=== PATIENT | male | born 1940 | race Caucasian/White ===

== ENCOUNTER 2018-03-02 15:54 | Observation (INO) ==
[2018-03-02] MEDS ORDERED: SALINE FLUSH 10ml SYRINGE IVF PRN (16:25)
--- NOTE | 2018-03-02 16:51 | Emergency Department Report ---
General Adult HPI - General Chief complaint: Medical Emergency Stated complaint: heat exhaustion Time Seen by Provider: 03/02/18 16:22 Source: police Mode of arrival: ambulatory Limitations: altered mental status - History of Present Illness HPI narrative: PT is brought in by [employer] after he was found walking around outside in over 90 degree temperatures wearing sweat pants and a sweat shirt. He had been out for several hours. Pt lives with his and son and it is not uncommon for him to be found several miles from home with no idea how to return. PD states they pick him up 3-4 times a week. Family has reported pt has been violent with them at times. has a difficult time trying to get pt to take his medications. Family is in the process of getting pt to [facility]. Pt does not have a DPOA. Onset (ago): unknown - Related Data Home Medications Medication Instructions Recorded Confirmed Donepezil [Aricept 10 mg] 10 mg PO HS 07/23/17 03/04/18 Finasteride [Proscar] 5 mg PO HS 07/23/17 03/04/18 Aspirin [Aspirin EC] 81 mg PO HS 11/08/17 03/04/18 Allergies Allergy/AdvReac Type Severity Reaction Status Date / Time No Known Drug Allergies Allergy Unknown Verified 02/15/18 10:14 Review of Systems Limitations: ROS unobtainable due to patient's medical condition PFS Patient Stated Medical History Alzheimer's Disease Yes Hypertension Yes Diabetes Mellitus Type 2 Yes Hx Benign Prostatic Yes Hyperplasia Surgical History: Prostate Biopsy, Cystoscopy. - Social History Smoking status: Former smoker Substance use type: does not use Alcohol intake frequency: does not drink Physical Exam - Limitations Limitations: altered mental status - General General appearance: alert - Normal Exams: Head:: Normocephalic without trauma Eyes:: Pupils are PERRLA w/ EOMI Chest/Respirations:: Clear all hooks, with good airflow, and symmetry bilaterally Cardiovascular:: Regular rate and rhythm, without murmur or gallop, Pulses 2+ all extremities, capillary refill, <2 seconds all extremities Abdomen:: Bowel sounds positive, soft, non-tender, non-distended Musculoskeletal:: No tenderness, or deformity noted, good range of motion, all extremities Integumentary:: No rashes Neurological:: Patient is alert - Expanded Neurological Exam Patient oriented to: Present: person. Absent: place, time Speech: Present: fluid speech - Psychiatric Psychiatric exam: Present: normal affect - Expanded Psychiatric Exam Expanded psych exam: Present: poor eye contact, loose associations Course Vital Signs Temperature 99.3 F 03/02/18 15:55 Pulse Rate 83 03/02/18 15:55 Respiratory Rate 18 03/02/18 15:55 Blood Pressure 129/68 03/02/18 15:55 Pulse Oximetry 94 03/02/18 15:55 Temperature 99.3 F 03/02/18 15:55 Pulse Rate 83 03/02/18 15:55 Respiratory Rate 18 03/02/18 15:55 Blood Pressure 129/68 03/02/18 15:55 Pulse Oximetry 94 03/02/18 15:55 Medical Decision Making - MDM Narrative Medical decision making narrative: Per [employer] pt does have an open case with DCF. Case management contacted to discuss care options. Case management recommends a medical admit if possible with a psych consult for competency. Labs reviewed with no acute findings. Dr Renae notified for any available admit criteria. She recommends discussing with case management. Case management contacted again and states pt can be admitted observation as he is a risk of harm to self and others. Dr Renae notified and will admit. - Differential Diagnosis Hypoglycemia, UTI, Dehydration, Dementia - Lab Data Lab results reviewed: Yes: I reviewed the patient's lab results. Result diagrams: 03/02/18 16:47 03/02/18 16:47 Disposition Clinical Impression: Progressive dementia with uncertain etiology Disposition: 02 To [facility] Condition: Stable - Seen By: midlevel
--- NOTE | 2018-03-02 19:22 | History & Physical Report ---
History of Present Illness Date: 03/02/18 Chief complaint: dementia with agitation HPI: The patient is a 77-year-old male with Alzheimer's type dementia who lives at home with his . He has been having progressive difficulties with behaviors. He frequently leaves the house and wanders the streets. The police department has been called multiple times to bring him back home. Per the patient's , they recommended that she follow him in the car when he goes out to walk. Today he was walking for 1-2 hours out in the heat and she was unable to get him to come back home or get in the car. While she was trying to get him into the car, the police and EMS were called and the patient eventually was brought to the emergency room for evaluation and treatment. The patient's states she can no longer handle him at home. She states at times he has violent with her and her son. I was asked to admit the patient for worsening behaviors with Alzheimer's dementia. He will likely need help with placement and case management will be consulted in the morning. When I came to see the patient in the emergency room, he was sleeping but awakened easily. He is pleasant currently and denies any complaints. He specifically denies chest pain, shortness of breath or nausea. He states he's not hungry. He has no complaints other than his right medial thumb has a blister which is covered with a Band-Aid. His was not present in the emergency room. I asked him if he was and he said no. I asked him if he lived alone and he said yes. I did call and talk with the patient's who had gone home to eat. Past medical history was obtained mostly from her. She states he has been healthy other than his dementia. She denies any recent illnesses for him. She states he has not had any new symptoms other than his violence and worsening confusion. Review of Systems ROS unobtainable: due to mental status (dementia) Past Medical History Medical History Updates: Hypertension, diabetes, presumed BPH, dementia. The patient's specifically denies history of cancer, strokes, heart disease, lung disease, seizures Surgical History: Prostate Biopsy, Cystoscopy. Bilateral cataract surgery Family History: No family history of Alzheimer's or other dementia Family History: As Above - Social History Smoking status: Former smoker Substance use type: does not use Alcohol intake: former (no history of heavy use) Housing: house Household members: spouse Medications Home Medications Medication Instructions Recorded Confirmed Type hydroCHLOROthiazide 25 mg PO DAILY #0 08/13/09 03/02/18 History [Hydrochlorothiazide] Donepezil [Aricept 10 mg] 10 mg PO HS 07/23/17 03/02/18 History Finasteride [Proscar] 5 mg PO HS 07/23/17 03/02/18 History Metformin HCl [Metformin HCl ER] 500 mg PO BID 07/23/17 03/02/18 History Aspirin [Aspirin EC] 81 mg PO HS 11/08/17 03/02/18 History Glimepiride [Amaryl] 2 mg PO DAILY 02/15/18 03/02/18 History Allergies Allergy/AdvReac Type Severity Reaction Status Date / Time No Known Drug Allergies Allergy Unknown Verified 02/15/18 10:14 Exam Vital Signs: Temperature 99.3 F 03/02/18 15:55 Pulse Rate 83 03/02/18 15:55 Respiratory Rate 18 03/02/18 15:55 Blood Pressure 129/68 03/02/18 15:55 Pulse Oximetry 94 03/02/18 15:55 Comments: Temperature is 99.3, heart rate 83, respirations 18, blood pressure 129/68, O2 sat 94% on room air GEN-alert, oriented to self only, no acute distress HEENT-left pupil is slightly larger than the right and irregular in shape. Both pupils are reactive to light. Sclera are anicteric. Oropharynx is moist. NECK-supple, carotids are silent CV-regular rate and rhythm with an occasional ectopic beat. No murmurs CHEST-clear to auscultation bilaterally ABD-mildly firm, no tenderness, no rebound or guarding, positive bowel sounds -no Donato EXT-no edema NEURO-significant for severe dementia. No tremors. Cranial nerves II through XII is somewhat difficult to obtain, but no deficits are noted other than pupils being unequal which is likely a postsurgical change from cataract surgery. Motor strength is equal in the upper and lower extremities. He reportedly walked for an hour or more today unassisted. SKIN-arm and dry. He has multiple tattoos. He has a blister on the right thumb which is covered with a Band-Aid Results - Labs CBC & Chem 7: 03/02/18 16:47 03/02/18 16:47 Labs: Liver enzymes are essentially normal. Troponin is normal. Urinalysis is negative for signs of infection. - Impressions EKG reveals sinus rhythm Assessment and Plan Assessment and Plan: Impression Alzheimer's dementia Increasing behavior issues, most likely related to his dementia. Currently, no signs of infection or other acute issues that would cause a delirium. Type 2 diabetes mellitus Hypertension Presumed BPH Unequal pupils, likely secondary to cataract surgery Mild anemia with hemoglobin 10.9 Plan We'll admit the patient to the hospital as observation for safety regarding increased behavior issues and wandering which makes him at risk for hyperthermia with elevated temperatures outside. Consult case management/social work tomorrow to help with placement. Family may need assistance with initiating guardianship. Resume home medications. Check B-12 and TSH regarding altered mental status. Consider CT head if not done an outpatient setting. Monitor Accu-Cheks. Will have Haldol available IV or by mouth for agitation if needed DVT Prophylaxis: other Resuscitation Status: Full Code - Physician Narrative Narrative: Date: 03/02/18 Time: 1916 Hospital Course Summary Disclaimer: The visit summary below is not to be considered part of the above Progress Note.
[2018-03-02] MEDS ORDERED: HALOPERIDOL 5 MG/ML INJECTION IVP PRN (19:33)
[2018-03-02] MEDS ORDERED: HALOPERIDOL 1 MG TABLET PO PRN (19:33)
[2018-03-02] MEDS ORDERED: SENNA + DOCUSATE TABLET PO PRN (19:33)
[2018-03-02] MEDS ORDERED: GLUCOSE ORAL GEL 40% 37.5gm PO PRN (19:33)
[2018-03-02] MEDS ORDERED: DEXTROSE 50% SYRINGE 50ml (1 AMP) IVP PRN (19:33)
[2018-03-02] MEDS ORDERED: ONDANSETRON 4 MG/2 ML INJECTION IVP PRN (19:33)
[2018-03-02] MEDS ORDERED: ACETAMINOPHEN 325 MG TABLET PO PRN (19:33)
[2018-03-02] MEDS ORDERED: FALL RISK - PHARMACY CONSULT MC ONE (19:49)
[2018-03-02 19:56] VITALS: BMI 21.7
[2018-03-03] MEDS ORDERED: CYANOCOBALAMIN (B-12) 500mcg TABLET PO SCH (09:00)
--- NOTE | 2018-03-03 12:59 | Progress Note ---
- Date 03/03/18 Subjective: Brennon is seen in follow up. He is resting quietly, opens eyes to command. He cannot tell me where he is "Here". Does not know year "I don't know" Has trouble remembering his name (after a pause) "Vasyl" Is unable to give me any additional information. Denies pain. Objective Vital signs: Temperature 95.5 F L 03/03/18 07:45 Pulse Rate 66 03/03/18 07:45 Respiratory Rate 14 03/03/18 07:45 Blood Pressure 124/78 03/03/18 07:45 Pulse Oximetry 97 03/03/18 07:45 Height/Weight/BMI: Height 1.68 m Weight 60.9 kg Body Mass Index 21.7 Comments: Gen.: Patient is arousable. Very confused. Somewhat oriented to self only. He appears younger than stated age. He is a bit disheveled. Head: Atraumatic. Neck: Supple. Cardiovascular: S1, S2. Regular rate and rhythm. No peripheral edema. Pulmonary: Lungs are clear to auscultation bilaterally. Respirations even, unlabored. Abdomen: Soft, nontender, nondistended. Extremities: No edema, no cyanosis or clubbing. Neuro: Patient is oriented only to self. He is alert. He is moving all extremities. Results - Labs CBC & Chem 7: 03/02/18 16:47 03/02/18 16:47 Assessment and Plan (1) Progressive dementia with uncertain etiology Current visit: Yes Status: Acute Assessment and Plan: Impression Alzheimer's dementia Increasing behavior issues, most likely related to his dementia. Currently, no signs of infection or other acute issues that would cause a delirium. Type 2 diabetes mellitus Hypertension Presumed BPH Unequal pupils, likely secondary to cataract surgery Mild anemia with hemoglobin 10.9 Plan 03/03/18 Continue observation stay due to safety concerns, wandering, self-care deficit. Case management is working on possible placement issues. His lack of a guardian is a barrier, we may need to initiate a court hold to allow him to be admitted to an inpatient psychiatry unit for stabilization. Family reports that he has been volatile in regards to behaviors, has threatened and son. His wandering makes him at high risk for injury due to elevated temperature and inability to maintain orientation. Will resume aspirin and Proscar from home medications. His A1c is mildly elevated, but blood sugar here has been low normal. Continue to monitor blood sugar and hold Amaryl and metformin. We'll hold antihypertensives. Repeat labs in a.m. for stability due to anemia, mild dehydration. Will hold off on any DVT prophylaxis, as patient has confusion that SCDs could exacerbate. He has elevated fall risk, hold off on Lovenox for now. He continues to require inpatient admission, we may need to initiate anticoagulants at that time. 03/03/2018-4 PM-I examined the patient independently. I reviewed this chart, the patient history, and the NETWORK SUPPORT's/PA's documented findings as above. We discussed and formulated the assessment and plan as above with the additions below.-Dr. Renae Patient was seen this afternoon in his room accompanied by his . He is lying in bed and eating lunch. He states he is feeling fine. He denies any pain. He denies shortness of breath. He denies nausea. His states that his confusion seems at baseline. This morning he was anxious, agitated and trying to punch staff members. He was taking off his down and trying to ambulate in the halls unclothed. On exam he is alert and pleasant. He continues to be confused which is his baseline. Chest is clear to auscultation. Cardiovascular reveals regular rate and rhythm. Abdomen is soft and nontender. Extremities are free of edema. Lab reveals a borderline low B 12 level of 314. Hemoglobin A1c is 7.8. TSH is 1.32. Impression Alzheimer's type dementia with increasing behavior issues Type 2 diabetes Hypertension Borderline low B 12 Mild anemia Plan Admit to talk with the patient's and the patient does not have a DPOA. I do not think he is competent to make a decision regarding her DPOA. Dr. Ramirez has been consulted to help determine competency to make his own decisions. He will likely need a guardian. The wrapper caser is helping the family with safe discharge options. We've also asked Dr. Ramirez to help with medications regarding his intermittent aggressive behaviors. Check methylmalonic acid level and homocystine level regarding low B 12. Start oral B 12 at this time. Recheck CBC and basic metabolic profile tomorrow. DVT Prophylaxis: other Resuscitation Status: Full Code - Physician Narrative Narrative: Date: 03/03/18 Time: 1256 Hospital Course Summary Disclaimer: The visit summary below is not to be considered part of the above Progress Note. Hospital Course: 03/03/18 Continue observation stay due to safety concerns, wandering, self-care deficit. Case management is working on possible placement issues. His lack of a guardian is a barrier, we may need to initiate a court hold to allow him to be admitted to an inpatient psychiatry unit for stabilization. Family reports that he has been volatile in regards to behaviors, has threatened and son. His wandering makes him at high risk for injury due to elevated temperature and inability to maintain orientation. Will resume aspirin and Proscar from home medications. His A1c is mildly elevated, but blood sugar here has been low normal. Continue to monitor blood sugar and hold Amaryl and metformin. We'll hold antihypertensives. Repeat labs in a.m. for stability due to anemia, mild dehydration. Will hold off on any DVT prophylaxis, as patient has confusion that SCDs could exacerbate. He has elevated fall risk, hold off on Lovenox for now. He continues to require inpatient admission, we may need to initiate anticoagulants at that time.
[2018-03-03 15:40] VITALS: BP 133/69; PULSE 64; RESP 18; TEMP 97.5; O2SAT 96
--- NOTE | 2018-03-03 16:51 | Discharge Summary ---
Discharge Information Date of admission: 03/02/18 18:58 Attending Physician: Bobbi Renae MD Primary care physician: Liang Landry MD Consults: 03/02/18 19:33 Case Management Consult [CONS] Routine Reason For Exam: help with placement 03/03/18 09:45 Physician Consult [CONS] Routine Consulting Provider: Daniela Ramirez Reason For Exam: dementia with behaviors-help with behaviors Ordering Provider has Notified Oracle Manager: Yes 03/03/18 10:58 Physician [Physician Consult] [CONS] Routine Consulting Provider: [facility] Reason For Exam: placement Ordering Provider has Notified Oracle Manager: Yes - Discharge Diagnosis (1) Progressive dementia with uncertain etiology Status: Acute Alzheimer's dementia Increasing behavior issues, most likely related to his dementia. Currently, no signs of infection or other acute issues that would cause a delirium. Type 2 diabetes mellitus Hypertension Presumed BPH Unequal pupils, likely secondary to cataract surgery Mild anemia with hemoglobin 10.9 - Laboratory Labs: Laboratory Tests 03/02/18 03/02/18 03/02/18 16:47 16:47 16:47 WBC 4.7 Hgb 10.9 L Plt Count 308 Sodium 146 Potassium 3.7 Chloride 104 Carbon Dioxide 30 Anion Gap 12 BUN 21.0 H Creatinine 1.4 GFR Calculation 49 BUN/Creatinine Ratio 15 Glucose 141 H Glucometer Hemoglobin A1c Calculated Osmolality 286 H Calcium 9.2 Total Bilirubin 0.40 AST 17 ALT 11 Alkaline Phosphatase 145 H Troponin I < 0.012 Total Protein 7.3 Albumin 4.0 Globulin 3.3 Albumin/Globulin Ratio 1.2 Vitamin B12 314 TSH 03/02/18 03/02/18 16:47 19:46 WBC Hgb Plt Count Sodium Potassium Chloride Carbon Dioxide Anion Gap BUN Creatinine GFR Calculation BUN/Creatinine Ratio Glucose Glucometer 100 Hemoglobin A1c 7.8 H Calculated Osmolality Calcium Total Bilirubin AST ALT Alkaline Phosphatase Troponin I Total Protein Albumin Globulin Albumin/Globulin Ratio Vitamin B12 TSH 1.32 Urinalysis was essentially negative History of Present Illness HPI: The patient is a 77-year-old male with Alzheimer's type dementia who lives at home with his . He has been having progressive difficulties with behaviors. He frequently leaves the house and wanders the streets. The police department has been called multiple times to bring him back home. Per the patient's , they recommended that she follow him in the car when he goes out to walk. Today he was walking for 1-2 hours out in the heat and she was unable to get him to come back home or get in the car. While she was trying to get him into the car, the police and EMS were called and the patient eventually was brought to the emergency room for evaluation and treatment. The patient's states she can no longer handle him at home. She states at times he has violent with her and her son. I was asked to admit the patient for worsening behaviors with Alzheimer's dementia. He will likely need help with placement and case management will be consulted in the morning. When I came to see the patient in the emergency room, he was sleeping but awakened easily. He is pleasant currently and denies any complaints. He specifically denies chest pain, shortness of breath or nausea. He states he's not hungry. He has no complaints other than his right medial thumb has a blister which is covered with a Band-Aid. His was not present in the emergency room. I asked him if he was and he said no. I asked him if he lived alone and he said yes. I did call and talk with the patient's by telephone. Past medical history was obtained mostly from her. She states he has been healthy other than his dementia. She denies any recent illnesses for him. She states he has not had any new symptoms other than his violence and worsening confusion. Objective Vital signs: Temperature 97.5 F 03/03/18 15:37 Pulse Rate 64 03/03/18 15:37 Respiratory Rate 18 03/03/18 15:37 Blood Pressure 133/69 03/03/18 15:37 Pulse Oximetry 96 03/03/18 15:37 Height/Weight/BMI: Height 1.68 m Weight 60.9 kg Body Mass Index 21.7 Hospital Course This is a general summary of the patient's hospital course. For more details refer to the complete medical record. Hospital course: 03/02/2018 Impression Alzheimer's dementia Increasing behavior issues, most likely related to his dementia. Currently, no signs of infection or other acute issues that would cause a delirium. Type 2 diabetes mellitus Hypertension Presumed BPH Unequal pupils, likely secondary to cataract surgery Mild anemia with hemoglobin 10.9 Plan We'll admit the patient to the hospital as observation for safety regarding increased behavior issues and wandering which makes him at risk for hyperthermia with elevated temperatures outside. Consult case management/social work tomorrow to help with placement. Family may need assistance with initiating guardianship. Resume home medications. Check B-12 and TSH regarding altered mental status. Consider CT head if not done an outpatient setting. Monitor Accu-Cheks. Will have Haldol available IV or by mouth for agitation if needed 03/03/18 Continue observation stay due to safety concerns, wandering, self-care deficit. Case management is working on possible placement issues. His lack of a guardian is a barrier, we may need to initiate a court hold to allow him to be admitted to an inpatient psychiatry unit for stabilization. Family reports that he has been volatile in regards to behaviors, has threatened and son. His wandering makes him at high risk for injury due to elevated temperature and inability to maintain orientation. Will resume aspirin and Proscar from home medications. His A1c is mildly elevated, but blood sugar here has been low normal. Continue to monitor blood sugar and hold Amaryl and metformin. We'll hold antihypertensives. Repeat labs in a.m. for stability due to anemia, mild dehydration. Will hold off on any DVT prophylaxis, as patient has confusion that SCDs could exacerbate. He has elevated fall risk, hold off on Lovenox for now. He continues to require inpatient admission, we may need to initiate anticoagulants at that time. Addendum-Dr. Ramirez did see the patient and after discussion with case management and the patient's , the patient will be accepted to [facility] for further evaluation and treatment of his dementia with aggressive behaviors. Will transfer to [facility] unit this afternoon. Would hold on hydrochlorothiazide for now and watch blood pressure. This may need to be restarted. Blood sugars have been well controlled off of metformin and Amaryl. I would monitor blood sugars off of these medications and if blood sugars are frequently elevated, can restart. Resuscitation Status: Full Code Discharge Plan - Discharge Disposition Disposition: 63 To [facility] *Condition: Stable Reason For Visit (Visit label in EMR): dementia with behaviors - Discharge Medications Medication Comments: Home meds prior to admission were: Hydrochlorothiazide 25 mg one by mouth daily Aricept 10 mg 1 by mouth daily at bedtime Proscar 5 mg by mouth daily at bedtime Metformin 500 mg by mouth twice a day Aspirin 81 mg daily at bedtime Glimepiride 2 mg by mouth daily *Discharge Medications: Continue Finasteride [Proscar] 5 mg PO HS Donepezil [Aricept 10 mg] 10 mg PO HS Aspirin [Aspirin EC] 81 mg PO HS Discontinued hydroCHLOROthiazide [Hydrochlorothiazide] 25 mg PO DAILY #0 Metformin HCl [Metformin HCl ER] 500 mg PO BID Glimepiride [Amaryl] 2 mg PO DAILY - Discharge Packet/Instructions *Diet: Diabetic diet *Activity: Up with assist *Pain Management/Treatment: Tylenol as needed *Wound Care: Bandage to right thumb as needed *Expected Signs/Symptoms: Not applicable *Notify Physician if: Not applicable *During Business Hours Contact: Not applicable *After Business Hours Contact: Not applicable *Pending Lab/Results: Follow up w/Provider - IRU/GEN Discharge/Transfer - Referrals/Follow Up - Patient Handouts - Dismissal Complete Discharge Instructions are:: Complete Physician Narrative - Narrative Attestation Narrative: Date: 03/03/18 Time: [id number]
[2018-03-03] MEDS ORDERED: HALOPERIDOL 5 MG/ML INJECTION IM PRN (19:50)
[2018-03-03] MEDS ORDERED: HALOPERIDOL 0.5 MG TABLET PO PRN (19:50)
[2018-03-03] MEDS ORDERED: LORazepam 0.5 MG TABLET PO PRN (19:50)
[2018-03-03] MEDS ORDERED: FINASTERIDE 5 MG TABLET PO SCH (21:00)
[2018-03-03] MEDS ORDERED: DONEPEZIL 10 MG TABLET PO SCH (21:00)
[2018-03-03] MEDS ORDERED: ASPIRIN *EC* 81 MG TABLET PO SCH (21:00)
== END 2018-03-03 18:10 ==
LOC: EDHOLD 15:54 → ED 15:54 → EDHOLD 19:15 → MED 19:20
PROVIDERS: ADMIT Internal Medicine; ATTEND Internal Medicine

== ENCOUNTER 2018-03-03 18:55 | Inpatient (IN) ==
[2018-03-03] MEDS ORDERED: GLUCOSE ORAL GEL 40% 37.5gm PO PRN (20:34)
[2018-03-03] MEDS ORDERED: SENNA + DOCUSATE TABLET PO PRN (20:34)
[2018-03-03] MEDS ORDERED: FALL RISK - PHARMACY CONSULT MC ONE ×2 (20:34)
[2018-03-03] MEDS ORDERED: DEXTROSE 50% SYRINGE 50ml (1 AMP) IVP PRN (20:34)
[2018-03-03] MEDS ORDERED: SALINE FLUSH 10ml SYRINGE IVF PRN (20:34)
[2018-03-03] MEDS ORDERED: HALOPERIDOL 0.5 MG TABLET PO PRN (20:35)
[2018-03-03] MEDS ORDERED: HALOPERIDOL 5 MG/ML INJECTION IM PRN (20:35)
[2018-03-03] MEDS ORDERED: LORazepam 0.5 MG TABLET PO PRN (20:35)
[2018-03-03] MEDS: FINASTERIDE 5 MG TABLET PO SCH ×2 (21:57→22:48)
[2018-03-03] MEDS: ASPIRIN *EC* 81 MG TABLET PO SCH ×2 (22:07→22:48)
[2018-03-03 22:22] VITALS: BMI 23.4
[2018-03-04] MEDS: CYANOCOBALAMIN (B-12) 500mcg TABLET PO SCH (08:22)
--- NOTE | 2018-03-04 10:09 | History & Physical Report ---
History of Present Illness Date: 03/04/18 HPI: Brennon Fallon is a 77 y/o with a hx of dementia, who was [place] [facility] [place] for increasing behaviors. Specifically, there were concerns about wandering and aggressive behavior. Multiple imaging studies were obtained: films of right wrist/hand revealed chronic deformity of distal radius and questionable ulnar styloid fx; CT head/c-spine were neg for acute findings. Labs were stable with the exception of mild normocytic anemia. Vit B12 was low-normal and methylmalonic acid was ordered, pending. HCTZ was held on admit d/t concern about dehydration. Hb A1c was 7.8%. Metformin and Amaryl were held d/t well- controlled blood sugars. Dr. Ramirez was consulted and [facility]. Mr. Fallon was seen on 03/04/18. He was pleasantly confused and did not answer all questions. He was in no acute distress. He was a poor historian and ROS/PMH was obtained from previous admission. The PURCHASING EXPEDITOR at bedside who was helping him get ready for the day reported that he was c/o b/l arm pain when she gently touched his arms. His right wrist was swollen and tender over the distal radius , and he had reduced ROM. He was unable to provide any details as to duration/ cause of symptoms. There were also ecchymotic areas on both arms. Review of Systems ROS unobtainable: due to mental status Review of systems: c/o right wrist pain Past Medical History Medical History Updates: Alzheimer's dementia. Type 2 diabetes mellitus. Hypertension. Presumed BPH. OA. Unequal pupils, likely secondary to cataract surgery. Mild anemia Surgical History: Prostate Biopsy, Cystoscopy. Bilateral cataract surgery Family History Updates: Unobtainable from patient; per previous H&P: No family history of Alzheimer's or other dementia Family History: As Above - Social History Smoking status: Former smoker Substance use type: does not use Alcohol intake frequency: former alcohol drinker (reportedly not heavy EtOH use) Household members: spouse Medications Home Medications Medication Instructions Recorded Confirmed Type Donepezil [Aricept 10 mg] 10 mg PO HS 07/23/17 03/04/18 History Finasteride [Proscar] 5 mg PO HS 07/23/17 03/04/18 History Aspirin [Aspirin EC] 81 mg PO HS 11/08/17 03/04/18 History Allergies Allergy/AdvReac Type Severity Reaction Status Date / Time No Known Drug Allergies Allergy Unknown Verified 02/15/18 10:14 Exam Vital Signs: Temperature 97.4 F 03/04/18 08:00 Pulse Rate 58 L 03/04/18 08:00 Respiratory Rate 16 03/04/18 08:00 Blood Pressure 156/83 H 03/04/18 08:00 Pulse Oximetry 98 03/04/18 08:00 Height/Weight/BMI: Height 1.6 m Weight 60.1 kg Body Mass Index 23.4 - Constitutional Present: no acute distress, well nourished, well developed, thin - Routine HEENT Exam Head: Present: normocephalic Eye: Absent: conjunctival icterus, scleral injection ENT: Present: oropharynx clear - Routine Neck Exam Present: supple. Absent: lymphadenopathy - Routine Respiratory Exam Present: CTA bilaterally - Routine Cardiovascular Exam Present: RRR, S1, S2 - Routine Abdominal Exam Present: soft, normoactive bowel sounds, non distended, non tender - Routine Extremities Exam Present: no edema, pulses intact, joint swelling (right wrist with tenderness over distal radius. Ulnar styloid nontender. Reduced ROM to right wrist.) - Routine Skin Exam Present: intact, dry, warm, ecchymosis (b/l forearms) - Routine Neurological Exam Present: alert, altered mental status, moving all extremities - Routine Psychiatric Exam Present: cooperative Assessment and Plan (1) Progressive dementia with uncertain etiology Current visit: No Status: Acute Assessment and Plan: ASSESSMENT Alzheimer's dementia Type 2 diabetes mellitus Hypertension Presumed BPH OA Unequal pupils, likely secondary to cataract surgery Mild normocytic anemia PLAN Agree with admission to [facility]. Previous imaging studies were reviewed. No acute fracture of right wrist over area of tenderness to distal radius. HTN - HCTZ was discontinued while on acute. Monitor BP and may consider restarting a different agent to minimize risk for dehydration, if BP are consistently elevated. DM2 - Metformin 500 mg BID and Amaryl 2 mg daily were discontinued while on acute. Monitor sugars and may restart Metformin and monitor response. Vit B12 low-normal and methylmalonic acid is pending. Care to return to Dr. Landry at time of discharge. 03/04/2018-10:30 PM -I examined the patient independently. I reviewed this chart , the patient history, and the RESEARCH MANUFACTURING OPERATOR's/PA's documented findings as above. We discussed and formulated the assessment and plan as above with the additions below.-Dr. Renae Patient was seen earlier this evening in his room. He was eating chocolate pudding. When asked if he was having any pain he pointed to his right wrist. He does have swelling and mild erythema over the dorsum of his right wrist. This area is tender. There is no increased warmth. He denies pain elsewhere. He denies any other complaints, but does have severe dementia. He denies feeling short of breath. He denies any chest pain. He denies any nausea. On Exam, he is alert and in no acute distress. Chest is clear to auscultation. Cardiovascular reveals a regular rate and rhythm. Abdomen is soft and nontender. Bilateral lower extremities reveal no edema. Left upper extremity reveals no edema. Right dorsum of his wrist feels edema and erythema with tenderness. 02/15/2018 x-ray of the right hand reveals a possible nondisplaced ulnar styloid fracture. 02/15/2018 CT head reveals no evidence of acute traumatic abnormality. He does have signs of chronic microvascular ischemia. 02/15/2018 CT C-spine shows no acute traumatic abnormality of the cervical spine. Impression and plan Severe dementia with behaviors-the patient was admitted to the [facility] to initiate medical therapy Hypertension-monitor, may need to restart hydrochlorothiazide versus a different antihypertensive if he continues to have elevated blood pressure Regarding diabetes, consider restarting metformin if blood sugars are elevated Re: B-12 deficiency-continue B-12 supplement and await homocystine and methylmalonic acid levels Regarding right wrist pain and swelling with possible nondisplaced ulnar styloid fracture, will repeat x-rays today and consult Dr. Saravia to see the patient tomorrow. I did ask the nurse to give him some Tylenol for pain and could offer a cold pack as well. Resuscitation Status: Full Code - Physician Narrative Narrative: Date: 03/04/18 Time: 1006 Hospital Course Summary Disclaimer: The visit summary below is not to be considered part of the above Progress Note. Hospital Course: 03/04/18 Agree with admission to [facility]. Previous imaging studies were reviewed. No acute fracture of right wrist over area of tenderness to distal radius. HTN - HCTZ was discontinued while on acute. Monitor BP and may consider restarting a different agent to minimize risk for dehydration, if BP are consistently elevated. DM2 - Metformin 500 mg BID and Amaryl 2 mg daily were discontinued while on acute. Monitor sugars and may restart Metformin and monitor response. Vit B12 low-normal and methylmalonic acid is pending.
--- NOTE | 2018-03-04 11:48 | 24 Hour Neuropsychiatic Eval ---
Date of Admission: 03/03/18 18:55 Chief complaint: "I don't know" History of Present Illness: Patient is a 77 y/o , retired male who was admitted to [facility] [place] due to concerns for safety. After ensuring medical stabilization, patient was then admitted to [facility] on 03/03/18 for psychiatric evaluation and stabilization. He has previously been diagnosed with dementia. He also has a past hx of DMI and HTN but has been refusing his medications. He has been cursing at staff and verbally aggressive at times since admission. Patient has been living at home with his , who feels she is no longer able to safely care for him. He has been wandering from the home even in the heat, and she has not been able to redirect him to come back home with her. Per hospitalist: "Multiple imaging studies were obtained: films of right wrist/ hand revealed chronic deformity of distal radius and questionable ulnar styloid fx; CT head/c-spine were neg for acute findings. Labs were stable with the exception of mild normocytic anemia. Vit B12 was low-normal and methylmalonic acid was ordered, pending. HCTZ was held on admit d/t concern about dehydration. Hb A1c was 7.8%. Metformin and Amaryl were held d/t well- controlled blood sugars." Patient does not have a DPOA. He was willing to sign himself in to the unit and APS has been contacted re: emergency guardianship. Will file MHP if patient attempts to leave or receives medications against his will. Dementia: Memory Impairment, Poor Executive Functioning Reviewed: Home Medications, Allergies, Current Lab Data, Imaging Reports, Current EKG(s), Nursing Notes, Physician Consults [facility] Patient Stated Medical History Alzheimer's Disease Yes Dementia Yes Hypertension Yes Diabetes Mellitus Type 2 Yes Hx Benign Prostatic Yes Hyperplasia Medical History Updates: Alzheimer's dementia. Type 2 diabetes mellitus. Hypertension. Presumed BPH. OA. Unequal pupils, likely secondary to cataract surgery. Mild anemia Surgical History: Prostate Biopsy, Cystoscopy. Bilateral cataract surgery Family History Updates: Unobtainable from patient; per previous H&P: No family history of Alzheimer's or other dementia - Social History Smoking status: Former smoker Substance use type: does not use Alcohol intake: former (no history of heavy use) Alcohol intake frequency: former alcohol drinker (reportedly not heavy EtOH use) Housing: house Household members: spouse Social history: Unobtainable from patient - will gather collateral from . Lives with at home. Strengths: Family. Needs DPOA and to apply for Medicaid for placement. Review of Systems ROS unobtainable: due to mental status Mental Status Exam Vitals: Last Vital Signs Temp 97.4 F 03/04/18 08:00 Pulse 58 L 03/04/18 08:00 Resp 16 03/04/18 08:00 BP 156/83 H 03/04/18 08:00 Pulse Ox 98 03/04/18 08:00 Height: 1.6 m Weight: 60.1 kg - Mental Status Exam Muscle Strength/Tone: Weak Dressing: Casual Grooming: Disheveled Attitude: Cooperative Motor Activity: Retardation Eye Contact: Fair Speech: Slowed Volume: Soft Rhythm: Paucity of Language Sensory: Alert Orientation: Disoriented to time, Disoriented to place, Disoriented to situation , Oriented to person Mood: Neutral (mood has been labile per and staff at admission) Rate of Thoughts: Delayed Thought Organization: [place], Confused Associations: Illogical Abstract Reasoning: Impaired, concrete Computation: Poor Computation Thought Content: Other (Poverty of thought) Perception/Psychotic: Other (Unclear; denies and does not appear to be responding to internal stimuli) Language: Naming Impaired Fund of Knowledge: Poor fund of knowledge Memory: Poor-immediate, Poor-recent, Poor-remote Suicidal Ideation: Denies Homicidal Ideation: Denies Insight: Impaired Judgement: Impaired Impulse Control: Poor - Laboratory Laboratory Results - last 24 hr 03/03/18 03/04/18 03/04/18 22:12 06:19 09:59 Glucometer 123 132 264 Assessment and Plan (1) Major neurocognitive disorder Problem details: Moderate, etiology unknown at this point, with behavioral disturbance Current visit: Yes Status: Acute Agree with admission to [facility] for psychiatric evaluation and stabilization. Maintain safety and elopment precautios. Patient is voluntary at this point but we will file MHP if he attempts to leave or requires meds against his will. Have begun process for emergency guardianship as he has no DPOA. Will continue home meds for now with PRN medications available for anxiety/ agitation. Have consulted hospitalist for optimization of medical comorbidities. On admission: CBC, CMP, TSH, UA, Vitamin B12 and folate levels Will obtain additional collateral from , family. Patient cannot safely return to living at home with and will require placement. Will give 1x dose of Depakote sprinkles 250mg PO with dinner and monitor evening behavior/agitation.
[2018-03-04] MEDS: DIVALPROEX SPRINKLE 125 MG CAPSULE PO SCH (17:58)
[2018-03-04] MEDS: ASPIRIN *EC* 81 MG TABLET PO SCH (20:29)
[2018-03-04] MEDS: FINASTERIDE 5 MG TABLET PO SCH (20:29)
[2018-03-04] MEDS: ACETAMINOPHEN 325 MG TABLET PO PRN (21:42)
--- NOTE | 2018-03-05 08:20 | XRay Report ---
Indication: right wrist pain and swelling unknown if injury PROCEDURE: XR wrist RT 3-4 views: Encounter: Subsequent Comparison: February 15, 2018 Findings: Subtle lucency seen in the distal ulna could represent a nondisplaced fracture. No definite periosteal reaction or callus formation however. No new area concerning for fracture. Degenerative change in the radiocarpal joint and radial styloid. Impression: Possible nondisplaced distal ulnar fracture. .
[2018-03-05] MEDS: CYANOCOBALAMIN (B-12) 500mcg TABLET PO SCH (10:17)
--- NOTE | 2018-03-05 10:53 | Neuropsych Progress Note ---
[facility] Subjective Date: 03/05/18 - Sujective/Severity of Illness Medications: Acetaminophen (Tylenol) 325 - 650 mg PO Q5H PRN PRN Reason: Discomfort Last Admin: 03/04/18 21:42 Dose: 650 mg Aspirin (Ecotrin) 81 mg PO HS [facility] Last Admin: 03/04/18 20:29 Dose: 81 mg Cyanocobalamin (Vit. B-12) 1,000 mcg PO DAILY [facility] Last Admin: 03/05/18 10:17 Dose: 1,000 mcg Dextrose (D50%W) 20 ml IVP PRN PRN PRN Reason: Hypoglycemia Divalproex Sodium (Depakote Sprinkle) 250 mg PO 18 [facility] Last Admin: 03/04/18 17:58 Dose: 250 mg Finasteride (Proscar) 5 mg PO HS [facility] Last Admin: 03/04/18 20:29 Dose: 5 mg Glucose (Glutose 15) 37.5 gm PO PRN PRN PRN Reason: Hypoglycemia Haloperidol (Haldol) 0.5 mg PO Q6H PRN PRN Reason: Extreme agitation Haloperidol Lactate (Haldol) 0.5 mg IM Q6H PRN PRN Reason: Extreme agitation Lorazepam (Ativan) 0.5 mg PO Q6H PRN PRN Reason: Extreme agitation Lorazepam (Ativan Inj) 0.5 mg IM Q6H PRN PRN Reason: Extreme agitation Senna/Docusate Sodium (Senna Plus Tablet) 1 tab PO BID PRN PRN Reason: Constipation Sodium Chloride (Iv Flush) 10 - 80 ml IVF PRN PRN PRN Reason: Flushing Subjective: Patient seen and chart reviewed. Case discussed with treatment team. Patient is asleep at time of rounds. Nursing staff report patient has been overall cooperative. He was say briefly at time he would like to leave but has been amenable to staying. Will request PT/OT eval for possible discharge to SNU. APS report filed to attempt to obtain guardian for patient. Patient has been adherent with medications. Patient slept 8.5 hours overnight. VSS. Patient is eating well. Psychotropic PRNs required in the past 24 hours: none. Start Time: 12:20 Stop Time: 12:40 Mental Status Exam Vitals: Last Vital Signs Temp 98.9 F 03/04/18 21:34 Pulse 84 03/04/18 21:34 Resp 24 03/04/18 21:34 BP 160/86 H 03/04/18 21:34 Pulse Ox 96 03/04/18 21:34 Height: 1.6 m Weight: 60.1 kg - Mental Status Exam Muscle Strength/Tone: Weak Dressing: Casual Grooming: Disheveled Attitude: Cooperative Motor Activity: Retardation Eye Contact: Good Speech: Slowed Volume: Soft Rhythm: Paucity of Language Orientation: Disoriented to time, Disoriented to place, Disoriented to situation , Oriented to person Mood: Neutral Affect: Bright (laughs often per nursing staff, often inappropriately) Rate of Thoughts: Delayed Thought Organization: [place], Confused Associations: Illogical Abstract Reasoning: Impaired, concrete Computation: Poor Computation Thought Content: Other (Poverty of thought) Perception/Psychotic: Perception Normal Language: Naming Impaired Fund of Knowledge: Poor fund of knowledge Memory: Poor-immediate, Poor-recent, Poor-remote Suicidal Ideation: None Homicidal Ideation: None Insight: Impaired Judgement: Impaired Impulse Control: Fair - Laboratory Laboratory Results - last 24 hr 03/04/18 03/04/18 03/05/18 14:06 21:40 07:25 Glucometer 288 254 Uric Acid 6.6 03/05/18 03/05/18 07:25 10:22 Glucometer 138 143 Uric Acid Assessment and Plan (1) Major neurocognitive disorder Problem details: Moderate, etiology unknown at this point, with behavioral disturbance Current visit: Yes Status: Acute Continue Depakote DR as above as patient did well last night. Will also order Vitamin B12 1000mg IM x 3 days. Hospital Course Summary Disclaimer: The visit summary below is not to be considered part of the above Progress Note. Hospital Course: 03/04/18 Agree with admission to [facility]. Previous imaging studies were reviewed. No acute fracture of right wrist over area of tenderness to distal radius. HTN - HCTZ was discontinued while on acute. Monitor BP and may consider restarting a different agent to minimize risk for dehydration, if BP are consistently elevated. DM2 - Metformin 500 mg BID and Amaryl 2 mg daily were discontinued while on acute. Monitor sugars and may restart Metformin and monitor response. Vit B12 low-normal and methylmalonic acid is pending. 03/04/18 Psych: Start Depakote DR 250mg PO daily at dinnertime to target HS agitation. 03/05/18 Psych: Continue Depakote DR as above as patient did well last night. Will also order Vitamin B12 1000mg IM x 3 days.
--- NOTE | 2018-03-05 14:17 | Orthopedic Consult Note ---
Orthopedic Consultation HPI - Consultation Info Consult Date: 03/05/18 Attending Physician: Daniela Ramirez MD Consult Reason: joint pain, other (Mr. Fallon is a 77-year-old gentleman in the [facility] unit. [facility] is been here for behavioral disturbances. He was noted to have redness and swelling to his right wrist. He' s been unable to tell anybody how long it's been that way. He does have a previous right wrist x-ray from an ER visit earlier this year. No other known history in regard to this wrist.) Review of Systems ROS unobtainable: due to mental status [facility] Patient Stated Medical History Alzheimer's Disease Yes Dementia Yes Hypertension Yes Diabetes Mellitus Type 2 Yes Hx Benign Prostatic Yes Hyperplasia Medical History Updates: Alzheimer's dementia. Type 2 diabetes mellitus. Hypertension. Presumed BPH. OA. Unequal pupils, likely secondary to cataract surgery. Mild anemia Surgical History: Prostate Biopsy, Cystoscopy. Bilateral cataract surgery Family History Updates: Unobtainable from patient; per previous H&P: No family history of Alzheimer's or other dementia - Social History Smoking status: Former smoker Substance use type: does not use Alcohol intake: former (no history of heavy use) Alcohol intake frequency: former alcohol drinker (reportedly not heavy EtOH use) Housing: house Household members: spouse Medications Home Medications Medication Instructions Recorded Confirmed Type Donepezil [Aricept 10 mg] 10 mg PO HS 07/23/17 03/04/18 History Finasteride [Proscar] 5 mg PO HS 07/23/17 03/04/18 History Aspirin [Aspirin EC] 81 mg PO HS 11/08/17 03/04/18 History Allergies Allergy/AdvReac Type Severity Reaction Status Date / Time No Known Drug Allergies Allergy Unknown Verified 02/15/18 10:14 Exam - Constitutional Vital Signs: Temperature 97.2 F 03/05/18 08:00 Pulse Rate 73 03/05/18 08:00 Respiratory Rate 16 03/05/18 08:00 Blood Pressure 143/78 H 03/05/18 08:00 Pulse Oximetry 97 03/05/18 08:00 General: cooperative Nutritional Appearance: average body habitus Orientation: alert Limitations: altered mental status - RUE General: other (swelling and erythema over the wrist mostly radially and dorsally no open lesions pain with any passive or active range of motion of the wrist.) Skin: no lesions Elbow Range of Motion: within normal limits Neurological: normal to light touch Vascular: radial pulse within normal limits - LUE General: normal to inspection Skin: no rashes or lesions noted Elbow Range of Motion: within normal limits Wrist Range of Motion: within normal limits - Diagnostic results Other Results: other (right wrist films were reviewed and show no acute injury he has underlying osteoarthritis and possible previous wrist fracture.) Impression and Recommendation (1) Right wrist pain Current visit: Yes Status: Acute I suspect gout but previous trauma or septic arthritis cannot be ruled out at this time. I recommended a trial of anti-inflammatory medications. If his swelling and pain and redness are not improved tomorrow and I'll likely discuss aspiration and start antibiotics empirically. He has had significant arthritic changes in that wrist and possible previous trauma. Hospital Course Summary Disclaimer: The visit summary below is not to be considered part of the above Progress Note. Hospital Course: 03/04/18 Agree with admission to [facility]. Previous imaging studies were reviewed. No acute fracture of right wrist over area of tenderness to distal radius. HTN - HCTZ was discontinued while on acute. Monitor BP and may consider restarting a different agent to minimize risk for dehydration, if BP are consistently elevated. DM2 - Metformin 500 mg BID and Amaryl 2 mg daily were discontinued while on acute. Monitor sugars and may restart Metformin and monitor response. Vit B12 low-normal and methylmalonic acid is pending.
[2018-03-05] MEDS: IBUPROFEN 600 MG TABLET PO PRN (17:31)
[2018-03-05] MEDS: DIVALPROEX SPRINKLE 125 MG CAPSULE PO SCH (17:31)
[2018-03-05] MEDS: ASPIRIN *EC* 81 MG TABLET PO SCH (20:25)
[2018-03-05] MEDS: FINASTERIDE 5 MG TABLET PO SCH (20:25)
[2018-03-05] MEDS: ACETAMINOPHEN 325 MG TABLET PO PRN (20:28)
[2018-03-06] MEDS: CYANOCOBALAMIN (B-12) 500mcg TABLET PO SCH (08:15)
[2018-03-06] MEDS: CYANOCOBALAMIN (B-12) 1,000mcg/ml INJECTION IM SCH (08:16)
--- NOTE | 2018-03-06 12:15 | Neuropsych Progress Note ---
[facility] Subjective Date: 03/06/18 - Sujective/Severity of Illness Medications: Acetaminophen (Tylenol) 325 - 650 mg PO Q5H PRN PRN Reason: Discomfort Last Admin: 03/05/18 20:28 Dose: 650 mg Aspirin (Ecotrin) 81 mg PO HS [facility] Last Admin: 03/05/18 20:25 Dose: 81 mg Cyanocobalamin (Vit. B-12) 1,000 mcg PO DAILY [facility] Last Admin: 03/06/18 08:15 Dose: 1,000 mcg Cyanocobalamin (Vit. B-12) 1,000 mcg IM DAILY [facility] Stop: 03/08/18 09:01 Last Admin: 03/06/18 08:16 Dose: 1,000 mcg Dextrose (D50%W) 20 ml IVP PRN PRN PRN Reason: Hypoglycemia Divalproex Sodium (Depakote Sprinkle) 250 mg PO 18 [facility] Last Admin: 03/05/18 17:31 Dose: 250 mg Finasteride (Proscar) 5 mg PO HS [facility] Last Admin: 03/05/18 20:25 Dose: 5 mg Glucose (Glutose 15) 37.5 gm PO PRN PRN PRN Reason: Hypoglycemia Ibuprofen (Motrin) 600 mg PO Q8H PRN PRN Reason: Pain Last Admin: 03/05/18 17:31 Dose: 600 mg Senna/Docusate Sodium (Senna Plus Tablet) 1 tab PO BID PRN PRN Reason: Constipation Sodium Chloride (Iv Flush) 10 - 80 ml IVF PRN PRN PRN Reason: Flushing Subjective: Pt seen and chart examined. Nursing reports pt is doing well. Sleeping well and has a good appetite. No behaviors noted. On face to face the pt is pleasant but confused. He reports his mood is stable. He denies any pain. Tolerating meds. voices no concerns at this time Start Time: 12:00 Stop Time: 12:15 Mental Status Exam Vitals: Last Vital Signs Temp 97.4 F 03/06/18 08:00 Pulse 79 03/06/18 08:00 Resp 18 03/05/18 21:19 BP 155/93 H 03/06/18 08:00 Pulse Ox 94 03/06/18 08:00 Height: 1.6 m Weight: 60.1 kg - Mental Status Exam Muscle Strength/Tone: Weak Dressing: Casual Grooming: Disheveled Attitude: Cooperative Motor Activity: Retardation Eye Contact: Good Speech: Slowed Volume: Soft Rhythm: Paucity of Language Orientation: Disoriented to time, Disoriented to place, Disoriented to situation , Oriented to person Mood: Neutral Rate of Thoughts: Delayed Thought Organization: [place], Confused Associations: Illogical Abstract Reasoning: Impaired, concrete Computation: Poor Computation Thought Content: Other (Poverty of thought) Perception/Psychotic: Perception Normal Language: Naming Impaired Fund of Knowledge: Poor fund of knowledge Memory: Poor-immediate, Poor-recent, Poor-remote Suicidal Ideation: None Homicidal Ideation: None Insight: Impaired Judgement: Impaired Impulse Control: Fair - Laboratory Laboratory Results - last 24 hr 03/05/18 03/05/18 03/06/18 15:52 20:16 06:12 Glucometer 115 241 144 03/06/18 11:02 Glucometer 216 Assessment and Plan (1) Major neurocognitive disorder Problem details: Moderate, etiology unknown at this point, with behavioral disturbance Current visit: Yes Status: Acute Hospital Course Summary Disclaimer: The visit summary below is not to be considered part of the above Progress Note. Hospital Course: 03/04/18 Agree with admission to [facility]. Previous imaging studies were reviewed. No acute fracture of right wrist over area of tenderness to distal radius. HTN - HCTZ was discontinued while on acute. Monitor BP and may consider restarting a different agent to minimize risk for dehydration, if BP are consistently elevated. DM2 - Metformin 500 mg BID and Amaryl 2 mg daily were discontinued while on acute. Monitor sugars and may restart Metformin and monitor response. Vit B12 low-normal and methylmalonic acid is pending. 03/04/18 Psych: Start Depakote DR 250mg PO daily at dinnertime to target HS agitation. 03/05/18 Psych: Continue Depakote DR as above as patient did well last night. Will also order Vitamin B12 1000mg IM x 3 days. 03/06/18 psych note- Continue current care
[2018-03-06] MEDS: IBUPROFEN 600 MG TABLET PO PRN ×2 (14:26→20:15)
--- NOTE | 2018-03-06 15:24 | Orthopedic Progress Note ---
Date: Date: 03/06/18 Time: 1521 Subjective/Severity of Illness: Wrist pain has improved but now more pain and swelling in the DIP of the index finger. Exam - Constitutional Vital Signs: Temperature 97.4 F 03/06/18 08:00 Pulse Rate 79 03/06/18 08:00 Respiratory Rate 18 03/05/18 21:19 Blood Pressure 155/93 H 03/06/18 08:00 Pulse Oximetry 94 03/06/18 08:00 General: cooperative Nutritional Appearance: average body habitus Orientation: alert Limitations: altered mental status - RUE Right Upper Extremity Comments: mild swelling over wrist (improved) worsening swelling over index finger (worse at DIP joint) Orthopedic Assessment and Plan (1) Right wrist pain Status: Acute Assessment and Plan: Will give one dose of Colchicine and reevaluate afterwards. In no improvement may start abx. Hospital Course Summary Disclaimer: The visit summary below is not to be considered part of the above Progress Note. Hospital Course: 03/04/18 Agree with admission to [facility]. Previous imaging studies were reviewed. No acute fracture of right wrist over area of tenderness to distal radius. HTN - HCTZ was discontinued while on acute. Monitor BP and may consider restarting a different agent to minimize risk for dehydration, if BP are consistently elevated. DM2 - Metformin 500 mg BID and Amaryl 2 mg daily were discontinued while on acute. Monitor sugars and may restart Metformin and monitor response. Vit B12 low-normal and methylmalonic acid is pending. 03/04/18 Psych: Start Depakote DR 250mg PO daily at dinnertime to target HS agitation. 03/05/18 Psych: Continue Depakote DR as above as patient did well last night. Will also order Vitamin B12 1000mg IM x 3 days. 03/06/18 psych note- Continue current care
[2018-03-06] MEDS ORDERED: COLCHICINE 0.6 MG TABLET PO ONE (15:30)
[2018-03-06] MEDS: DIVALPROEX SPRINKLE 125 MG CAPSULE PO SCH (17:28)
[2018-03-06] MEDS: FINASTERIDE 5 MG TABLET PO SCH (20:16)
[2018-03-06] MEDS: ASPIRIN *EC* 81 MG TABLET PO SCH (20:17)
[2018-03-07] MEDS: CYANOCOBALAMIN (B-12) 500mcg TABLET PO SCH (10:19)
[2018-03-07] MEDS: CYANOCOBALAMIN (B-12) 1,000mcg/ml INJECTION IM SCH (10:19)
--- NOTE | 2018-03-07 13:22 | Orthopedic Progress Note ---
Date: Date: 03/07/18 Time: 1320 Subjective/Severity of Illness: Right wrist/finger pain and swelling improved from yesterday. Colchicine given yesterday. He continues on ibuprofen scheduled. Exam - Constitutional Vital Signs: Temperature 96.8 F 03/07/18 08:00 Pulse Rate 67 03/07/18 08:00 Respiratory Rate 16 03/07/18 08:00 Blood Pressure 158/72 H 03/07/18 08:00 Pulse Oximetry 97 03/07/18 08:00 General: cooperative Nutritional Appearance: average body habitus Orientation: alert Limitations: altered mental status - RUE Right Upper Extremity Comments: Erythema and swelling to DIP joint of right index finger, improved from yesterday. Wrist swelling and erythema almost completely resolved. Orthopedic Assessment and Plan (1) Right wrist pain Status: Acute Assessment and Plan: Much improved. Will continue ibuprofen. Hospital Course Summary Disclaimer: The visit summary below is not to be considered part of the above Progress Note. Hospital Course: 03/04/18 Agree with admission to [facility]. Previous imaging studies were reviewed. No acute fracture of right wrist over area of tenderness to distal radius. HTN - HCTZ was discontinued while on acute. Monitor BP and may consider restarting a different agent to minimize risk for dehydration, if BP are consistently elevated. DM2 - Metformin 500 mg BID and Amaryl 2 mg daily were discontinued while on acute. Monitor sugars and may restart Metformin and monitor response. Vit B12 low-normal and methylmalonic acid is pending. 03/04/18 Psych: Start Depakote DR 250mg PO daily at dinnertime to target HS agitation. 03/05/18 Psych: Continue Depakote DR as above as patient did well last night. Will also order Vitamin B12 1000mg IM x 3 days. 03/06/18 psych note- Continue current care
--- NOTE | 2018-03-07 13:50 | Neuropsych Progress Note ---
[facility] Subjective Date: 03/07/18 - Sujective/Severity of Illness Medications: Acetaminophen (Tylenol) 325 - 650 mg PO Q5H PRN PRN Reason: Discomfort Last Admin: 03/05/18 20:28 Dose: 650 mg Aspirin (Ecotrin) 81 mg PO HS [facility] Last Admin: 03/06/18 20:17 Dose: 81 mg Cyanocobalamin (Vit. B-12) 1,000 mcg PO DAILY [facility] Last Admin: 03/07/18 10:19 Dose: 1,000 mcg Cyanocobalamin (Vit. B-12) 1,000 mcg IM DAILY [facility] Stop: 03/08/18 09:01 Last Admin: 03/07/18 10:19 Dose: 1,000 mcg Dextrose (D50%W) 20 ml IVP PRN PRN PRN Reason: Hypoglycemia Divalproex Sodium (Depakote Sprinkle) 250 mg PO 18 [facility] Last Admin: 03/06/18 17:28 Dose: 250 mg Finasteride (Proscar) 5 mg PO [facility] Last Admin: 03/06/18 20:16 Dose: 5 mg Glucose (Glutose 15) 37.5 gm PO PRN PRN PRN Reason: Hypoglycemia Ibuprofen (Motrin) 600 mg PO Q8H PRN PRN Reason: Pain Last Admin: 03/06/18 20:15 Dose: 600 mg Senna/Docusate Sodium (Senna Plus Tablet) 1 tab PO BID PRN PRN Reason: Constipation Sodium Chloride (Iv Flush) 10 - 80 ml IVF PRN PRN PRN Reason: Flushing Subjective: Pt seen and chart examined. Nursing reports pt is doing well. Sleeping well and has a good appetite. No behaviors noted. On face to face the pt is very pleasant but confused. He denies any pain. Tolerating meds. Voices no concerns at this time Start Time: 10:45 Stop Time: 11:00 Mental Status Exam Vitals: Last Vital Signs Temp 96.8 F 03/07/18 08:00 Pulse 67 03/07/18 08:00 Resp 16 03/07/18 08:00 BP 158/72 H 03/07/18 08:00 Pulse Ox 97 03/07/18 08:00 Height: 1.6 m Weight: 60.1 kg - Mental Status Exam Muscle Strength/Tone: Weak Dressing: Casual Grooming: Disheveled Attitude: Cooperative Motor Activity: Retardation Eye Contact: Good Speech: Slowed Volume: Soft Rhythm: Paucity of Language Orientation: Disoriented to time, Disoriented to place, Disoriented to situation , Oriented to person Mood: Neutral Rate of Thoughts: Delayed Thought Organization: [place], Confused Associations: Illogical Abstract Reasoning: Impaired, concrete Computation: Poor Computation Thought Content: Other (Poverty of thought) Perception/Psychotic: Perception Normal Language: Naming Impaired Fund of Knowledge: Poor fund of knowledge Memory: Poor-immediate, Poor-recent, Poor-remote Suicidal Ideation: None Homicidal Ideation: None Insight: Impaired Judgement: Impaired Impulse Control: Fair - Laboratory Laboratory Results - last 24 hr 03/06/18 03/06/18 03/07/18 14:14 20:14 05:26 Glucometer 277 221 128 Assessment and Plan (1) Major neurocognitive disorder Problem details: Moderate, etiology unknown at this point, with behavioral disturbance Current visit: Yes Status: Acute Hospital Course Summary Disclaimer: The visit summary below is not to be considered part of the above Progress Note. Hospital Course: 03/04/18 Agree with admission to [facility]. Previous imaging studies were reviewed. No acute fracture of right wrist over area of tenderness to distal radius. HTN - HCTZ was discontinued while on acute. Monitor BP and may consider restarting a different agent to minimize risk for dehydration, if BP are consistently elevated. DM2 - Metformin 500 mg BID and Amaryl 2 mg daily were discontinued while on acute. Monitor sugars and may restart Metformin and monitor response. Vit B12 low-normal and methylmalonic acid is pending. 03/04/18 Psych: Start Depakote DR 250mg PO daily at dinnertime to target HS agitation. 03/05/18 Psych: Continue Depakote DR as above as patient did well last night. Will also order Vitamin B12 1000mg IM x 3 days. 03/06/18 psych note- Continue current care 03/07/18 Psych note- Continue current care
[2018-03-07] MEDS ORDERED: LORazepam INTENSOL 1mg/0.5ml ORAL LIQUID PO PRN (16:04)
[2018-03-07] MEDS ORDERED: LORazepam 0.5 MG TABLET PO PRN (16:04)
[2018-03-07] MEDS ORDERED: HALOPERIDOL 5 MG/ML INJECTION IM PRN (16:12)
[2018-03-07] MEDS ORDERED: HALOPERIDOL 0.5 MG TABLET PO PRN (16:12)
[2018-03-07] MEDS: DIVALPROEX SPRINKLE 125 MG CAPSULE PO SCH (16:59)
[2018-03-07] MEDS: ASPIRIN *EC* 81 MG TABLET PO SCH (22:05)
[2018-03-07] MEDS: FINASTERIDE 5 MG TABLET PO SCH (22:16)
--- NOTE | 2018-03-08 08:52 | Neuropsych Progress Note ---
[facility] Subjective Date: 03/09/18 - Sujective/Severity of Illness Medications: Acetaminophen (Tylenol) 325 - 650 mg PO Q5H PRN PRN Reason: Discomfort Last Admin: 03/05/18 20:28 Dose: 650 mg Aspirin (Ecotrin) 81 mg PO HS [facility] Last Admin: 03/07/18 22:05 Dose: Not Given Cyanocobalamin (Vit. B-12) 1,000 mcg PO DAILY [facility] Last Admin: 03/07/18 10:19 Dose: 1,000 mcg Cyanocobalamin (Vit. B-12) 1,000 mcg IM DAILY [facility] Stop: 03/08/18 09:01 Last Admin: 03/07/18 10:19 Dose: 1,000 mcg Dextrose (D50%W) 20 ml IVP PRN PRN PRN Reason: Hypoglycemia Divalproex Sodium (Depakote Sprinkle) 250 mg PO 18 [facility] Last Admin: 03/07/18 16:59 Dose: 250 mg Finasteride (Proscar) 5 mg PO [facility] Last Admin: 03/07/18 22:16 Dose: Not Given Glucose (Glutose 15) 37.5 gm PO PRN PRN PRN Reason: Hypoglycemia Haloperidol (Haldol) 0.5 mg PO Q6H PRN Haloperidol Lactate (Haldol) 0.5 mg IM Q6H PRN Ibuprofen (Motrin) 600 mg PO Q8H PRN PRN Reason: Pain Last Admin: 03/06/18 20:15 Dose: 600 mg Lorazepam (Ativan) 0.5 mg PO Q6H PRN Lorazepam (Ativan Inj) 0.5 mg IM Q6H PRN Last Admin: 03/07/18 16:30 Dose: 0.5 mg Lorazepam (Ativan Intensol) 0.5 mg PO Q6H PRN Metformin HCl (Glucophage) 500 mg PO BIDWM [facility] Senna/Docusate Sodium (Senna Plus Tablet) 1 tab PO BID PRN PRN Reason: Constipation Sodium Chloride (Iv Flush) 10 - 80 ml IVF PRN PRN PRN Reason: Flushing Subjective: Patient seen and chart reviewed. Case discussed with treatment team. Patient is sleeping at time of rounds. Patient required IM medication for agitation/aggression yesterday and thus will file MHP. Nursing staff report patient was given Ativan PRN IM at 1630 yesterday and was sleeping because of this, so did not get dinner Depakote. Patient has otherwise been adherent with medications. Patient slept 7.25 hours overnight. VSS. Patient is eating well. Psychotropic PRNs required in the past 24 hours: as above. Start Time: 09:20 Stop Time: 09:40 Mental Status Exam Vitals: Last Vital Signs Temp 96.4 F L 03/07/18 20:19 Pulse 86 03/07/18 20:19 Resp 18 03/07/18 20:19 BP 129/72 03/07/18 20:19 Pulse Ox 99 03/07/18 20:19 Height: 1.6 m Weight: 60.1 kg - Mental Status Exam Muscle Strength/Tone: Weak Dressing: Casual Grooming: Disheveled Attitude: Cooperative Motor Activity: Retardation Eye Contact: Good Speech: Slowed Volume: Soft Rhythm: Paucity of Language Sensory: Other (asleep at time of rounds) Orientation: Disoriented to time, Disoriented to place, Disoriented to situation , Oriented to person Mood: Neutral, Other (occasionally labile on unit) Rate of Thoughts: Delayed Thought Organization: [place], Confused Associations: Illogical Abstract Reasoning: Impaired, concrete Computation: Poor Computation Thought Content: Other (Poverty of thought) Perception/Psychotic: Perception Normal Language: Naming Impaired Fund of Knowledge: Poor fund of knowledge Memory: Poor-immediate, Poor-recent, Poor-remote Suicidal Ideation: None Homicidal Ideation: None Insight: Impaired Judgement: Impaired Impulse Control: Poor - Laboratory Laboratory Results - last 24 hr 03/07/18 03/07/18 03/07/18 11:43 14:30 19:52 Glucometer 284 222 227 Hemoglobin A1c 03/08/18 07:27 Glucometer Hemoglobin A1c 7.7 H Assessment and Plan (1) Major neurocognitive disorder Problem details: Moderate, etiology unknown at this point, with behavioral disturbance Current visit: Yes Status: Acute Will continue current care, file MHP as patient has now received medications against his will for aggression. Hospital Course Summary Disclaimer: The visit summary below is not to be considered part of the above Progress Note. Hospital Course: 03/04/18 Agree with admission to [facility]. Previous imaging studies were reviewed. No acute fracture of right wrist over area of tenderness to distal radius. HTN - HCTZ was discontinued while on acute. Monitor BP and may consider restarting a different agent to minimize risk for dehydration, if BP are consistently elevated. DM2 - Metformin 500 mg BID and Amaryl 2 mg daily were discontinued while on acute. Monitor sugars and may restart Metformin and monitor response. Vit B12 low-normal and methylmalonic acid is pending. 03/04/18 Psych: Start Depakote DR 250mg PO daily at dinnertime to target HS agitation. 03/05/18 Psych: Continue Depakote DR as above as patient did well last night. Will also order Vitamin B12 1000mg IM x 3 days. 03/06/18 psych note- Continue current care 03/07/18 Psych note- Continue current care 03/08/18 Psych: Will continue current care, file MHP as patient has now received medications against his will for aggression. 03/08/18: Homocysteine and MMA levels were WNL. Hgb A1c 7.7%. Several glucose readings >200. Restarted Metformin 500 mg BID on - monitor response. Pt also used to take Amaryl 2 mg daily at home. Right wrist/hand inflammation, suspect gout - improving after 1-time dose of colchicine. Continue ibuprofen. Appreciate orthopedic's assistance. Start amlodipine 5 mg daily for HTN.
[2018-03-08] MEDS: METFORMIN 500 MG TABLET PO SCH ×2 (09:53→17:44)
[2018-03-08] MEDS: CYANOCOBALAMIN (B-12) 500mcg TABLET PO SCH (09:54)
[2018-03-08] MEDS: CYANOCOBALAMIN (B-12) 1,000mcg/ml INJECTION IM SCH (09:54)
--- NOTE | 2018-03-08 15:20 | Orthopedic Progress Note ---
Date: Date: 03/08/18 Time: 151 Subjective/Severity of Illness: Right wrist pain continues to improve. Reports tenderness in right index DIP, but this overall has improved as well. No other concerns Exam - Constitutional Vital Signs: Temperature 97.3 F 03/08/18 08:00 Pulse Rate 76 03/08/18 08:00 Respiratory Rate 16 03/08/18 08:00 Blood Pressure 146/71 H 03/08/18 08:00 Pulse Oximetry 99 03/08/18 08:00 General: cooperative Nutritional Appearance: average body habitus Orientation: alert Limitations: altered mental status - RUE Right Upper Extremity Comments: mild Erythema and edema over right index DIP - Labs Abnormal lab results 03/08/18 Range/Units 07:27 Hemoglobin A1c 7.7 H (4.0-5.7) % Orthopedic Assessment and Plan (1) Right wrist pain Status: Acute Assessment and Plan: Continues to improve. Will continue ibuprofen. After acute flare could consider starting Allopurinol. Hospital Course Summary Disclaimer: The visit summary below is not to be considered part of the above Progress Note. Hospital Course: 03/04/18 Agree with admission to [facility]. Previous imaging studies were reviewed. No acute fracture of right wrist over area of tenderness to distal radius. HTN - HCTZ was discontinued while on acute. Monitor BP and may consider restarting a different agent to minimize risk for dehydration, if BP are consistently elevated. DM2 - Metformin 500 mg BID and Amaryl 2 mg daily were discontinued while on acute. Monitor sugars and may restart Metformin and monitor response. Vit B12 low-normal and methylmalonic acid is pending. 03/04/18 Psych: Start Depakote DR 250mg PO daily at dinnertime to target HS agitation. 03/05/18 Psych: Continue Depakote DR as above as patient did well last night. Will also order Vitamin B12 1000mg IM x 3 days. 03/06/18 psych note- Continue current care 03/07/18 Psych note- Continue current care
[2018-03-08] MEDS: DIVALPROEX SPRINKLE 125 MG CAPSULE PO SCH (17:28)
--- NOTE | 2018-03-08 18:43 | Progress Note ---
- Date 03/08/18 Subjective: Note: Patient was evaluated on 03/08/18 Devaughn was in the dayroom, sitting at a table alone. He was pleasantly confused though reportedly occasionally becomes argumentative and aggressive. He denied any complaints. Nursing staff report that he's been sleeping well. They also note ongoing improvement to right hand/finger. Objective Vital signs: Temperature 97.3 F 03/08/18 08:00 Pulse Rate 76 03/08/18 08:00 Respiratory Rate 16 03/08/18 08:00 Blood Pressure 146/71 H 03/08/18 08:00 Pulse Oximetry 99 03/08/18 08:00 Height/Weight/BMI: Height 1.6 m Weight 60.1 kg Body Mass Index 23.4 - Constitutional Present: no acute distress, well nourished, well developed - Routine HEENT Exam Head: Present: normocephalic Eye: Present: PERRL. Absent: conjunctival icterus, scleral injection - Routine Respiratory Exam Present: CTA bilaterally - Routine Cardiovascular Exam Present: RRR, S1, S2 - Routine Abdominal Exam Present: soft, normoactive bowel sounds, non distended, non tender - Routine Extremities Exam Present: no edema - Routine Musculoskeletal Exam Musculoskeletal: Present: other (right index finger swollen and erythematous. right wrist nontender.) - Routine Skin Exam Present: intact, dry, warm - Routine Neurological Exam Present: alert, moving all extremities, normal speech. Absent: facial asymmetry - Routine Psychiatric Exam Present: cooperative Assessment and Plan (1) Progressive dementia with uncertain etiology Current visit: No Status: Acute Assessment and Plan: ASSESSMENT Alzheimer's dementia Type 2 diabetes mellitus Hypertension Presumed BPH OA Unequal pupils, likely secondary to cataract surgery Mild normocytic anemia; Low Vitamin B12 PLAN Homocysteine and MMA levels were WNL. Hgb A1c 7.7%. Several glucose readings >200. Restarted Metformin 500 mg BID on - monitor response. Pt also used to take Amaryl 2 mg daily at home. Right wrist/hand inflammation, suspect gout - improving after 1-time dose of colchicine. Continue ibuprofen. Appreciate orthopedic's assistance. Start amlodipine 5 mg daily for HTN. Repeat CBC, BMP in am. Psych notes reviewed. Resuscitation Status: Full Code - Physician Narrative Narrative: Date: 03/08/18 Time: 1842 Hospital Course Summary Disclaimer: The visit summary below is not to be considered part of the above Progress Note. Hospital Course: 03/04/18 Agree with admission to [facility]. Previous imaging studies were reviewed. No acute fracture of right wrist over area of tenderness to distal radius. HTN - HCTZ was discontinued while on acute. Monitor BP and may consider restarting a different agent to minimize risk for dehydration, if BP are consistently elevated. DM2 - Metformin 500 mg BID and Amaryl 2 mg daily were discontinued while on acute. Monitor sugars and may restart Metformin and monitor response. Vit B12 low-normal and methylmalonic acid is pending. 03/04/18 Psych: Start Depakote DR 250mg PO daily at dinnertime to target HS agitation. 03/05/18 Psych: Continue Depakote DR as above as patient did well last night. Will also order Vitamin B12 1000mg IM x 3 days. 03/06/18 psych note- Continue current care 03/07/18 Psych note- Continue current care 03/08/18 Homocysteine and MMA levels were WNL. Hgb A1c 7.7%. Several glucose readings >200. Restarted Metformin 500 mg BID on - monitor response. Pt also used to take Amaryl 2 mg daily at home. Right wrist/hand inflammation, suspect gout - improving after 1-time dose of colchicine. Continue ibuprofen. Appreciate orthopedic's assistance. Start amlodipine 5 mg daily for HTN.
[2018-03-08] MEDS: FINASTERIDE 5 MG TABLET PO SCH (20:02)
[2018-03-08] MEDS: ASPIRIN *EC* 81 MG TABLET PO SCH (20:03)
[2018-03-09] MEDS: METFORMIN 500 MG TABLET PO SCH ×2 (08:48→17:33)
[2018-03-09] MEDS: CYANOCOBALAMIN (B-12) 500mcg TABLET PO SCH (08:48)
[2018-03-09] MEDS: AMLODIPINE 5 MG TABLET PO SCH (11:28)
--- NOTE | 2018-03-09 14:45 | Neuropsych Progress Note ---
[facility] Subjective Date: 03/09/18 - Sujective/Severity of Illness Medications: Acetaminophen (Tylenol) 325 - 650 mg PO Q5H PRN PRN Reason: Discomfort Last Admin: 03/05/18 20:28 Dose: 650 mg Amlodipine Besylate (Norvasc) 5 mg PO DAILY [facility] Last Admin: 03/09/18 11:28 Dose: 5 mg Aspirin (Ecotrin) 81 mg PO HS [facility] Last Admin: 03/08/18 20:03 Dose: 81 mg Cyanocobalamin (Vit. B-12) 1,000 mcg PO DAILY [facility] Last Admin: 03/09/18 08:48 Dose: 1,000 mcg Dextrose (D50%W) 20 ml IVP PRN PRN PRN Reason: Hypoglycemia Divalproex Sodium (Depakote Sprinkle) 250 mg PO 18 [facility] Last Admin: 03/08/18 17:28 Dose: 250 mg Finasteride (Proscar) 5 mg PO HS [facility] Last Admin: 03/08/18 20:02 Dose: 5 mg Glucose (Glutose 15) 37.5 gm PO PRN PRN PRN Reason: Hypoglycemia Haloperidol (Haldol) 0.5 mg PO Q6H PRN Haloperidol Lactate (Haldol) 0.5 mg IM Q6H PRN Ibuprofen (Motrin) 600 mg PO Q8H PRN PRN Reason: Pain Last Admin: 03/06/18 20:15 Dose: 600 mg Lorazepam (Ativan) 0.5 mg PO Q6H PRN Lorazepam (Ativan Inj) 0.5 mg IM Q6H PRN Last Admin: 03/07/18 16:30 Dose: 0.5 mg Lorazepam (Ativan Intensol) 0.5 mg PO Q6H PRN Metformin HCl (Glucophage) 500 mg PO BIDWM [facility] Last Admin: 03/09/18 08:48 Dose: 500 mg Senna/Docusate Sodium (Senna Plus Tablet) 1 tab PO BID PRN PRN Reason: Constipation Sodium Chloride (Iv Flush) 10 - 80 ml IVF PRN PRN PRN Reason: Flushing Subjective: Patient seen and chart reviewed. Case discussed with treatment team. Patient is pleasantly confused at time of rounds, with poverty of thought. He reports that his mood is good and denies any physical complaints. Nursing staff report patient is calm/coperative at times and can become easily agitated at others, cussing or becoming agitated easily. He seems to calm with time in his room. Patient has been adherent with medications. Patient slept 7 hours overnight. VSS. Patient is eating well. Psychotropic PRNs required in the past 24 hours: none. Start Time: 09:00 Stop Time: 09:20 Mental Status Exam Vitals: Last Vital Signs Temp 97.1 F 03/09/18 08:00 Pulse 75 03/09/18 08:00 Resp 16 03/09/18 08:00 BP 157/85 H 03/09/18 08:00 Pulse Ox 98 03/09/18 08:00 Height: 1.6 m Weight: 60.1 kg - Mental Status Exam Muscle Strength/Tone: Weak Dressing: Casual Grooming: Disheveled Attitude: Cooperative Motor Activity: Retardation Eye Contact: Good Speech: Slowed Volume: Soft Rhythm: Paucity of Language Sensory: Alert Orientation: Disoriented to time, Disoriented to place, Disoriented to situation , Oriented to person Mood: Neutral, Other (occasionally labile on unit) Affect: Blunted Rate of Thoughts: Delayed Thought Organization: [place], Confused Associations: Illogical Abstract Reasoning: Impaired, concrete Computation: Poor Computation Thought Content: Other (Poverty of thought) Perception/Psychotic: Perception Normal Language: Naming Impaired Fund of Knowledge: Poor fund of knowledge Memory: Poor-immediate, Poor-recent, Poor-remote Suicidal Ideation: None Homicidal Ideation: None Insight: Impaired Judgement: Impaired Impulse Control: Poor - Laboratory Laboratory Results - last 24 hr 03/08/18 03/08/18 03/09/18 14:39 21:05 06:18 Glucometer 232 170 122 03/09/18 10:19 Glucometer 277 Assessment and Plan (1) Major neurocognitive disorder Problem details: Moderate, etiology unknown at this point, with behavioral disturbance Current visit: Yes Status: Acute Have filed MHP and requested emergency guardianship. Will add Depakote 125mg PO daily in AM and monitor response. May need to switch to antipsychotic instead. Hospital Course Summary Disclaimer: The visit summary below is not to be considered part of the above Progress Note. Hospital Course: 03/04/18 Agree with admission to [facility]. Previous imaging studies were reviewed. No acute fracture of right wrist over area of tenderness to distal radius. HTN - HCTZ was discontinued while on acute. Monitor BP and may consider restarting a different agent to minimize risk for dehydration, if BP are consistently elevated. DM2 - Metformin 500 mg BID and Amaryl 2 mg daily were discontinued while on acute. Monitor sugars and may restart Metformin and monitor response. Vit B12 low-normal and methylmalonic acid is pending. 03/04/18 Psych: Start Depakote DR 250mg PO daily at dinnertime to target HS agitation. 03/05/18 Psych: Continue Depakote DR as above as patient did well last night. Will also order Vitamin B12 1000mg IM x 3 days. 03/06/18 psych note- Continue current care 03/07/18 Psych note- Continue current care 03/08/18 Psych: Will continue current care, file MHP as patient has now received medications against his will for aggression. 03/08/18: Homocysteine and MMA levels were WNL. Hgb A1c 7.7%. Several glucose readings >200. Restarted Metformin 500 mg BID on - monitor response. Pt also used to take Amaryl 2 mg daily at home. Right wrist/hand inflammation, suspect gout - improving after 1-time dose of colchicine. Continue ibuprofen. Appreciate orthopedic's assistance. Start amlodipine 5 mg daily for HTN. 03/09/18 Psych: Have filed MHP and requested emergency guardianship. Will add Depakote 125mg PO daily in AM and monitor response. May need to switch to antipsychotic instead.
[2018-03-09] MEDS: DIVALPROEX SPRINKLE 125 MG CAPSULE PO SCH (17:29)
[2018-03-09] MEDS: FINASTERIDE 5 MG TABLET PO SCH (21:30)
[2018-03-09] MEDS: ASPIRIN *EC* 81 MG TABLET PO SCH (21:30)
[2018-03-10] MEDS ORDERED: DIVALPROEX SPRINKLE 125 MG CAPSULE PO SCH (09:00)
--- NOTE | 2018-03-10 09:28 | Neuropsych Progress Note ---
[facility] Subjective Date: 03/11/18 - Sujective/Severity of Illness Medications: Acetaminophen (Tylenol) 325 - 650 mg PO Q5H PRN PRN Reason: Discomfort Last Admin: 03/05/18 20:28 Dose: 650 mg Amlodipine Besylate (Norvasc) 5 mg PO DAILY [facility] Last Admin: 03/09/18 11:28 Dose: 5 mg Aspirin (Ecotrin) 81 mg PO HS [facility] Last Admin: 03/09/18 21:30 Dose: 81 mg Cyanocobalamin (Vit. B-12) 1,000 mcg PO DAILY [facility] Last Admin: 03/09/18 08:48 Dose: 1,000 mcg Dextrose (D50%W) 20 ml IVP PRN PRN PRN Reason: Hypoglycemia Divalproex Sodium (Depakote Sprinkle) 250 mg PO BID [facility] Finasteride (Proscar) 5 mg PO HS [facility] Last Admin: 03/09/18 21:30 Dose: 5 mg Glucose (Glutose 15) 37.5 gm PO PRN PRN PRN Reason: Hypoglycemia Haloperidol (Haldol) 0.5 mg PO Q6H PRN Haloperidol Lactate (Haldol) 0.5 mg IM Q6H PRN Ibuprofen (Motrin) 600 mg PO Q8H PRN PRN Reason: Pain Last Admin: 03/06/18 20:15 Dose: 600 mg Lorazepam (Ativan) 0.5 mg PO Q6H PRN Lorazepam (Ativan Inj) 0.5 mg IM Q6H PRN Last Admin: 03/09/18 15:45 Dose: 0.5 mg Lorazepam (Ativan Intensol) 0.5 mg PO Q6H PRN Metformin HCl (Glucophage) 500 mg PO BIDWM [facility] Last Admin: 03/09/18 17:33 Dose: 500 mg Senna/Docusate Sodium (Senna Plus Tablet) 1 tab PO BID PRN PRN Reason: Constipation Sodium Chloride (Iv Flush) 10 - 80 ml IVF PRN PRN PRN Reason: Flushing Subjective: Patient seen and chart reviewed. Case discussed with treatment team. Patient is lying in bed and curses on approach, though he has poverty of thought and this is not necessarily intentional - just out of frustration/ irritability. Nursing staff report patient had intermittent mood lability through day yesterday, at one point yelling and throwing things at staff. He seemed to become more confused/upset in the evening and tried to kick the door, was yelling at staff. Patient has been adherent with medications. Patient slept 8.75 hours overnight. VSS. Patient is eating well. Psychotropic PRNs required in the past 24 hours: Ativan 0.5mg IM x1. Court hearing was held via phone yesterday and patient agreed to further treatment at [facility]. Start Time: 10:00 Stop Time: 10:20 Mental Status Exam Vitals: Last Vital Signs Temp 97.4 F 03/09/18 18:09 Pulse 74 03/09/18 18:09 Resp 16 03/09/18 18:09 BP 154/72 H 03/09/18 18:09 Pulse Ox 99 03/09/18 18:09 Height: 1.6 m Weight: 60.1 kg - Mental Status Exam Muscle Strength/Tone: Weak Dressing: Casual Grooming: Disheveled Attitude: Cooperative (varies on unit) Motor Activity: Retardation Eye Contact: Good Speech: Slowed Volume: Soft Rhythm: Paucity of Language Orientation: Disoriented to time, Disoriented to place, Disoriented to situation , Oriented to person Mood: Irritable, Other (occasionally labile on unit) Rate of Thoughts: Delayed Thought Organization: [place], Confused Associations: Illogical Abstract Reasoning: Impaired, concrete Computation: Poor Computation Thought Content: Other (Poverty of thought) Perception/Psychotic: Perception Normal Language: Naming Impaired Fund of Knowledge: Poor fund of knowledge Memory: Poor-immediate, Poor-recent, Poor-remote Suicidal Ideation: None Homicidal Ideation: None Insight: Impaired Judgement: Impaired Impulse Control: Poor - Laboratory Result Diagrams: 03/10/18 06:40 03/11/18 06:47 Laboratory Results - last 24 hr 03/09/18 03/09/18 03/09/18 10:19 15:18 23:02 WBC RBC Hgb Hct MCV MCH MCHC RDW Std Deviation Plt Count MPV Immature Gran % (Auto) Neut % (Auto) Lymph % (Auto) [place] % (Auto) Eos % (Auto) Baso % (Auto) Neut # (Auto) Lymph # (Auto) [place] # (Auto) Eos # (Auto) Baso # (Auto) Abs Immat Gran (auto) Turbidity Sodium Potassium Chloride Carbon Dioxide Anion Gap BUN Creatinine GFR Calculation BUN/Creatinine Ratio Glucose Glucometer 277 132 148 Calculated Osmolality Calcium Icterus Index Specimen Hemolysis 03/10/18 03/10/18 06:40 06:40 WBC 5.3 RBC 4.00 L Hgb 11.6 L Hct 35.9 L MCV 89.8 MCH 29.0 MCHC 32.3 RDW Std Deviation 41.7 Plt Count 316 MPV 10.0 Immature Gran % (Auto) 0.2 Neut % (Auto) 44.8 Lymph % (Auto) 43.2 [place] % (Auto) 7.8 Eos % (Auto) 3.2 Baso % (Auto) 0.8 Neut # (Auto) 2.4 Lymph # (Auto) 2.3 [place] # (Auto) 0.4 Eos # (Auto) 0.2 Baso # (Auto) 0.0 Abs Immat Gran (auto) 0.01 Turbidity < 20 Sodium 143 Potassium 5.3 H Chloride 104 Carbon Dioxide 29 Anion Gap 10 BUN 26.0 H Creatinine 1.2 GFR Calculation 58 BUN/Creatinine Ratio 22 Glucose 132 H Glucometer Calculated Osmolality 282 H Calcium 9.3 Icterus Index < 2 Specimen Hemolysis 46 H Assessment and Plan (1) Major neurocognitive disorder Problem details: Moderate, etiology unknown at this point, with behavioral disturbance Current visit: Yes Status: Acute Will increase Depakote to 250mg PO BID and monitor response. May still need antipsychotic for aggression. Hospital Course Summary Disclaimer: The visit summary below is not to be considered part of the above Progress Note. Hospital Course: 03/04/18 Agree with admission to [facility]. Previous imaging studies were reviewed. No acute fracture of right wrist over area of tenderness to distal radius. HTN - HCTZ was discontinued while on acute. Monitor BP and may consider restarting a different agent to minimize risk for dehydration, if BP are consistently elevated. DM2 - Metformin 500 mg BID and Amaryl 2 mg daily were discontinued while on acute. Monitor sugars and may restart Metformin and monitor response. Vit B12 low-normal and methylmalonic acid is pending. 03/04/18 Psych: Start Depakote DR 250mg PO daily at dinnertime to target HS agitation. 03/05/18 Psych: Continue Depakote DR as above as patient did well last night. Will also order Vitamin B12 1000mg IM x 3 days. 03/06/18 psych note- Continue current care 03/07/18 Psych note- Continue current care 03/08/18 Psych: Will continue current care, file MHP as patient has now received medications against his will for aggression. 03/08/18: Homocysteine and MMA levels were WNL. Hgb A1c 7.7%. Several glucose readings >200. Restarted Metformin 500 mg BID on - monitor response. Pt also used to take Amaryl 2 mg daily at home. Right wrist/hand inflammation, suspect gout - improving after 1-time dose of colchicine. Continue ibuprofen. Appreciate orthopedic's assistance. Start amlodipine 5 mg daily for HTN. 03/09/18 Psych: Have filed MHP and requested emergency guardianship. Will increase Depakote to 250mg PO BID and monitor response. May need to switch to antipsychotic instead. 03/10/18 Psych: Continue Depakote as above; may still need antipsychotic for aggression.
[2018-03-10] MEDS: CYANOCOBALAMIN (B-12) 500mcg TABLET PO SCH (11:20)
[2018-03-10] MEDS: METFORMIN 500 MG TABLET PO SCH ×2 (11:20→17:35)
[2018-03-10] MEDS: AMLODIPINE 5 MG TABLET PO SCH (11:20)
[2018-03-10] MEDS: ASPIRIN *EC* 81 MG TABLET PO SCH (20:17)
[2018-03-10] MEDS: FINASTERIDE 5 MG TABLET PO SCH (20:17)
[2018-03-10] MEDS: DIVALPROEX SPRINKLE 125 MG CAPSULE PO SCH (20:17)
[2018-03-11] MEDS: AMLODIPINE 5 MG TABLET PO SCH (10:47)
[2018-03-11] MEDS: DIVALPROEX SPRINKLE 125 MG CAPSULE PO SCH ×2 (10:47→20:10)
[2018-03-11] MEDS: CYANOCOBALAMIN (B-12) 500mcg TABLET PO SCH (10:47)
[2018-03-11] MEDS: METFORMIN 500 MG TABLET PO SCH ×2 (10:47→17:08)
--- NOTE | 2018-03-11 13:50 | Neuropsych Progress Note ---
[facility] Subjective Date: 03/11/18 - Sujective/Severity of Illness Medications: Acetaminophen (Tylenol) 325 - 650 mg PO Q5H PRN PRN Reason: Discomfort Last Admin: 03/05/18 20:28 Dose: 650 mg Amlodipine Besylate (Norvasc) 5 mg PO DAILY [facility] Last Admin: 03/11/18 10:47 Dose: 5 mg Aspirin (Ecotrin) 81 mg PO HS [facility] Last Admin: 03/10/18 20:17 Dose: 81 mg Cyanocobalamin (Vit. B-12) 1,000 mcg PO DAILY [facility] Last Admin: 03/11/18 10:47 Dose: 1,000 mcg Dextrose (D50%W) 20 ml IVP PRN PRN PRN Reason: Hypoglycemia Divalproex Sodium (Depakote Sprinkle) 250 mg PO BID [facility] Last Admin: 03/11/18 10:47 Dose: 250 mg Finasteride (Proscar) 5 mg PO HS [facility] Last Admin: 03/10/18 20:17 Dose: 5 mg Glucose (Glutose 15) 37.5 gm PO PRN PRN PRN Reason: Hypoglycemia Haloperidol (Haldol) 0.5 mg PO Q6H PRN Haloperidol Lactate (Haldol) 0.5 mg IM Q6H PRN Ibuprofen (Motrin) 600 mg PO Q8H PRN PRN Reason: Pain Last Admin: 03/06/18 20:15 Dose: 600 mg Lorazepam (Ativan) 0.5 mg PO Q6H PRN Lorazepam (Ativan Inj) 0.5 mg IM Q6H PRN Last Admin: 03/09/18 15:45 Dose: 0.5 mg Lorazepam (Ativan Intensol) 0.5 mg PO Q6H PRN Metformin HCl (Glucophage) 500 mg PO BIDWM [facility] Last Admin: 03/11/18 10:47 Dose: 500 mg Senna/Docusate Sodium (Senna Plus Tablet) 1 tab PO BID PRN PRN Reason: Constipation Sodium Chloride (Iv Flush) 10 - 80 ml IVF PRN PRN PRN Reason: Flushing Subjective: Patient seen and chart reviewed. Case discussed with treatment team. Patient is sitting in dayroom on approach and chuckles inappropriately. He has poverty of speech and poverty of thought. Nursing staff report patient was agitated and physically aggressive this morning with nursing staff. Patient has been adherent with medications. Patient slept 9 hours overnight. VSS. Patient is eating well. Psychotropic PRNs required in the past 24 hours: None. Start Time: 13:00 Stop Time: 13:20 Mental Status Exam Vitals: Last Vital Signs Temp 97.6 F 03/11/18 08:00 Pulse 75 03/11/18 08:00 Resp 18 03/11/18 08:00 BP 115/69 03/11/18 08:00 Pulse Ox 98 03/11/18 08:00 Height: 1.6 m Weight: 60.1 kg - Mental Status Exam Muscle Strength/Tone: Weak Dressing: Casual Grooming: Disheveled Attitude: Cooperative (varies on unit) Motor Activity: Retardation Eye Contact: Good Speech: Slowed Volume: Soft Rhythm: Paucity of Language Orientation: Disoriented to time, Disoriented to place, Disoriented to situation , Oriented to person Mood: Neutral, Other (occasionally labile on unit) Affect: Blunted Rate of Thoughts: Delayed Thought Organization: [place], Confused Associations: Illogical Abstract Reasoning: Impaired, concrete Computation: Poor Computation Thought Content: Other (Poverty of thought) Perception/Psychotic: Perception Normal Language: Naming Impaired Fund of Knowledge: Poor fund of knowledge Memory: Poor-immediate, Poor-recent, Poor-remote Suicidal Ideation: None Homicidal Ideation: None Insight: Impaired Judgement: Impaired Impulse Control: Poor - Laboratory Result Diagrams: 03/10/18 06:40 03/11/18 06:47 Laboratory Results - last 24 hr 03/10/18 03/10/18 03/11/18 14:17 20:50 06:47 Turbidity < 20 Sodium 144 Potassium 4.1 D Chloride 103 Carbon Dioxide 27 Anion Gap 14 BUN 23.0 H Creatinine 1.3 GFR Calculation 53 BUN/Creatinine Ratio 18 Glucose 145 H Glucometer 219 157 Calculated Osmolality 284 H Calcium 9.2 Icterus Index < 2 Specimen Hemolysis < 15 03/11/18 03/11/18 06:47 11:46 Turbidity Sodium Potassium Chloride Carbon Dioxide Anion Gap BUN Creatinine GFR Calculation BUN/Creatinine Ratio Glucose Glucometer 148 201 Calculated Osmolality Calcium Icterus Index Specimen Hemolysis Assessment and Plan (1) Major neurocognitive disorder Problem details: Moderate, etiology unknown at this point, with behavioral disturbance Current visit: Yes Status: Acute Will start Risperdal 0.25mg PO BID; if antipsychotic is effective may be able to d/c Depakote. Hospital Course Summary Disclaimer: The visit summary below is not to be considered part of the above Progress Note. Hospital Course: 03/04/18 Agree with admission to [facility]. Previous imaging studies were reviewed. No acute fracture of right wrist over area of tenderness to distal radius. HTN - HCTZ was discontinued while on acute. Monitor BP and may consider restarting a different agent to minimize risk for dehydration, if BP are consistently elevated. DM2 - Metformin 500 mg BID and Amaryl 2 mg daily were discontinued while on acute. Monitor sugars and may restart Metformin and monitor response. Vit B12 low-normal and methylmalonic acid is pending. 03/04/18 Psych: Start Depakote DR 250mg PO daily at dinnertime to target HS agitation. 03/05/18 Psych: Continue Depakote DR as above as patient did well last night. Will also order Vitamin B12 1000mg IM x 3 days. 03/06/18 psych note- Continue current care 03/07/18 Psych note- Continue current care 03/08/18 Psych: Will continue current care, file MHP as patient has now received medications against his will for aggression. 03/08/18: Homocysteine and MMA levels were WNL. Hgb A1c 7.7%. Several glucose readings >200. Restarted Metformin 500 mg BID on - monitor response. Pt also used to take Amaryl 2 mg daily at home. Right wrist/hand inflammation, suspect gout - improving after 1-time dose of colchicine. Continue ibuprofen. Appreciate orthopedic's assistance. Start amlodipine 5 mg daily for HTN. 03/09/18 Psych: Have filed MHP and requested emergency guardianship. Will increase Depakote to 250mg PO BID and monitor response. May need to switch to antipsychotic instead. 03/10/18 Psych: Continue Depakote as above; may still need antipsychotic for aggression. 03/11/18 Psych: Will start Risperdal 0.25mg PO BID; if antipsychotic is effective may be able to d/c Depakote.
--- NOTE | 2018-03-11 16:39 | Progress Note ---
- Date 03/11/18 Subjective: Mr. Fallon is seen today in follow up. He is seen while resting in bed. He is awake on exam and reports that he "feels bad" but is unable to describe why. He denies any acute pain, chest pain, shortness of breath, abdominal pain, nausea, vomiting or dysuria. He expresses excitement about his upcoming meal and states that his appetite is good. Vital signs are stable. Blood pressure improved following initiation of Norvasc 5mg daily on 03/09/18. Blood sugars relatively stable following restarting metformin on 03/08/18. Hyperkalemia resolved per recent labs. He continues to have some episodes of agitation and aggressiveness per nursing. Objective Vital signs: Temperature 98.8 F 03/11/18 16:00 Pulse Rate 93 03/11/18 16:00 Respiratory Rate 16 03/11/18 16:00 Blood Pressure 136/70 03/11/18 16:00 Pulse Oximetry 100 03/11/18 16:00 Height/Weight/BMI: Height 5 ft 3 in Weight 132 lb 7.965 oz Body Mass Index 23.4 Comments: Awake, resting in bed. - Constitutional Present: no acute distress, well nourished, well developed, cooperative - Routine HEENT Exam Head: Present: normocephalic, atraumatic Eye: Present: PERRL. Absent: conjunctival icterus ENT: Present: mucous membranes moist, oropharynx clear - Routine Respiratory Exam Present: CTA bilaterally. Absent: respiratory distress, wheezes - Routine Cardiovascular Exam Present: RRR, S1, S2 - Routine Abdominal Exam Present: soft, normoactive bowel sounds, non distended, non tender - Routine Extremities Exam Present: no edema, pulses intact - Routine Back/Spine/Pelvis Exam Back/Spine: Present: full ROM. Absent: vertebral tenderness - Routine Musculoskeletal Exam Musculoskeletal: Present: no clubbing or cyanosis, moving extremities well - Routine Skin Exam Present: intact, dry, warm Comments: Afebrile - Routine Neurological Exam Present: alert, moving all extremities, hearing grossly intact, normal speech - Routine Lymphatic Exam Lymphatic: Absent: lymphedema - Routine Psychiatric Exam Present: cooperative Results - Labs CBC & Chem 7: 03/10/18 06:40 03/11/18 06:47 Assessment and Plan (1) Progressive dementia with uncertain etiology Current visit: No Status: Acute Assessment and Plan: ASSESSMENT Alzheimer's dementia Type 2 diabetes mellitus Hypertension Presumed BPH OA Unequal pupils, likely secondary to cataract surgery Mild normocytic anemia; Low Vitamin B12 PLAN - 03/11/18 Patient continues to have episodes of agitation and physical aggression. Continue psychiatric cares per Dr. Ramirez and team. Homocysteine and MMA levels were WNL. Hgb A1c 7.7%. Several glucose readings >200. Restarted Metformin 500 mg BID on with some improvement in blood sugars. Pt also used to take Amaryl 2 mg daily at home which may need to be restarted. Continue to monitor blood sugars closely. Right wrist/hand inflammation, suspect gout continues to improve after 1-time dose of colchicine. Continue ibuprofen. Appreciate orthopedic's assistance. Hyperkalemia resolved. Labs stable. Resuscitation Status: Full Code - Time spent with patient Time with patient PN: 25 minutes - Physician Narrative Physician: Jyoti Hatch MD Narrative: Date: 03/11/18 Time: 1636 Hospital Course Summary Disclaimer: The visit summary below is not to be considered part of the above Progress Note. Hospital Course: 03/04/18 Agree with admission to [facility]. Previous imaging studies were reviewed. No acute fracture of right wrist over area of tenderness to distal radius. HTN - HCTZ was discontinued while on acute. Monitor BP and may consider restarting a different agent to minimize risk for dehydration, if BP are consistently elevated. DM2 - Metformin 500 mg BID and Amaryl 2 mg daily were discontinued while on acute. Monitor sugars and may restart Metformin and monitor response. Vit B12 low-normal and methylmalonic acid is pending. 03/04/18 Psych: Start Depakote DR 250mg PO daily at dinnertime to target HS agitation. 03/05/18 Psych: Continue Depakote DR as above as patient did well last night. Will also order Vitamin B12 1000mg IM x 3 days. 03/06/18 psych note- Continue current care 03/07/18 Psych note- Continue current care 03/08/18 Psych: Will continue current care, file MHP as patient has now received medications against his will for aggression. 03/08/18: Homocysteine and MMA levels were WNL. Hgb A1c 7.7%. Several glucose readings >200. Restarted Metformin 500 mg BID on - monitor response. Pt also used to take Amaryl 2 mg daily at home. Right wrist/hand inflammation, suspect gout - improving after 1-time dose of colchicine. Continue ibuprofen. Appreciate orthopedic's assistance. Start amlodipine 5 mg daily for HTN. 03/09/18 Psych: Have filed MHP and requested emergency guardianship. Will increase Depakote to 250mg PO BID and monitor response. May need to switch to antipsychotic instead. 03/10/18 Psych: Continue Depakote as above; may still need antipsychotic for aggression. 03/11/18 Psych: Will start Risperdal 0.25mg PO BID; if antipsychotic is effective may be able to d/c Depakote. PLAN - 03/11/18 Patient continues to have episodes of agitation and physical aggression. Continue psychiatric cares per Dr. Ramirez and team. Homocysteine and MMA levels were WNL. Hgb A1c 7.7%. Several glucose readings >200. Restarted Metformin 500 mg BID on with some improvement in blood sugars. Pt also used to take Amaryl 2 mg daily at home which may need to be restarted. Continue to monitor blood sugars closely. Right wrist/hand inflammation, suspect gout continues to improve after 1-time dose of colchicine. Continue ibuprofen. Appreciate orthopedic's assistance. Hyperkalemia resolved. Labs stable.
[2018-03-11] MEDS: IBUPROFEN 600 MG TABLET PO PRN (17:09)
[2018-03-11] MEDS: FINASTERIDE 5 MG TABLET PO SCH (20:10)
[2018-03-11] MEDS: ASPIRIN *EC* 81 MG TABLET PO SCH (20:10)
[2018-03-12] MEDS: CYANOCOBALAMIN (B-12) 500mcg TABLET PO SCH (10:46)
[2018-03-12] MEDS: METFORMIN 500 MG TABLET PO SCH ×2 (10:46→17:18)
[2018-03-12] MEDS: AMLODIPINE 5 MG TABLET PO SCH (10:46)
[2018-03-12] MEDS: DIVALPROEX SPRINKLE 125 MG CAPSULE PO SCH ×2 (10:47→20:31)
--- NOTE | 2018-03-12 10:56 | Neuropsych Progress Note ---
[facility] Subjective Date: 03/12/18 - Sujective/Severity of Illness Medications: Acetaminophen (Tylenol) 325 - 650 mg PO Q5H PRN PRN Reason: Discomfort Last Admin: 03/05/18 20:28 Dose: 650 mg Amlodipine Besylate (Norvasc) 5 mg PO DAILY [facility] Last Admin: 03/12/18 10:46 Dose: 5 mg Aspirin (Ecotrin) 81 mg PO HS [facility] Last Admin: 03/11/18 20:10 Dose: 81 mg Cyanocobalamin (Vit. B-12) 1,000 mcg PO DAILY [facility] Last Admin: 03/12/18 10:46 Dose: 1,000 mcg Dextrose (D50%W) 20 ml IVP PRN PRN PRN Reason: Hypoglycemia Divalproex Sodium (Depakote Sprinkle) 250 mg PO BID [facility] Last Admin: 03/12/18 10:47 Dose: 250 mg Finasteride (Proscar) 5 mg PO HS [facility] Last Admin: 03/11/18 20:10 Dose: 5 mg Glucose (Glutose 15) 37.5 gm PO PRN PRN PRN Reason: Hypoglycemia Haloperidol (Haldol) 0.5 mg PO Q6H PRN Haloperidol Lactate (Haldol) 0.5 mg IM Q6H PRN Ibuprofen (Motrin) 600 mg PO Q8H PRN PRN Reason: Pain Last Admin: 03/11/18 17:09 Dose: 600 mg Lorazepam (Ativan) 0.5 mg PO Q6H PRN Lorazepam (Ativan Inj) 0.5 mg IM Q6H PRN Last Admin: 03/09/18 15:45 Dose: 0.5 mg Lorazepam (Ativan Intensol) 0.5 mg PO Q6H PRN Magnesium Hydroxide (Mom) 30 ml PO DAILY PRN PRN Reason: Constipation Last Admin: 03/12/18 10:47 Dose: 30 ml Metformin HCl (Glucophage) 500 mg PO BIDWM [facility] Last Admin: 03/12/18 10:46 Dose: 500 mg Risperidone (Risperdal) 0.25 mg PO [facility] Last Admin: 03/12/18 10:47 Dose: 0.25 mg Senna/Docusate Sodium (Senna Plus Tablet) 1 tab PO BID PRN PRN Reason: Constipation Last Admin: 06/22/18 10:48 Dose: 1 tab Sodium Chloride (Iv Flush) 10 - 80 ml IVF PRN PRN PRN Reason: Flushing Subjective: Patient seen and chart reviewed. Case discussed with treatment team. Patient is sitting in dayroom with and chuckles inappropriately when spoken to. He has poverty of speech and poverty of thought. Nursing staff report patient was aggressive/impulsive at bedtime last night, but then later apologized. He also upregulated after his left yesterday. Patient then slept 8.75 hours overnight and was cooperative with cares this morning. Patient has been adherent with medications. VSS. Patient is eating well. Psychotropic PRNs required in the past 24 hours: None. Start Time: 13:20 Stop Time: 13:40 Mental Status Exam Vitals: Last Vital Signs Temp 96.9 F 03/11/18 20:37 Pulse 76 03/11/18 20:37 Resp 18 03/11/18 20:37 BP 123/76 03/11/18 20:37 Pulse Ox 99 03/11/18 20:37 Height: 1.6 m Weight: 58 kg - Mental Status Exam Muscle Strength/Tone: Weak Dressing: Casual Grooming: Disheveled Attitude: Cooperative (varies on unit) Motor Activity: Retardation Eye Contact: Good Speech: Slowed Volume: Soft Rhythm: Paucity of Language Orientation: Disoriented to time, Disoriented to place, Disoriented to situation , Oriented to person Mood: Neutral, Other (occasionally labile on unit) Affect: Relaxed (during interview, mood lability decreasing overall) Rate of Thoughts: Delayed Thought Organization: [place], Confused Associations: Illogical Abstract Reasoning: Impaired, concrete Computation: Poor Computation Thought Content: Other (Poverty of thought) Perception/Psychotic: Perception Normal Language: Naming Impaired Fund of Knowledge: Poor fund of knowledge Memory: Poor-immediate, Poor-recent, Poor-remote Suicidal Ideation: None Homicidal Ideation: None Insight: Impaired Judgement: Impaired Impulse Control: Poor - Laboratory Result Diagrams: 03/10/18 06:40 03/11/18 06:47 Laboratory Results - last 24 hr 03/11/18 03/11/18 03/11/18 11:46 14:36 20:18 Glucometer 201 130 178 03/12/18 05:45 Glucometer 126 Assessment and Plan (1) Major neurocognitive disorder Problem details: Moderate, etiology unknown at this point, with behavioral disturbance Current visit: Yes Status: Acute If Risperdal seems to be effective in calming patient, plan increase to 0.5mg PO BID and taper Depakote. Hospital Course Summary Disclaimer: The visit summary below is not to be considered part of the above Progress Note. Hospital Course: 03/04/18 Agree with admission to [facility]. Previous imaging studies were reviewed. No acute fracture of right wrist over area of tenderness to distal radius. HTN - HCTZ was discontinued while on acute. Monitor BP and may consider restarting a different agent to minimize risk for dehydration, if BP are consistently elevated. DM2 - Metformin 500 mg BID and Amaryl 2 mg daily were discontinued while on acute. Monitor sugars and may restart Metformin and monitor response. Vit B12 low-normal and methylmalonic acid is pending. 03/04/18 Psych: Start Depakote DR 250mg PO daily at dinnertime to target HS agitation. 03/05/18 Psych: Continue Depakote DR as above as patient did well last night. Will also order Vitamin B12 1000mg IM x 3 days. 03/06/18 psych note- Continue current care 03/07/18 Psych note- Continue current care 03/08/18 Psych: Will continue current care, file MHP as patient has now received medications against his will for aggression. 03/08/18: Homocysteine and MMA levels were WNL. Hgb A1c 7.7%. Several glucose readings >200. Restarted Metformin 500 mg BID on - monitor response. Pt also used to take Amaryl 2 mg daily at home. Right wrist/hand inflammation, suspect gout - improving after 1-time dose of colchicine. Continue ibuprofen. Appreciate orthopedic's assistance. Start amlodipine 5 mg daily for HTN. 03/09/18 Psych: Have filed MHP and requested emergency guardianship. Will increase Depakote to 250mg PO BID and monitor response. May need to switch to antipsychotic instead. 03/10/18 Psych: Continue Depakote as above; may still need antipsychotic for aggression. 03/11/18 Psych: Will start Risperdal 0.25mg PO BID; if antipsychotic is effective may be able to d/c Depakote. PLAN - 03/11/18 Patient continues to have episodes of agitation and physical aggression. Continue psychiatric cares per Dr. Ramirez and team. Homocysteine and MMA levels were WNL. Hgb A1c 7.7%. Several glucose readings >200. Restarted Metformin 500 mg BID on with some improvement in blood sugars. Pt also used to take Amaryl 2 mg daily at home which may need to be restarted. Continue to monitor blood sugars closely. Right wrist/hand inflammation, suspect gout continues to improve after 1-time dose of colchicine. Continue ibuprofen. Appreciate orthopedic's assistance. Hyperkalemia resolved. Labs stable. 03/12/18 Psych: If Risperdal seems to be effective in calming patient, plan to increase to 0.5mg PO BID and taper Depakote.
[2018-03-12] MEDS: FINASTERIDE 5 MG TABLET PO SCH (20:31)
[2018-03-12] MEDS: ASPIRIN *EC* 81 MG TABLET PO SCH (20:31)
[2018-03-13] MEDS: CYANOCOBALAMIN (B-12) 500mcg TABLET PO SCH (08:19)
[2018-03-13] MEDS: AMLODIPINE 5 MG TABLET PO SCH (08:20)
[2018-03-13] MEDS: DIVALPROEX SPRINKLE 125 MG CAPSULE PO SCH ×2 (08:20→20:43)
[2018-03-13] MEDS: METFORMIN 500 MG TABLET PO SCH ×2 (08:20→17:29)
--- NOTE | 2018-03-13 12:13 | Neuropsych Progress Note ---
[facility] Subjective Date: 03/13/18 - Sujective/Severity of Illness Medications: Acetaminophen (Tylenol) 325 - 650 mg PO Q5H PRN PRN Reason: Discomfort Last Admin: 03/05/18 20:28 Dose: 650 mg Amlodipine Besylate (Norvasc) 5 mg PO DAILY [facility] Last Admin: 03/13/18 08:20 Dose: 5 mg Aspirin (Ecotrin) 81 mg PO HS [facility] Last Admin: 03/12/18 20:31 Dose: 81 mg Cyanocobalamin (Vit. B-12) 1,000 mcg PO DAILY [facility] Last Admin: 03/13/18 08:19 Dose: 1,000 mcg Dextrose (D50%W) 20 ml IVP PRN PRN PRN Reason: Hypoglycemia Divalproex Sodium (Depakote Sprinkle) 250 mg PO BID [facility] Last Admin: 03/13/18 08:20 Dose: 250 mg Finasteride (Proscar) 5 mg PO HS [facility] Last Admin: 03/12/18 20:31 Dose: 5 mg Glucose (Glutose 15) 37.5 gm PO PRN PRN PRN Reason: Hypoglycemia Haloperidol (Haldol) 0.5 mg PO Q6H PRN Haloperidol Lactate (Haldol) 0.5 mg IM Q6H PRN Ibuprofen (Motrin) 600 mg PO Q8H PRN PRN Reason: Pain Last Admin: 03/11/18 17:09 Dose: 600 mg Lorazepam (Ativan) 0.5 mg PO Q6H PRN Lorazepam (Ativan Inj) 0.5 mg IM Q6H PRN Last Admin: 03/09/18 15:45 Dose: 0.5 mg Lorazepam (Ativan Intensol) 0.5 mg PO Q6H PRN Last Admin: 03/13/18 11:51 Dose: 0.5 mg Magnesium Hydroxide (Mom) 30 ml PO DAILY PRN PRN Reason: Constipation Last Admin: 03/13/18 08:20 Dose: 30 ml Metformin HCl (Glucophage) 500 mg PO BIDWM [facility] Last Admin: 03/13/18 08:20 Dose: 500 mg Risperidone (Risperdal) 0.25 mg PO ,17 [facility] Last Admin: 03/13/18 08:20 Dose: 0.25 mg Senna/Docusate Sodium (Senna Plus Tablet) 1 tab PO BID PRN PRN Reason: Constipation Last Admin: 03/12/18 10:48 Dose: 1 tab Sodium Chloride (Iv Flush) 10 - 80 ml IVF PRN PRN PRN Reason: Flushing Subjective: Patient seen and chart reviewed. Nursing reports pt was angry and irritable this AM and was cursing at staff. Pt was given Ativan 0.5mg which was helpful. On face to face the pt is pleasant but confused. He states he feels "bad" but is not able to elaborate. He denies any pain and does not appear in distress. Tolerating meds Start Time: 11:15 Stop Time: 11:30 Mental Status Exam Vitals: Last Vital Signs Temp 98.0 F 03/13/18 08:00 Pulse 87 03/13/18 08:00 Resp 20 03/13/18 08:00 BP 142/69 H 03/13/18 08:00 Pulse Ox 98 03/13/18 08:00 Height: 1.6 m Weight: 58 kg - Mental Status Exam Muscle Strength/Tone: Weak Dressing: Casual Grooming: Disheveled Attitude: Cooperative (varies on unit) Motor Activity: Retardation Eye Contact: Good Speech: Slowed Volume: Soft Rhythm: Paucity of Language Orientation: Disoriented to time, Disoriented to place, Disoriented to situation , Oriented to person Mood: Neutral, Other (occasionally labile on unit) Rate of Thoughts: Delayed Thought Organization: [place], Confused Associations: Illogical Abstract Reasoning: Impaired, concrete Computation: Poor Computation Thought Content: Other (Poverty of thought) Perception/Psychotic: Perception Normal Language: Naming Impaired Fund of Knowledge: Poor fund of knowledge Memory: Poor-immediate, Poor-recent, Poor-remote Suicidal Ideation: None Homicidal Ideation: None Insight: Impaired Judgement: Impaired Impulse Control: Poor - Laboratory Result Diagrams: 03/10/18 06:40 03/11/18 06:47 Laboratory Results - last 24 hr 03/12/18 03/12/18 03/13/18 15:28 21:26 05:37 Glucometer 152 178 116 Triglycerides Cholesterol LDL Cholesterol, Calc VLDL Cholesterol HDL Cholesterol Cholesterol/HDL Ratio 03/13/18 07:30 Glucometer Triglycerides 217 H Cholesterol 159 LDL Cholesterol, Calc 82.6 VLDL Cholesterol 43.4 H HDL Cholesterol 33 L Cholesterol/HDL Ratio 4.8 Assessment and Plan (1) Major neurocognitive disorder Problem details: Moderate, etiology unknown at this point, with behavioral disturbance Current visit: Yes Status: Acute Hospital Course Summary Disclaimer: The visit summary below is not to be considered part of the above Progress Note. Hospital Course: 03/04/18 Agree with admission to [facility]. Previous imaging studies were reviewed. No acute fracture of right wrist over area of tenderness to distal radius. HTN - HCTZ was discontinued while on acute. Monitor BP and may consider restarting a different agent to minimize risk for dehydration, if BP are consistently elevated. DM2 - Metformin 500 mg BID and Amaryl 2 mg daily were discontinued while on acute. Monitor sugars and may restart Metformin and monitor response. Vit B12 low-normal and methylmalonic acid is pending. 03/04/18 Psych: Start Depakote DR 250mg PO daily at dinnertime to target HS agitation. 03/05/18 Psych: Continue Depakote DR as above as patient did well last night. Will also order Vitamin B12 1000mg IM x 3 days. 03/06/18 psych note- Continue current care 03/07/18 Psych note- Continue current care 03/08/18 Psych: Will continue current care, file MHP as patient has now received medications against his will for aggression. 03/08/18: Homocysteine and MMA levels were WNL. Hgb A1c 7.7%. Several glucose readings >200. Restarted Metformin 500 mg BID on - monitor response. Pt also used to take Amaryl 2 mg daily at home. Right wrist/hand inflammation, suspect gout - improving after 1-time dose of colchicine. Continue ibuprofen. Appreciate orthopedic's assistance. Start amlodipine 5 mg daily for HTN. 03/09/18 Psych: Have filed MHP and requested emergency guardianship. Will increase Depakote to 250mg PO BID and monitor response. May need to switch to antipsychotic instead. 03/10/18 Psych: Continue Depakote as above; may still need antipsychotic for aggression. 03/11/18 Psych: Will start Risperdal 0.25mg PO BID; if antipsychotic is effective may be able to d/c Depakote. PLAN - 03/11/18 Patient continues to have episodes of agitation and physical aggression. Continue psychiatric cares per Dr. Ramirez and team. Homocysteine and MMA levels were WNL. Hgb A1c 7.7%. Several glucose readings >200. Restarted Metformin 500 mg BID on with some improvement in blood sugars. Pt also used to take Amaryl 2 mg daily at home which may need to be restarted. Continue to monitor blood sugars closely. Right wrist/hand inflammation, suspect gout continues to improve after 1-time dose of colchicine. Continue ibuprofen. Appreciate orthopedic's assistance. Hyperkalemia resolved. Labs stable. 03/12/18 Psych: If Risperdal seems to be effective in calming patient, plan to increase to 0.5mg PO BID and taper Depakote. 03/13/18 Psych note- Continue current care
[2018-03-13] MEDS: ASPIRIN *EC* 81 MG TABLET PO SCH (20:43)
[2018-03-13] MEDS: FINASTERIDE 5 MG TABLET PO SCH (20:43)
[2018-03-14] MEDS ORDERED: BISACODYL 10 MG SUPPOSITORY RECTALLY PRN (07:41)
--- NOTE | 2018-03-14 10:56 | Neuropsych Progress Note ---
[facility] Subjective Date: 03/14/18 - Sujective/Severity of Illness Medications: Acetaminophen (Tylenol) 325 - 650 mg PO Q5H PRN PRN Reason: Discomfort Last Admin: 03/05/18 20:28 Dose: 650 mg Amlodipine Besylate (Norvasc) 5 mg PO DAILY [facility] Last Admin: 03/13/18 08:20 Dose: 5 mg Aspirin (Ecotrin) 81 mg PO HS [facility] Last Admin: 03/13/18 20:43 Dose: 81 mg Bisacodyl (Dulcolax) 10 mg RECTALLY DAILY PRN PRN Reason: Constipation Cyanocobalamin (Vit. B-12) 1,000 mcg PO DAILY [facility] Last Admin: 03/13/18 08:19 Dose: 1,000 mcg Dextrose (D50%W) 20 ml IVP PRN PRN PRN Reason: Hypoglycemia Divalproex Sodium (Depakote Sprinkle) 250 mg PO BID [facility] Last Admin: 03/13/18 20:43 Dose: 250 mg Finasteride (Proscar) 5 mg PO [facility] Last Admin: 03/13/18 20:43 Dose: 5 mg Glucose (Glutose 15) 37.5 gm PO PRN PRN PRN Reason: Hypoglycemia Haloperidol (Haldol) 0.5 mg PO Q6H PRN Haloperidol Lactate (Haldol) 0.5 mg IM Q6H PRN Ibuprofen (Motrin) 600 mg PO Q8H PRN PRN Reason: Pain Last Admin: 03/11/18 17:09 Dose: 600 mg Lorazepam (Ativan) 0.5 mg PO Q6H PRN Lorazepam (Ativan Inj) 0.5 mg IM Q6H PRN Last Admin: 03/09/18 15:45 Dose: 0.5 mg Lorazepam (Ativan Intensol) 0.5 mg PO Q6H PRN Last Admin: 03/13/18 11:51 Dose: 0.5 mg Magnesium Hydroxide (Mom) 30 ml PO DAILY PRN PRN Reason: Constipation Last Admin: 03/13/18 08:20 Dose: 30 ml Metformin HCl (Glucophage) 500 mg PO BIDWM [facility] Last Admin: 03/13/18 17:29 Dose: 500 mg Risperidone (Risperdal) 0.25 mg PO [facility] Last Admin: 03/13/18 17:29 Dose: 0.25 mg Senna/Docusate Sodium (Senna Plus Tablet) 1 tab PO BID PRN PRN Reason: Constipation Last Admin: 03/12/18 10:48 Dose: 1 tab Sodium Chloride (Iv Flush) 10 - 80 ml IVF PRN PRN PRN Reason: Flushing Subjective: Patient seen and chart reviewed. Nursing reports pt did better yesterday. Slept well and had no aggression in the evening or over night which is an improvement. On face to face the pt is pleasant but confused. He reports his mood is stable. He denies any pain. Tolerating meds. Voices no concerns Start Time: 10:45 Stop Time: 11:00 Mental Status Exam Vitals: Last Vital Signs Temp 97.2 F 03/13/18 21:36 Pulse 96 03/13/18 21:36 Resp 20 03/13/18 21:36 BP 128/87 03/13/18 21:36 Pulse Ox 98 03/13/18 21:36 Height: 1.6 m Weight: 58 kg - Mental Status Exam Muscle Strength/Tone: Weak Dressing: Casual Grooming: Disheveled Attitude: Cooperative (varies on unit) Motor Activity: Retardation Eye Contact: Good Speech: Slowed Volume: Soft Rhythm: Paucity of Language Orientation: Disoriented to time, Disoriented to place, Disoriented to situation , Oriented to person Mood: Neutral, Other (occasionally labile on unit) Rate of Thoughts: Delayed Thought Organization: [place], Confused Associations: Illogical Abstract Reasoning: Impaired, concrete Computation: Poor Computation Thought Content: Other (Poverty of thought) Perception/Psychotic: Perception Normal Language: Naming Impaired Fund of Knowledge: Poor fund of knowledge Memory: Poor-immediate, Poor-recent, Poor-remote Suicidal Ideation: None Homicidal Ideation: None Insight: Impaired Judgement: Impaired Impulse Control: Poor - Laboratory Result Diagrams: 03/10/18 06:40 03/11/18 06:47 Laboratory Results - last 24 hr 03/13/18 03/13/18 03/14/18 14:27 19:23 05:53 Glucometer 223 247 102 Assessment and Plan (1) Major neurocognitive disorder Problem details: Moderate, etiology unknown at this point, with behavioral disturbance Current visit: Yes Status: Acute Hospital Course Summary Disclaimer: The visit summary below is not to be considered part of the above Progress Note. Hospital Course: 03/04/18 Agree with admission to [facility]. Previous imaging studies were reviewed. No acute fracture of right wrist over area of tenderness to distal radius. HTN - HCTZ was discontinued while on acute. Monitor BP and may consider restarting a different agent to minimize risk for dehydration, if BP are consistently elevated. DM2 - Metformin 500 mg BID and Amaryl 2 mg daily were discontinued while on acute. Monitor sugars and may restart Metformin and monitor response. Vit B12 low-normal and methylmalonic acid is pending. 03/04/18 Psych: Start Depakote DR 250mg PO daily at dinnertime to target HS agitation. 03/05/18 Psych: Continue Depakote DR as above as patient did well last night. Will also order Vitamin B12 1000mg IM x 3 days. 03/06/18 psych note- Continue current care 03/07/18 Psych note- Continue current care 03/08/18 Psych: Will continue current care, file MHP as patient has now received medications against his will for aggression. 03/08/18: Homocysteine and MMA levels were WNL. Hgb A1c 7.7%. Several glucose readings >200. Restarted Metformin 500 mg BID on - monitor response. Pt also used to take Amaryl 2 mg daily at home. Right wrist/hand inflammation, suspect gout - improving after 1-time dose of colchicine. Continue ibuprofen. Appreciate orthopedic's assistance. Start amlodipine 5 mg daily for HTN. 03/09/18 Psych: Have filed MHP and requested emergency guardianship. Will increase Depakote to 250mg PO BID and monitor response. May need to switch to antipsychotic instead. 03/10/18 Psych: Continue Depakote as above; may still need antipsychotic for aggression. 03/11/18 Psych: Will start Risperdal 0.25mg PO BID; if antipsychotic is effective may be able to d/c Depakote. PLAN - 03/11/18 Patient continues to have episodes of agitation and physical aggression. Continue psychiatric cares per Dr. Ramirez and team. Homocysteine and MMA levels were WNL. Hgb A1c 7.7%. Several glucose readings >200. Restarted Metformin 500 mg BID on with some improvement in blood sugars. Pt also used to take Amaryl 2 mg daily at home which may need to be restarted. Continue to monitor blood sugars closely. Right wrist/hand inflammation, suspect gout continues to improve after 1-time dose of colchicine. Continue ibuprofen. Appreciate orthopedic's assistance. Hyperkalemia resolved. Labs stable. 03/12/18 Psych: If Risperdal seems to be effective in calming patient, plan to increase to 0.5mg PO BID and taper Depakote. 03/13/18 Psych note- Continue current care 03/14/18 Psych note- Pt improved. Continue current care
[2018-03-14] MEDS: CYANOCOBALAMIN (B-12) 500mcg TABLET PO SCH (12:21)
[2018-03-14] MEDS: DIVALPROEX SPRINKLE 125 MG CAPSULE PO SCH ×2 (12:21→19:27)
[2018-03-14] MEDS: METFORMIN 500 MG TABLET PO SCH ×2 (12:21→17:23)
[2018-03-14] MEDS: AMLODIPINE 5 MG TABLET PO SCH (12:21)
[2018-03-14] MEDS: ASPIRIN *EC* 81 MG TABLET PO SCH (19:27)
[2018-03-14] MEDS: FINASTERIDE 5 MG TABLET PO SCH (19:28)
[2018-03-15] MEDS: DIVALPROEX SPRINKLE 125 MG CAPSULE PO SCH ×3 (03:00→20:14)
[2018-03-15] MEDS: ASPIRIN *EC* 81 MG TABLET PO SCH ×2 (03:00→20:15)
[2018-03-15] MEDS: FINASTERIDE 5 MG TABLET PO SCH ×2 (03:01→20:15)
--- NOTE | 2018-03-15 10:45 | Neuropsych Progress Note ---
[facility] Subjective Date: 03/15/18 - Sujective/Severity of Illness Medications: Acetaminophen (Tylenol) 325 - 650 mg PO Q5H PRN PRN Reason: Discomfort Last Admin: 03/05/18 20:28 Dose: 650 mg Amlodipine Besylate (Norvasc) 5 mg PO DAILY [facility] Last Admin: 03/14/18 12:21 Dose: 5 mg Aspirin (Ecotrin) 81 mg PO HS [facility] Last Admin: 03/15/18 03:00 Dose: Not Given Bisacodyl (Dulcolax) 10 mg RECTALLY DAILY PRN PRN Reason: Constipation Last Admin: 03/14/18 12:22 Dose: 10 mg Cyanocobalamin (Vit. B-12) 1,000 mcg PO DAILY [facility] Last Admin: 03/14/18 12:21 Dose: 1,000 mcg Dextrose (D50%W) 20 ml IVP PRN PRN PRN Reason: Hypoglycemia Divalproex Sodium (Depakote Sprinkle) 250 mg PO BID [facility] Last Admin: 03/15/18 03:00 Dose: Not Given Finasteride (Proscar) 5 mg PO [facility] Last Admin: 03/15/18 03:01 Dose: Not Given Glucose (Glutose 15) 37.5 gm PO PRN PRN PRN Reason: Hypoglycemia Haloperidol (Haldol) 0.5 mg PO Q6H PRN Haloperidol Lactate (Haldol) 0.5 mg IM Q6H PRN Ibuprofen (Motrin) 600 mg PO Q8H PRN PRN Reason: Pain Last Admin: 03/11/18 17:09 Dose: 600 mg Lorazepam (Ativan) 0.5 mg PO Q6H PRN Lorazepam (Ativan Inj) 0.5 mg IM Q6H PRN Last Admin: 03/09/18 15:45 Dose: 0.5 mg Lorazepam (Ativan Intensol) 0.5 mg PO Q6H PRN Last Admin: 03/13/18 11:51 Dose: 0.5 mg Magnesium Hydroxide (Mom) 30 ml PO DAILY PRN PRN Reason: Constipation Last Admin: 03/13/18 08:20 Dose: 30 ml Metformin [facility] (Gluc[facility]) [facility] Last Admin: 03/14/18 17:23 Dose: 500 mg Risperidone (Risperdal) 0.25 mg PO [facility] Last Admin: 03/14/18 17:23 Dose: 0.25 mg Senna/Docusate Sodium (Senna Plus Tablet) 1 tab PO BID PRN PRN Reason: Constipation Last Admin: 03/12/18 10:48 Dose: 1 tab Sodium Chloride (Iv Flush) 10 - 80 ml IVF PRN PRN PRN Reason: Flushing Subjective: Patient seen and chart reviewed. Case discussed with treatment team. Patient is sleeping at time of rounds after being quite agitated with staff this morning and yelling. Nursing staff report patient was more cooperative yesterday overall other than spitting out his medications at one point. Patient slept 7.75 hours overnight. VSS. Patient is eating well. Psychotropic PRNs required in the past 24 hours: none. Start Time: 09:20 Stop Time: 09:40 Mental Status Exam Vitals: Last Vital Signs Temp 97.4 F 03/14/18 21:47 Pulse 83 03/14/18 21:47 Resp 18 03/14/18 21:47 BP 130/84 03/14/18 21:47 Pulse Ox 99 03/14/18 21:47 Height: 1.6 m Weight: 58 kg - Mental Status Exam Muscle Strength/Tone: Weak Dressing: Casual Grooming: Disheveled Attitude: Uncooperative (this morning) Motor Activity: Retardation Eye Contact: Good Speech: Slowed Volume: Soft Rhythm: Paucity of Language Orientation: Disoriented to time, Disoriented to place, Disoriented to situation , Oriented to person Mood: Neutral, Other (agitated on unit this morning) Rate of Thoughts: Delayed Thought Organization: [place], Confused Associations: Illogical Abstract Reasoning: Impaired, concrete Computation: Poor Computation Thought Content: Other (Poverty of thought) Perception/Psychotic: Perception Normal Language: Naming Impaired Fund of Knowledge: Poor fund of knowledge Memory: Poor-immediate, Poor-recent, Poor-remote Suicidal Ideation: None Homicidal Ideation: None Insight: Impaired Judgement: Impaired Impulse Control: Poor - Laboratory Result Diagrams: 03/15/18 07:08 03/15/18 07:08 Laboratory Results - last 24 hr 03/14/18 03/14/18 03/15/18 14:34 20:52 05:16 WBC RBC Hgb Hct MCV MCH MCHC RDW Std Deviation Plt Count MPV Immature Gran % (Auto) Neut % (Auto) Lymph % (Auto) [place] % (Auto) Eos % (Auto) Baso % (Auto) Neut # (Auto) Lymph # (Auto) [place] # (Auto) Eos # (Auto) Baso # (Auto) Abs Immat Gran (auto) Turbidity Sodium Potassium Chloride Carbon Dioxide Anion Gap BUN Creatinine GFR Calculation BUN/Creatinine Ratio Glucose Glucometer 235 200 110 Calculated Osmolality Calcium Icterus Index Specimen Hemolysis 03/15/18 03/15/18 07:08 07:08 WBC 4.2 L RBC 3.62 L Hgb 10.5 L Hct 33.5 L MCV 92.5 MCH 29.0 MCHC 31.3 RDW Std Deviation 41.1 Plt Count 258 MPV 9.7 Immature Gran % (Auto) 0.2 Neut % (Auto) 40.6 Lymph % (Auto) 47.0 H [place] % (Auto) 7.6 Eos % (Auto) 4.1 H Baso % (Auto) 0.5 Neut # (Auto) 1.7 L Lymph # (Auto) 2.0 [place] # (Auto) 0.3 Eos # (Auto) 0.2 Baso # (Auto) 0.0 Abs Immat Gran (auto) 0.01 Turbidity < 20 Sodium 143 Potassium 4.3 Chloride 105 Carbon Dioxide 30 Anion Gap 8 BUN 27.0 H Creatinine 1.2 GFR Calculation 58 BUN/Creatinine Ratio 23 Glucose 121 H Glucometer Calculated Osmolality 281 H Calcium 9.0 Icterus Index < 2 Specimen Hemolysis < 15 Assessment and Plan (1) Major neurocognitive disorder Problem details: Moderate, etiology unknown at this point, with behavioral disturbance Current visit: Yes Status: Acute Increase Risperdal to 0.5mg PO BID. Nursing to give catch-up dose after agitation this AM. Hospital Course Summary Disclaimer: The visit summary below is not to be considered part of the above Progress Note. Hospital Course: 03/04/18 Agree with admission to [facility]. Previous imaging studies were reviewed. No acute fracture of right wrist over area of tenderness to distal radius. HTN - HCTZ was discontinued while on acute. Monitor BP and may consider restarting a different agent to minimize risk for dehydration, if BP are consistently elevated. DM2 - Metformin 500 mg BID and Amaryl 2 mg daily were discontinued while on acute. Monitor sugars and may restart Metformin and monitor response. Vit B12 low-normal and methylmalonic acid is pending. 03/04/18 Psych: Start Depakote DR 250mg PO daily at dinnertime to target HS agitation. 03/05/18 Psych: Continue Depakote DR as above as patient did well last night. Will also order Vitamin B12 1000mg IM x 3 days. 03/06/18 psych note- Continue current care 03/07/18 Psych note- Continue current care 03/08/18 Psych: Will continue current care, file MHP as patient has now received medications against his will for aggression. 03/08/18: Homocysteine and MMA levels were WNL. Hgb A1c 7.7%. Several glucose readings >200. Restarted Metformin 500 mg BID on - monitor response. Pt also used to take Amaryl 2 mg daily at home. Right wrist/hand inflammation, suspect gout - improving after 1-time dose of colchicine. Continue ibuprofen. Appreciate orthopedic's assistance. Start amlodipine 5 mg daily for HTN. 03/09/18 Psych: Have filed MHP and requested emergency guardianship. Will increase Depakote to 250mg PO BID and monitor response. May need to switch to antipsychotic instead. 03/10/18 Psych: Continue Depakote as above; may still need antipsychotic for aggression. 03/11/18 Psych: Will start Risperdal 0.25mg PO BID; if antipsychotic is effective may be able to d/c Depakote. PLAN - 03/11/18 Patient continues to have episodes of agitation and physical aggression. Continue psychiatric cares per Dr. Ramirez and team. Homocysteine and MMA levels were WNL. Hgb A1c 7.7%. Several glucose readings >200. Restarted Metformin 500 mg BID on with some improvement in blood sugars. Pt also used to take Amaryl 2 mg daily at home which may need to be restarted. Continue to monitor blood sugars closely. Right wrist/hand inflammation, suspect gout continues to improve after 1-time dose of colchicine. Continue ibuprofen. Appreciate orthopedic's assistance. Hyperkalemia resolved. Labs stable. 03/12/18 Psych: If Risperdal seems to be effective in calming patient, plan to increase to 0.5mg PO BID and taper Depakote. 03/13/18 Psych note- Continue current care 03/14/18 Psych note- Pt improved. Continue current care. 03/15/18 Psych: Increase Risperdal to 0.5mg PO BID. Nursing to give catch-up dose after agitation this AM.
[2018-03-15] MEDS: AMLODIPINE 5 MG TABLET PO SCH (12:24)
[2018-03-15] MEDS: METFORMIN 500 MG TABLET PO SCH ×2 (12:25→17:14)
[2018-03-15] MEDS: CYANOCOBALAMIN (B-12) 500mcg TABLET PO SCH (12:25)
[2018-03-15] MEDS: RisperiDONE 0.5 MG TABLET PO SCH (20:15)
--- NOTE | 2018-03-16 08:32 | Neuropsych Progress Note ---
[facility] Subjective Date: 03/16/18 - Sujective/Severity of Illness Medications: Acetaminophen (Tylenol) 325 - 650 mg PO Q5H PRN PRN Reason: Discomfort Last Admin: 03/05/18 20:28 Dose: 650 mg Amlodipine Besylate (Norvasc) 5 mg PO DAILY [facility] Last Admin: 03/15/18 12:24 Dose: 5 mg Aspirin (Ecotrin) 81 mg PO HS [facility] Last Admin: 03/15/18 20:15 Dose: 81 mg Bisacodyl (Dulcolax) 10 mg RECTALLY DAILY PRN PRN Reason: Constipation Last Admin: 03/14/18 12:22 Dose: 10 mg Cyanocobalamin (Vit. B-12) 1,000 mcg PO DAILY [facility] Last Admin: 03/15/18 12:25 Dose: 1,000 mcg Dextrose (D50%W) 20 ml IVP PRN PRN PRN Reason: Hypoglycemia Divalproex Sodium (Depakote Sprinkle) 250 mg PO BID [facility] Last Admin: 03/15/18 20:14 Dose: 250 mg Finasteride (Proscar) 5 mg PO [facility] Last Admin: 03/15/18 20:15 Dose: 5 mg Glucose (Glutose 15) 37.5 gm PO PRN PRN PRN Reason: Hypoglycemia Haloperidol (Haldol) 0.5 mg PO Q6H PRN Haloperidol Lactate (Haldol) 0.5 mg IM Q6H PRN Ibuprofen (Motrin) 600 mg PO Q8H PRN PRN Reason: Pain Last Admin: 03/11/18 17:09 Dose: 600 mg Lorazepam (Ativan) 0.5 mg PO Q6H PRN Lorazepam (Ativan Inj) 0.5 mg IM Q6H PRN Last Admin: 03/09/18 15:45 Dose: 0.5 mg Lorazepam (Ativan Intensol) 0.5 mg PO Q6H PRN Last Admin: 03/13/18 11:51 Dose: 0.5 mg Magnesium Hydroxide (Mom) 30 ml PO DAILY PRN PRN Reason: Constipation Last Admin: 03/13/18 08:20 Dose: 30 ml Metformin [facility] (Glucophage) [facility] Last Admin: 03/15/18 17:14 Dose: 500 mg Risperidone (Risperdal) 0.5 mg PO BID [facility] Last Admin: 03/15/18 20:15 Dose: 0.5 mg Senna/Docusate Sodium (Senna Plus Tablet) 1 tab PO BID PRN PRN Reason: Constipation Last Admin: 03/12/18 10:48 Dose: 1 tab Sodium Chloride (Iv Flush) 10 - 80 ml IVF PRN PRN PRN Reason: Flushing Subjective: Patient seen and chart reviewed. Case discussed with treatment team. Patient is in the dayroom and has been irritable this morning. He will not respond to my attempts at interview other than saying "No!" in a gruff/loud voice. He has poverty of thought and often chuckles to himself when spoken to when in a good mood. Nursing staff report patient was labile yesterday morning and then became agitated/aggressive at time of evening shift change (1824). He was taken to his room by himself, which tends to calm him. Patient slept 7.25 hours overnight. VSS. Patient is eating well. Psychotropic PRNs required in the past 24 hours: none. Start Time: 11:20 Stop Time: 11:40 Mental Status Exam Vitals: Last Vital Signs Temp 97.6 F 03/15/18 20:09 Pulse 81 03/15/18 20:09 Resp 20 03/15/18 20:09 BP 126/67 03/15/18 20:09 Pulse Ox 97 03/15/18 20:09 Height: 1.6 m Weight: 58 kg - Mental Status Exam Muscle Strength/Tone: Weak Dressing: Casual Grooming: Disheveled Attitude: Uncooperative (this morning) Motor Activity: Retardation Eye Contact: Good Speech: Slowed Volume: Soft Rhythm: Paucity of Language Orientation: Disoriented to time, Disoriented to place, Disoriented to situation , Oriented to person Mood: Angry Affect: Hostile Rate of Thoughts: Delayed Thought Organization: [place], Confused Associations: Illogical Abstract Reasoning: Impaired, concrete Computation: Poor Computation Thought Content: Other (Poverty of thought) Perception/Psychotic: Perception Normal Language: Naming Impaired Fund of Knowledge: Poor fund of knowledge Memory: Poor-immediate, Poor-recent, Poor-remote Suicidal Ideation: None Homicidal Ideation: None Insight: Impaired Judgement: Impaired Impulse Control: Poor - Laboratory Result Diagrams: 03/15/18 07:08 03/15/18 07:08 Laboratory Results - last 24 hr 03/15/18 03/15/18 03/15/18 12:10 14:43 21:13 Glucometer 143 275 122 03/16/18 06:16 Glucometer 140 Assessment and Plan (1) Major neurocognitive disorder Problem details: Moderate, etiology unknown at this point, with behavioral disturbance Current visit: Yes Status: Acute Will change timing of Risperdal (total dose increased yesterday) to AM and 1730 prior to shift change. Will also start Lexapro 10mg PO daily to target irritability. Hospital Course Summary Disclaimer: The visit summary below is not to be considered part of the above Progress Note. Hospital Course: 03/04/18 Agree with admission to [facility]. Previous imaging studies were reviewed. No acute fracture of right wrist over area of tenderness to distal radius. HTN - HCTZ was discontinued while on acute. Monitor BP and may consider restarting a different agent to minimize risk for dehydration, if BP are consistently elevated. DM2 - Metformin 500 mg BID and Amaryl 2 mg daily were discontinued while on acute. Monitor sugars and may restart Metformin and monitor response. Vit B12 low-normal and methylmalonic acid is pending. 03/04/18 Psych: Start Depakote DR 250mg PO daily at dinnertime to target HS agitation. 03/05/18 Psych: Continue Depakote DR as above as patient did well last night. Will also order Vitamin B12 1000mg IM x 3 days. 03/06/18 psych note- Continue current care 03/07/18 Psych note- Continue current care 03/08/18 Psych: Will continue current care, file MHP as patient has now received medications against his will for aggression. 03/08/18: Homocysteine and MMA levels were WNL. Hgb A1c 7.7%. Several glucose readings >200. Restarted Metformin 500 mg BID on - monitor response. Pt also used to take Amaryl 2 mg daily at home. Right wrist/hand inflammation, suspect gout - improving after 1-time dose of colchicine. Continue ibuprofen. Appreciate orthopedic's assistance. Start amlodipine 5 mg daily for HTN. 03/09/18 Psych: Have filed MHP and requested emergency guardianship. Will increase Depakote to 250mg PO BID and monitor response. May need to switch to antipsychotic instead. 03/10/18 Psych: Continue Depakote as above; may still need antipsychotic for aggression. 03/11/18 Psych: Will start Risperdal 0.25mg PO BID; if antipsychotic is effective may be able to d/c Depakote. PLAN - 03/11/18 Patient continues to have episodes of agitation and physical aggression. Continue psychiatric cares per Dr. Ramirez and team. Homocysteine and MMA levels were WNL. Hgb A1c 7.7%. Several glucose readings >200. Restarted Metformin 500 mg BID on with some improvement in blood sugars. Pt also used to take Amaryl 2 mg daily at home which may need to be restarted. Continue to monitor blood sugars closely. Right wrist/hand inflammation, suspect gout continues to improve after 1-time dose of colchicine. Continue ibuprofen. Appreciate orthopedic's assistance. Hyperkalemia resolved. Labs stable. 03/12/18 Psych: If Risperdal seems to be effective in calming patient, plan to increase to 0.5mg PO BID and taper Depakote. 03/13/18 Psych note- Continue current care 03/14/18 Psych note- Pt improved. Continue current care. 03/15/18 Psych: Increase Risperdal to 0.5mg PO BID. Nursing to give catch-up dose after agitation this AM. 03/16/18 Psych: Will change timing of Risperdal (total dose increased yesterday) to AM and 1730 prior to shift change. Will also start Lexapro 10mg PO daily to target irritability.
[2018-03-16] MEDS: METFORMIN 500 MG TABLET PO SCH ×2 (08:54→17:36)
[2018-03-16] MEDS: AMLODIPINE 5 MG TABLET PO SCH (08:54)
[2018-03-16] MEDS: DIVALPROEX SPRINKLE 125 MG CAPSULE PO SCH ×2 (08:54→20:08)
[2018-03-16] MEDS: CYANOCOBALAMIN (B-12) 500mcg TABLET PO SCH (08:54)
[2018-03-16] MEDS: RisperiDONE 0.5 MG TABLET PO SCH ×2 (08:54→17:36)
[2018-03-16] MEDS: ASPIRIN *EC* 81 MG TABLET PO SCH (20:08)
[2018-03-16] MEDS: FINASTERIDE 5 MG TABLET PO SCH (20:08)
[2018-03-17] MEDS: AMLODIPINE 5 MG TABLET PO SCH (11:34)
[2018-03-17] MEDS: RisperiDONE 0.5 MG TABLET PO SCH ×2 (11:35→17:31)
[2018-03-17] MEDS: METFORMIN 500 MG TABLET PO SCH ×2 (11:35→17:31)
[2018-03-17] MEDS: DIVALPROEX SPRINKLE 125 MG CAPSULE PO SCH ×2 (11:35→20:05)
[2018-03-17] MEDS: CYANOCOBALAMIN (B-12) 500mcg TABLET PO SCH (11:35)
--- NOTE | 2018-03-17 14:53 | Neuropsych Progress Note ---
[facility] Subjective Date: 03/18/18 - Sujective/Severity of Illness Medications: Acetaminophen (Tylenol) 325 - 650 mg PO Q5H PRN PRN Reason: Discomfort Last Admin: 03/05/18 20:28 Dose: 650 mg Amlodipine Besylate (Norvasc) 5 mg PO DAILY [facility] Last Admin: 03/17/18 11:34 Dose: 5 mg Aspirin (Ecotrin) 81 mg PO HS [facility] Last Admin: 03/16/18 20:08 Dose: 81 mg Bisacodyl (Dulcolax) 10 mg RECTALLY DAILY PRN PRN Reason: Constipation Last Admin: 03/14/18 12:22 Dose: 10 mg Cyanocobalamin (Vit. B-12) 1,000 mcg PO DAILY [facility] Last Admin: 03/17/18 11:35 Dose: 1,000 mcg Dextrose (D50%W) 20 ml IVP PRN PRN PRN Reason: Hypoglycemia Divalproex Sodium (Depakote Sprinkle) 250 mg PO BID [facility] Last Admin: 03/17/18 11:35 Dose: 250 mg Finasteride (Proscar) 5 mg PO [facility] Last Admin: 03/16/18 20:08 Dose: 5 mg Glucose (Glutose 15) 37.5 gm PO PRN PRN PRN Reason: Hypoglycemia Haloperidol (Haldol) 0.5 mg PO Q6H PRN Haloperidol Lactate (Haldol) 0.5 mg IM Q6H PRN Ibuprofen (Motrin) 600 mg PO Q8H PRN PRN Reason: Pain Last Admin: 03/11/18 17:09 Dose: 600 mg Lorazepam (Ativan) 0.5 mg PO Q6H PRN Lorazepam (Ativan Inj) 0.5 mg IM Q6H PRN Last Admin: 03/09/18 15:45 Dose: 0.5 mg Lorazepam (Ativan Intensol) 0.5 mg PO Q6H PRN Last Admin: 03/13/18 11:51 Dose: 0.5 mg Magnesium Hydroxide (Mom) 30 ml PO DAILY PRN PRN Reason: Constipation Last Admin: 03/13/18 08:20 Dose: 30 ml Metformin [facility] (Glucophage) [facility] [place] Last Admin: 03/17/18 11:35 Dose: 500 mg Risperidone (Risperdal) 0.5 mg PO 0900,1730 [facility] Last Admin: 03/17/18 11:35 Dose: 0.5 mg Senna/Docusate Sodium (Senna Plus Tablet) 1 tab PO BID PRN PRN Reason: Constipation Last Admin: 03/12/18 10:48 Dose: 1 tab Sodium Chloride (Iv Flush) 10 - 80 ml IVF PRN PRN PRN Reason: Flushing Subjective: Patient seen and chart reviewed. Case discussed with treatment team. Patient is in his room and gives one-word answers but states that he is "good" and "sleepy". He has poverty of thought and often chuckles to himself when spoken to when in a good mood. Nursing staff report patient has short-lived mood lability with cursing at times. He does well when taken to his room by himself, which tends to calm him. Patient slept 7.75 hours overnight. VSS. Patient is eating well. Psychotropic PRNs required in the past 24 hours: none. Start Time: 09:00 Stop Time: 09:20 Mental Status Exam Vitals: Last Vital Signs Temp 98.0 F 03/17/18 08:00 Pulse 90 03/17/18 08:00 Resp 16 03/17/18 08:00 BP 143/78 H 03/17/18 08:00 Pulse Ox 97 03/17/18 08:00 Height: 1.6 m Weight: 58 kg - Mental Status Exam Muscle Strength/Tone: Weak Dressing: Casual Grooming: Disheveled Attitude: Cooperative (varies) Motor Activity: Retardation Eye Contact: Good Speech: Slowed Volume: Soft Rhythm: Paucity of Language Orientation: Disoriented to time, Disoriented to place, Disoriented to situation , Oriented to person Mood: Neutral (labile affect, mild and short-lived) Rate of Thoughts: Delayed Thought Organization: [place], Confused Associations: Illogical Abstract Reasoning: Impaired, concrete Computation: Poor Computation Thought Content: Other (Poverty of thought) Perception/Psychotic: Perception Normal Language: Naming Impaired Fund of Knowledge: Poor fund of knowledge Memory: Poor-immediate, Poor-recent, Poor-remote Suicidal Ideation: None Homicidal Ideation: None Insight: Impaired Judgement: Impaired Impulse Control: Poor - Laboratory Result Diagrams: 03/15/18 07:08 03/15/18 07:08 Laboratory Results - last 24 hr 03/16/18 03/16/1803/17/18 14:47 20:20 05:48 Glucometer 208 252 124 03/17/18 11:01 Glucometer 150 Assessment and Plan (1) Major neurocognitive disorder Problem details: Moderate, etiology unknown at this point, with behavioral disturbance Current visit: Yes Status: Acute Continue current care after recent med changes. Hospital Course Summary Disclaimer: The visit summary below is not to be considered part of the above Progress Note. Hospital Course: 03/04/18 Agree with [facility] to [facility]. Previous imaging studies were reviewed. No acute fracture of right wrist over area of tenderness to distal radius. HTN - HCTZ was discontinued while on acute. Monitor BP and may consider restarting a different agent to minimize risk for dehydration, if BP are consistently elevated. DM2 - Metformin 500 mg BID and Amaryl 2 mg daily were discontinued while on acute. Monitor sugars and may restart Metformin and monitor response. Vit B12 low-normal and methylmalonic acid is pending. 03/04/18 Psych: Start Depakote DR 250mg PO daily at dinnertime to target HS agitation. 03/05/18 Psych: Continue Depakote DR as above as patient did well last night. Will also order Vitamin B12 1000mg IM x 3 days. 03/06/18 psych note- Continue current care 03/07/18 Psych note- Continue current care 03/08/18 Psych: Will continue current care, file MHP as patient has now received medications against his will for aggression. 03/08/18: Homocysteine and MMA levels were WNL. Hgb A1c 7.7%. Several glucose readings >200. Restarted Metformin 500 mg BID on - monitor response. Pt also used to take Amaryl 2 mg daily at home. Right wrist/hand inflammation, suspect gout - improving after 1-time dose of colchicine. Continue ibuprofen. Appreciate orthopedic's assistance. Start amlodipine 5 mg daily for HTN. 03/09/18 Psych: Have filed MHP and requested emergency guardianship. Will increase Depakote to 250mg PO BID and monitor response. May need to switch to antipsychotic instead. 03/10/18 Psych: Continue Depakote as above; may still need antipsychotic for aggression. 03/11/18 Psych: Will start Risperdal 0.25mg PO BID; if antipsychotic is effective may be able to d/c Depakote. PLAN - 03/11/18 Patient continues to have episodes of agitation and physical aggression. Continue psychiatric cares per Dr. Ramirez and team. Homocysteine and MMA levels were WNL. Hgb A1c 7.7%. Several glucose readings >200. Restarted Metformin 500 mg BID on with some improvement in blood sugars. Pt also used to take Amaryl 2 mg daily at home which may need to be restarted. Continue to monitor blood sugars closely. Right wrist/hand inflammation, suspect gout continues to improve after 1-time dose of colchicine. Continue ibuprofen. Appreciate orthopedic's assistance. Hyperkalemia resolved. Labs stable. 03/12/18 Psych: If Risperdal seems to be effective in calming patient, plan to increase to 0.5mg PO BID and taper Depakote. 03/13/18 Psych note- Continue current care 03/14/18 Psych note- Pt improved. Continue current care. 03/15/18 Psych: Increase Risperdal to 0.5mg PO BID. Nursing to give catch-up dose after agitation this AM. 03/16/18 Psych: Will change timing of Risperdal (total dose increased yesterday) to AM and 1730 prior to shift change. Will also start Lexapro 10mg PO daily to target irritability. 03/17/18 Psych: Continue current care after recent med changes.
[2018-03-17] MEDS: FINASTERIDE 5 MG TABLET PO SCH (20:05)
[2018-03-17] MEDS: ASPIRIN *EC* 81 MG TABLET PO SCH (20:06)
[2018-03-18] MEDS: AMLODIPINE 5 MG TABLET PO SCH (10:11)
[2018-03-18] MEDS: DIVALPROEX SPRINKLE 125 MG CAPSULE PO SCH ×2 (10:11→20:15)
[2018-03-18] MEDS: METFORMIN 500 MG TABLET PO SCH ×2 (10:11→17:06)
[2018-03-18] MEDS: CYANOCOBALAMIN (B-12) 500mcg TABLET PO SCH (10:11)
--- NOTE | 2018-03-18 10:11 | Neuropsych Progress Note ---
[facility] Subjective Date: 03/18/18 - Sujective/Severity of Illness Medications: Acetaminophen (Tylenol) 325 - 650 mg PO Q5H PRN PRN Reason: Discomfort Last Admin: 03/05/18 20:28 Dose: 650 mg Amlodipine Besylate (Norvasc) 5 mg PO DAILY [facility] Last Admin: 03/17/18 11:34 Dose: 5 mg Aspirin (Ecotrin) 81 mg PO HS [facility] Last Admin: 03/17/18 20:06 Dose: 81 mg Bisacodyl (Dulcolax) 10 mg RECTALLY DAILY PRN PRN Reason: Constipation Last Admin: 03/14/18 12:22 Dose: 10 mg Cyanocobalamin (Vit. B-12) 1,000 mcg PO DAILY [facility] Last Admin: 03/17/18 11:35 Dose: 1,000 mcg Dextrose (D50%W) 20 ml IVP PRN PRN PRN Reason: Hypoglycemia Divalproex Sodium (Depakote Sprinkle) 250 mg PO BID [facility] Last Admin: 03/17/18 20:05 Dose: 250 mg Finasteride (Proscar) 5 mg PO [facility] Last Admin: 03/17/18 20:05 Dose: 5 mg Glucose (Glutose 15) 37.5 gm PO PRN PRN PRN Reason: Hypoglycemia Haloperidol (Haldol) 0.5 mg PO Q6H PRN Haloperidol Lactate (Haldol) 0.5 mg IM Q6H PRN Ibuprofen (Motrin) 600 mg PO Q8H PRN PRN Reason: Pain Last Admin: 03/11/18 17:09 Dose: 600 mg Lorazepam (Ativan) 0.5 mg PO Q6H PRN Lorazepam (Ativan Inj) 0.5 mg IM Q6H PRN Last Admin: 03/09/18 15:45 Dose: 0.5 mg Lorazepam (Ativan Intensol) 0.5 mg PO Q6H PRN Last Admin: 03/13/18 11:51 Dose: 0.5 mg Magnesium Hydroxide (Mom) 30 ml PO DAILY PRN PRN Reason: Constipation Last Admin: 03/13/18 08:20 Dose: 30 ml [facility]) [facility] [place] Last Admin: 03/17/18 17:31 Dose: 500 mg Risperidone (Risperdal) 0.5 mg PO 0900,1730 [facility] Last Admin: 03/17/18 17:31 Dose: 0.5 mg Senna/Docusate Sodium (Senna Plus Tablet) 1 tab PO BID PRN PRN Reason: Constipation Last Admin: 03/12/18 10:48 Dose: 1 tab Sodium Chloride (Iv Flush) 10 - 80 ml IVF PRN PRN PRN Reason: Flushing Subjective: Patient seen and chart reviewed. Case discussed with treatment team. Patient is asleep at time of rounds. He has poverty of thought and often chuckles to himself when spoken to when in a good mood. Nursing staff report patient has short-lived mood lability with cursing at times. He continues to be more irritable in the AMs. He does well when taken to his room by himself, which tends to calm him. Patient slept 11 hours overnight. VSS. Patient is eating well. Psychotropic PRNs required in the past 24 hours: none. Start Time: 06:40 Stop Time: 07:00 Mental Status Exam Vitals: Last Vital Signs Temp 96.8 F 03/18/18 08:00 Pulse 83 03/18/18 08:00 Resp 20 03/18/18 08:00 BP 142/76 H 03/18/18 08:00 Pulse Ox 99 03/18/18 08:00 Height: 1.6 m Weight: 58 kg - Mental Status Exam Muscle Strength/Tone: Weak Dressing: Casual Grooming: Disheveled Attitude: Cooperative (varies) Motor Activity: Retardation Eye Contact: Good Speech: Slowed Volume: Soft Rhythm: Paucity of Language Orientation: Disoriented to time, Disoriented to place, Disoriented to situation , Oriented to person Mood: Neutral (labile affect, mild and short-lived) Rate of Thoughts: Delayed Thought Organization: [place], Confused Associations: Illogical Abstract Reasoning: Impaired, concrete Computation: Poor Computation Thought Content: Other (Poverty of thought) Perception/Psychotic: Perception Normal Language: Naming Impaired Fund of Knowledge: Poor fund of knowledge Memory: Poor-immediate, Poor-recent, Poor-remote Suicidal Ideation: None Homicidal Ideation: None Insight: Impaired Judgement: Impaired Impulse Control: Poor - Laboratory Result Diagrams: 03/15/18 07:08 03/15/18 07:08 Laboratory Results - last 24 hr 03/17/18 03/17/18 03/17/18 11:01 17:29 19:20 Glucometer 150 203 200 03/18/18 05:43 Glucometer 132 Assessment and Plan (1) Major neurocognitive disorder Problem details: Moderate, etiology unknown at this point, with behavioral disturbance Current visit: Yes Status: Acute Continue care, focusing on behavioral management techniques. Awaiting placement. Hospital Course Summary Disclaimer: The visit summary below is not to be considered part of the above Progress Note. Hospital Course: 03/04/18 Agree with admission to [facility]. Previous imaging studies were reviewed. No acute fracture of right wrist over area of tenderness to distal radius. HTN - HCTZ was discontinued while on acute. Monitor BP and may consider restarting a different agent to minimize risk for dehydration, if BP are consistently elevated. DM2 - Metformin 500 mg BID and Amaryl 2 mg daily were discontinued while on acute. Monitor sugars and may restart Metformin and monitor response. Vit B12 low-normal and methylmalonic acid is pending. 03/04/18 Psych: Start Depakote DR 250mg PO daily at dinnertime to target HS agitation. 03/05/18 Psych: Continue Depakote DR as above as patient did well last night. Will also order Vitamin B12 1000mg IM x 3 days. 03/06/18 psych note- Continue current care 03/07/18 Psych note- Continue current care 03/08/18 Psych: Will continue current care, file MHP as patient has now received medications against his will for aggression. 03/08/18: Homocysteine and MMA levels were WNL. Hgb A1c 7.7%. Several glucose readings >200. Restarted Metformin 500 mg BID on - monitor response. Pt also used to take Amaryl 2 mg daily at home. Right wrist/hand inflammation, suspect gout - improving after 1-time dose of colchicine. Continue ibuprofen. Appreciate orthopedic's assistance. Start amlodipine 5 mg daily for HTN. 03/09/18 Psych: Have filed MHP and requested emergency guardianship. Will increase Depakote to 250mg PO BID and monitor response. May need to switch to antipsychotic instead. 03/10/18 Psych: Continue Depakote as above; may still need antipsychotic for aggression. 03/11/18 Psych: Will start Risperdal 0.25mg PO BID; if antipsychotic is effective may be able to d/c Depakote. PLAN - 03/11/18 Patient continues to have episodes of agitation and physical aggression. Continue psychiatric cares per Dr. Ramirez and team. Homocysteine and MMA levels were WNL. Hgb A1c 7.7%. Several glucose readings >200. Restarted Metformin 500 mg BID on with some improvement in blood sugars. Pt also used to take Amaryl 2 mg daily at home which may need to be restarted. Continue to monitor blood sugars closely. Right wrist/hand inflammation, suspect gout continues to improve after 1-time dose of colchicine. Continue ibuprofen. Appreciate orthopedic's assistance. Hyperkalemia resolved. Labs stable. 03/12/18 Psych: If Risperdal seems to be effective in calming patient, plan to increase to 0.5mg PO BID and taper Depakote. 03/13/18 Psych note- Continue current care 03/14/18 Psych note- Pt improved. Continue current care. 03/15/18 Psych: Increase Risperdal to 0.5mg PO BID. Nursing to give catch-up dose after agitation this AM. 03/16/18 Psych: Will change timing of Risperdal (total dose increased yesterday) to AM and 1730 prior to shift change. Will also start Lexapro 10mg PO daily to target irritability. 03/17/18 Psych: Continue current care after recent med changes. 03/18/18 Psych: Continue care, focusing on behavioral management techniques. Awaiting placement.
[2018-03-18] MEDS: RisperiDONE 0.5 MG TABLET PO SCH ×2 (10:12→17:06)
--- NOTE | 2018-03-18 10:12 | Progress Note ---
- Date 03/18/18 Subjective: Brennon is seen this morning while resting in bed. Brennon is without complaints of pain, shortness of breath or other concerns. Nursing reports no behavioral episodes overnight. Medical chart reviewed. Blood pressure appears to be mostly well controlled. Objective Vital signs: Temperature 97.8 F 03/17/18 20:03 Pulse Rate 76 03/17/18 20:03 Respiratory Rate 18 03/17/18 20:03 Blood Pressure 121/61 03/17/18 20:03 Pulse Oximetry 100 03/17/18 20:03 Height/Weight/BMI: Height 1.6 m Weight 58 kg Body Mass Index 23.4 - Constitutional Present: no acute distress, well nourished, well developed - Routine HEENT Exam Eye: Present: EOMI ENT: Present: mucous membranes moist, dentition normal - Routine Respiratory Exam Present: CTA bilaterally. Absent: wheezes - Routine Cardiovascular Exam Present: RRR, S1, S2. Absent: murmur - Routine Abdominal Exam Present: soft, normoactive bowel sounds, non distended. Absent: tenderness - Routine Extremities Exam Present: full ROM, normal capillary refill - Routine Back/Spine/Pelvis Exam Back/Spine: Present: full ROM - Routine Skin Exam Present: intact, dry, warm - Routine Neurological Exam Present: alert, oriented X3, CN II-XII intact, moving all extremities - Routine Lymphatic Exam Lymphatic: Absent: adenopathy - Routine Psychiatric Exam Present: cooperative Results - Labs CBC & Chem 7: 03/15/18 07:08 03/15/18 07:08 Assessment and Plan (1) Progressive dementia with uncertain etiology Current visit: No Status: Acute Assessment and Plan: ASSESSMENT Alzheimer's dementia Type 2 diabetes mellitus Hypertension Presumed BPH OA Unequal pupils, likely secondary to cataract surgery Mild normocytic anemia; Low Vitamin B12 PLAN - 03/18 Continue psychiatric cares per Dr. Ramirez and team. Continue to monitor blood sugars, fasting sugar this morning was 132. Patient on home metformin 500 twice a day. Patient was previously. Additionally is on home Amaryl 2 milligrams daily. NSAIDS as needed for Right wrist/hand inflammation, suspect gout continues to improve after 1-time dose of colchicine. Senna plus as needed for bowel motivation - Physician Narrative Physician: Inocencio Cronin MD Narrative: Date: 03/18/18 Time: 1640 Have independently interviewed and examined pt. Chart reviewed. Case discussed with ED physician and my [employer]. Care plan developed with my supervision; agree with above. Seen while sitting at a table. Says he is fine and denies any problems. Denies wrist pain. NAD. CTAB. RRR. s/nt/nd. CANCINO Continue on metformin and monitor. Supportive care per Dr. Ramirez and team. Hospital Course Summary Disclaimer: The visit summary below is not to be considered part of the above Progress Note. Hospital Course: 03/04/18 Agree with admission to [facility]. Previous imaging studies were reviewed. No acute fracture of right wrist over area of tenderness to distal radius. HTN - HCTZ was discontinued while on acute. Monitor BP and may consider restarting a different agent to minimize risk for dehydration, if BP are consistently elevated. DM2 - Metformin 500 mg BID and Amaryl 2 mg daily were discontinued while on acute. Monitor sugars and may restart Metformin and monitor response. Vit B12 low-normal and methylmalonic acid is pending. 03/04/18 Psych: Start Depakote DR 250mg PO daily at dinnertime to target HS agitation. 03/05/18 Psych: Continue Depakote DR as above as patient did well last night. Will also order Vitamin B12 1000mg IM x 3 days. 03/06/18 psych note- Continue current care 03/07/18 Psych note- Continue current care 03/08/18 Psych: Will continue current care, file MHP as patient has now received medications against his will for aggression. 03/08/18: Homocysteine and MMA levels were WNL. Hgb A1c 7.7%. Several glucose readings >200. Restarted Metformin 500 mg BID on - monitor response. Pt also used to take Amaryl 2 mg daily at home. Right wrist/hand inflammation, suspect gout - improving after 1-time dose of colchicine. Continue ibuprofen. Appreciate orthopedic's assistance. Start amlodipine 5 mg daily for HTN. 03/09/18 Psych: Have filed MHP and requested emergency guardianship. Will increase Depakote to 250mg PO BID and monitor response. May need to switch to antipsychotic instead. 03/10/18 Psych: Continue Depakote as above; may still need antipsychotic for aggression. 03/11/18 Psych: Will start Risperdal 0.25mg PO BID; if antipsychotic is effective may be able to d/c Depakote. PLAN - 03/11/18 Patient continues to have episodes of agitation and physical aggression. Continue psychiatric cares per Dr. Ramirez and team. Homocysteine and MMA levels were WNL. Hgb A1c 7.7%. Several glucose readings >200. Restarted Metformin 500 mg BID on with some improvement in blood sugars. Pt also used to take Amaryl 2 mg daily at home which may need to be restarted. Continue to monitor blood sugars closely. Right wrist/hand inflammation, suspect gout continues to improve after 1-time dose of colchicine. Continue ibuprofen. Appreciate orthopedic's assistance. Hyperkalemia resolved. Labs stable. 03/12/18 Psych: If Risperdal seems to be effective in calming patient, plan to increase to 0.5mg PO BID and taper Depakote. 03/13/18 Psych note- Continue current care 03/14/18 Psych note- Pt improved. Continue current care. 03/15/18 Psych: Increase Risperdal to 0.5mg PO BID. Nursing to give catch-up dose after agitation this AM. 03/16/18 Psych: Will change timing of Risperdal (total dose increased yesterday) to AM and 1730 prior to shift change. Will also start Lexapro 10mg PO daily to target irritability. 03/18 Continue psychiatric cares per Dr. Ramirez and team. Continue to monitor blood sugars, fasting sugar this morning was 132. Patient on home metformin 500 twice a day. Patient was previously. Additionally is on home Amaryl 2 milligrams daily. NSAIDS as needed for Right wrist/hand inflammation, suspect gout continues to improve after 1-time dose of colchicine. Senna plus as needed for bowel motivation
[2018-03-18] MEDS: ASPIRIN *EC* 81 MG TABLET PO SCH (20:15)
[2018-03-18] MEDS: FINASTERIDE 5 MG TABLET PO SCH (20:15)
[2018-03-19] MEDS: METFORMIN 500 MG TABLET PO SCH ×2 (10:13→17:18)
[2018-03-19] MEDS: CYANOCOBALAMIN (B-12) 500mcg TABLET PO SCH (10:13)
[2018-03-19] MEDS: RisperiDONE 0.5 MG TABLET PO SCH ×2 (10:14→17:18)
[2018-03-19] MEDS: AMLODIPINE 5 MG TABLET PO SCH (10:14)
[2018-03-19] MEDS: DIVALPROEX SPRINKLE 125 MG CAPSULE PO SCH ×2 (10:14→20:02)
--- NOTE | 2018-03-19 12:38 | Neuropsych Progress Note ---
[facility] Subjective Date: 03/19/18 - Sujective/Severity of Illness Medications: Acetaminophen (Tylenol) 325 - 650 mg PO Q5H PRN PRN Reason: Discomfort Last Admin: 03/05/18 20:28 Dose: 650 mg Amlodipine Besylate (Norvasc) 5 mg PO DAILY [facility] Last Admin: 03/19/18 10:14 Dose: 5 mg Aspirin (Ecotrin) 81 mg PO HS [facility] Last Admin: 03/18/18 20:15 Dose: Not Given Bisacodyl (Dulcolax) 10 mg RECTALLY DAILY PRN PRN Reason: Constipation Last Admin: 03/14/18 12:22 Dose: 10 mg Cyanocobalamin (Vit. B-12) 1,000 mcg PO DAILY [facility] Last Admin: 03/19/18 10:13 Dose: 1,000 mcg Dextrose (D50%W) 20 ml IVP PRN PRN PRN Reason: Hypoglycemia Divalproex Sodium (Depakote Sprinkle) 250 mg PO BID [facility] Last Admin: 03/19/18 10:14 Dose: 250 mg Finasteride (Proscar) 5 mg PO [facility] Last Admin: 03/18/18 20:15 Dose: Not Given Glucose (Glutose 15) 37.5 gm PO PRN PRN PRN Reason: Hypoglycemia Haloperidol (Haldol) 0.5 mg PO Q6H PRN Haloperidol Lactate (Haldol) 0.5 mg IM Q6H PRN Ibuprofen (Motrin) 600 mg PO Q8H PRN PRN Reason: Pain Last Admin: 03/11/18 17:09 Dose: 600 mg Lorazepam (Ativan) 0.5 mg PO Q6H PRN Lorazepam (Ativan Inj) 0.5 mg IM Q6H PRN Last Admin: 03/09/18 15:45 Dose: 0.5 mg Lorazepam (Ativan Intensol) 0.5 mg PO Q6H PRN Last Admin: 03/13/18 11:51 Dose: 0.5 mg Magnesium Hydroxide (Mom) 30 ml PO DAILY PRN PRN Reason: Constipation Last Admin: 03/13/18 08:20 Dose: 30 ml [facility] (Gl[facility]) [facility] [place] Admin: 03/19/18 10:13 Dose: 500 mg Risperidone (Risperdal) 0.5 mg PO 0900,1730 [facility] Last Admin: 03/19/18 10:14 Dose: 0.5 mg Senna/Docusate Sodium (Senna Plus Tablet) 1 tab PO BID PRN PRN Reason: Constipation Last Admin: 03/12/18 10:48 Dose: 1 tab Sodium Chloride (Iv Flush) 10 - 80 ml IVF PRN PRN PRN Reason: Flushing Subjective: Patient seen and chart reviewed. Case discussed with treatment team. Patient reports that his mood is "good" and he feels well physically. He has poverty of thought and often chuckles to himself when spoken to. Nursing staff report patient has mild irritability in the AMs. Sometimes he requires encouragement to take medications. Ultimately he has been adherent. He has not had significant behaviors otherwise in the past 24 hours. Patient slept 8.75 hours overnight. VSS. Patient is eating well. Psychotropic PRNs required in the past 24 hours: none. Start Time: 11:20 Stop Time: 11:40 Mental Status Exam Vitals: Last Vital Signs Temp 96.8 F 03/19/18 08:00 Pulse 90 03/19/18 08:00 Resp 14 03/19/18 08:00 BP 130/75 03/19/18 08:00 Pulse Ox 98 03/19/18 08:00 Height: 1.6 m Weight: 58 kg - Mental Status Exam Muscle Strength/Tone: Weak Dressing: Casual Grooming: Disheveled Attitude: Cooperative Motor Activity: Retardation Eye Contact: Good Speech: Slowed Volume: Soft Rhythm: Paucity of Language Orientation: Disoriented to time, Disoriented to place, Disoriented to situation , Oriented to person Mood: Euthymic Affect: Relaxed Rate of Thoughts: Delayed Thought Organization: [place], Confused Associations: Illogical Abstract Reasoning: Impaired, concrete Computation: Poor Computation Thought Content: Other (Poverty of thought) Perception/Psychotic: Perception Normal Language: Naming Impaired Fund of Knowledge: Poor fund of knowledge Memory: Poor-immediate, Poor-recent, Poor-remote Suicidal Ideation: None Homicidal Ideation: None Insight: Impaired Judgement: Impaired Impulse Control: Fair - Laboratory Result Diagrams: 03/15/18 07:08 03/15/18 07:08 Laboratory Results - last 24 hr 03/18/18 03/18/18 03/19/18 14:26 20:36 06:03 Glucometer 281 221 135 03/19/18 11:22 Glucometer 128 Assessment and Plan (1) Major neurocognitive disorder Problem details: Moderate, etiology unknown at this point, with behavioral disturbance Current visit: Yes Status: Acute Continue current care; awaiting finalization of plans for safe discharge as patient cannot safely return home with his . Hospital Course Summary Disclaimer: The visit summary below is not to be considered part of the above Progress Note. Hospital Course: 03/04/18 Agree with admission to [facility]. Previous imaging studies were reviewed. No acute fracture of right wrist over area of tenderness to distal radius. HTN - HCTZ was discontinued while on acute. Monitor BP and may consider restarting a different agent to minimize risk for dehydration, if BP are consistently elevated. DM2 - Metformin 500 mg BID and Amaryl 2 mg daily were discontinued while on acute. Monitor sugars and may restart Metformin and monitor response. Vit B12 low-normal and methylmalonic acid is pending. 03/04/18 Psych: Start Depakote DR 250mg PO daily at dinnertime to target HS agitation. 03/05/18 Psych: Continue Depakote DR as above as patient did well last night. Will also order Vitamin B12 1000mg IM x 3 days. 03/06/18 psych note- Continue current care 03/07/18 Psych note- Continue current care 03/08/18 Psych: Will continue current care, file MHP as patient has now received medications against his will for aggression. 03/08/18: Homocysteine and MMA levels were WNL. Hgb A1c 7.7%. Several glucose readings >200. Restarted Metformin 500 mg BID on - monitor response. Pt also used to take Amaryl 2 mg daily at home. Right wrist/hand inflammation, suspect gout - improving after 1-time dose of colchicine. Continue ibuprofen. Appreciate orthopedic's assistance. Start amlodipine 5 mg daily for HTN. 03/09/18 Psych: Have filed MHP and requested emergency guardianship. Will increase Depakote to 250mg PO BID and monitor response. May need to switch to antipsychotic instead. 03/10/18 Psych: Continue Depakote as above; may still need antipsychotic for aggression. 03/11/18 Psych: Will start Risperdal 0.25mg PO BID; if antipsychotic is effective may be able to d/c Depakote. PLAN - 03/11/18 Patient continues to have episodes of agitation and physical aggression. Continue psychiatric cares per Dr. Ramirez and team. Homocysteine and MMA levels were WNL. Hgb A1c 7.7%. Several glucose readings >200. Restarted Metformin 500 mg BID on with some improvement in blood sugars. Pt also used to take Amaryl 2 mg daily at home which may need to be restarted. Continue to monitor blood sugars closely. Right wrist/hand inflammation, suspect gout continues to improve after 1-time dose of colchicine. Continue ibuprofen. Appreciate orthopedic's assistance. Hyperkalemia resolved. Labs stable. 03/12/18 Psych: If Risperdal seems to be effective in calming patient, plan to increase to 0.5mg PO BID and taper Depakote. 03/13/18 Psych note- Continue current care 03/14/18 Psych note- Pt improved. Continue current care. 03/15/18 Psych: Increase Risperdal to 0.5mg PO BID. Nursing to give catch-up dose after agitation this AM. 03/16/18 Psych: Will change timing of Risperdal (total dose increased yesterday) to AM and 1730 prior to shift change. Will also start Lexapro 10mg PO daily to target irritability. 03/18 Continue psychiatric cares per Dr. Ramirez and team. Continue to monitor blood sugars, fasting sugar this morning was 132. Patient on home metformin 500 twice a day. Patient was previously. Additionally is on home Amaryl 2 milligrams daily. NSAIDS as needed for Right wrist/hand inflammation, suspect gout continues to improve after 1-time dose of colchicine. Senna plus as needed for bowel motivation 03/19/18 Psych: Continue current care; awaiting finalization of plans for safe discharge as patient cannot safely return home with his .
[2018-03-19] MEDS: FINASTERIDE 5 MG TABLET PO SCH (20:02)
[2018-03-19] MEDS: ASPIRIN *EC* 81 MG TABLET PO SCH (20:02)
[2018-03-20] MEDS: ACETAMINOPHEN 325 MG TABLET PO PRN (06:17)
[2018-03-20] MEDS: DIVALPROEX SPRINKLE 125 MG CAPSULE PO SCH ×3 (11:16→21:56)
[2018-03-20] MEDS: AMLODIPINE 5 MG TABLET PO SCH (11:16)
[2018-03-20] MEDS: RisperiDONE 0.5 MG TABLET PO SCH ×2 (11:16→18:33)
[2018-03-20] MEDS: METFORMIN 500 MG TABLET PO SCH ×2 (11:16→18:32)
[2018-03-20] MEDS: CYANOCOBALAMIN (B-12) 500mcg TABLET PO SCH (11:17)
[2018-03-20] MEDS: IBUPROFEN 600 MG TABLET PO PRN (11:58)
--- NOTE | 2018-03-20 16:04 | Neuropsych Progress Note ---
[facility] Subjective Date: 03/21/18 - Sujective/Severity of Illness Medications: Acetaminophen (Tylenol) 325 - 650 mg PO Q5H PRN PRN Reason: Discomfort Last Admin: 03/20/18 06:17 Dose: 650 mg Amlodipine Besylate (Norvasc) 5 mg PO DAILY [facility] Last Admin: 03/20/18 11:16 Dose: 5 mg Aspirin (Ecotrin) 81 mg PO HS [facility] Last Admin: 03/19/18 20:02 Dose: 81 mg Bisacodyl (Dulcolax) 10 mg RECTALLY DAILY PRN PRN Reason: Constipation Last Admin: 03/14/18 12:22 Dose: 10 mg Cyanocobalamin (Vit. B-12) 1,000 mcg PO DAILY [facility] Last Admin: 03/20/18 11:17 Dose: 1,000 mcg Dextrose (D50%W) 20 ml IVP PRN PRN PRN Reason: Hypoglycemia Divalproex Sodium (Depakote Sprinkle) 250 mg PO BID [facility] Last Admin: 03/20/18 11:16 Dose: 250 mg Finasteride (Proscar) 5 mg PO [facility] Last Admin: 03/19/18 20:02 Dose: 5 mg Glucose (Glutose 15) 37.5 gm PO PRN PRN PRN Reason: Hypoglycemia Haloperidol (Haldol) 0.5 mg PO Q6H PRN Haloperidol Lactate (Haldol) 0.5 mg IM Q6H PRN Ibuprofen (Motrin) 600 mg PO Q8H PRN PRN Reason: Pain Last Admin: 03/20/18 11:58 Dose: 600 mg Lorazepam (Ativan) 0.5 mg PO Q6H PRN Lorazepam (Ativan Inj) 0.5 mg IM Q6H PRN Last Admin: 03/09/18 15:45 Dose: 0.5 mg Lorazepam (Ativan Intensol) 0.5 mg PO Q6H PRN Last Admin: 03/13/18 11:51 Dose: 0.5 mg Magnesium Hydroxide (Mom) 30 ml PO DAILY PRN PRN Reason: Constipation Last Admin: 03/13/18 08:20 Dose: 30 ml Met[facility]) [facility] [place] Last Admin: 03/20/18 11:16 Dose: 500 mg Risperidone (Risperdal) 0.5 mg PO 0900,1730 [facility] Last Admin: 03/20/18 11:16 Dose: 0.5 mg Senna/Docusate Sodium (Senna Plus Tablet) 1 tab PO BID PRN PRN Reason: Constipation Last Admin: 03/12/18 10:48 Dose: 1 tab Sodium Chloride (Iv Flush) 10 - 80 ml IVF PRN PRN PRN Reason: Flushing Subjective: Patient seen and chart reviewed. Case discussed with treatment team. Patient reports that his mood is "good." His is present and reports that he is doing well. Both deny having any questions about treatment or plan for upcoming discharge. He has poverty of thought and often chuckles to himself when spoken to. Nursing staff report patient has not had significant behaviors otherwise in the past 24 hours. Patient slept 10 hours overnight. VSS. Patient is eating well. Psychotropic PRNs required in the past 24 hours: none. Start Time: 12:40 Stop Time: 13:00 Mental Status Exam Vitals: Last Vital Signs Temp 97.6 F 03/20/18 08:00 Pulse 86 03/20/18 08:00 Resp 16 03/20/18 08:00 BP 133/67 03/20/18 08:00 Pulse Ox 98 03/20/18 08:00 Height: 1.6 m Weight: 57.9 kg - Mental Status Exam Muscle Strength/Tone: Weak Dressing: Casual Grooming: Disheveled Attitude: Cooperative Motor Activity: Retardation Eye Contact: Good Speech: Slowed Volume: Soft Rhythm: Paucity of Language Orientation: Disoriented to time, Disoriented to place, Disoriented to situation , Oriented to person Mood: Euthymic Affect: Relaxed Rate of Thoughts: Delayed Thought Organization: [place], Confused Associations: Illogical Abstract Reasoning: Impaired, concrete Computation: Poor Computation Thought Content: Other (Poverty of thought) Perception/Psychotic: Perception Normal Language: Naming Impaired Fund of Knowledge: Poor fund of knowledge Memory: Poor-immediate, Poor-recent, Poor-remote Suicidal Ideation: None Homicidal Ideation: None Insight: Impaired Judgement: Impaired Impulse Control: Fair - Laboratory Result Diagrams: 03/15/18 07:08 03/15/18 07:08 Laboratory Results - last 24 hr 03/19/18 03/20/18 20:20 06:21 Glucometer 253 150 Assessment and Plan (1) Major neurocognitive disorder Problem details: Moderate, etiology unknown at this point, with behavioral disturbance Current visit: Yes Status: Acute Patient doing well overall. Plan to discharge to placement on 03/22. Hospital Course Summary Disclaimer: The visit summary below is not to be considered part of the above Progress Note. Hospital Course: 03/04/18 Agree with admission to [facility]. Previous imaging studies were reviewed. No acute fracture of right wrist over area of tenderness to distal radius. HTN - HCTZ was discontinued while on acute. Monitor BP and may consider restarting a different agent to minimize risk for dehydration, if BP are consistently elevated. DM2 - Metformin 500 mg BID and Amaryl 2 mg daily were discontinued while on acute. Monitor sugars and may restart Metformin and monitor response. Vit B12 low-normal and methylmalonic acid is pending. 03/04/18 Psych: Start Depakote DR 250mg PO daily at dinnertime to target HS agitation. 03/05/18 Psych: Continue Depakote DR as above as patient did well last night. Will also order Vitamin B12 1000mg IM x 3 days. 03/06/18 psych note- Continue current care 03/07/18 Psych note- Continue current care 03/08/18 Psych: Will continue current care, file MHP as patient has now received medications against his will for aggression. 03/08/18: Homocysteine and MMA levels were WNL. Hgb A1c 7.7%. Several glucose readings >200. Restarted Metformin 500 mg BID on - monitor response. Pt also used to take Amaryl 2 mg daily at home. Right wrist/hand inflammation, suspect gout - improving after 1-time dose of colchicine. Continue ibuprofen. Appreciate orthopedic's assistance. Start amlodipine 5 mg daily for HTN. 03/09/18 Psych: Have filed MHP and requested emergency guardianship. Will increase Depakote to 250mg PO BID and monitor response. May need to switch to antipsychotic instead. 03/10/18 Psych: Continue Depakote as above; may still need antipsychotic for aggression. 03/11/18 Psych: Will start Risperdal 0.25mg PO BID; if antipsychotic is effective may be able to d/c Depakote. PLAN - 03/11/18 Patient continues to have episodes of agitation and physical aggression. Continue psychiatric cares per Dr. Ramirez and team. Homocysteine and MMA levels were WNL. Hgb A1c 7.7%. Several glucose readings >200. Restarted Metformin 500 mg BID on with some improvement in blood sugars. Pt also used to take Amaryl 2 mg daily at home which may need to be restarted. Continue to monitor blood sugars closely. Right wrist/hand inflammation, suspect gout continues to improve after 1-time dose of colchicine. Continue ibuprofen. Appreciate orthopedic's assistance. Hyperkalemia resolved. Labs stable. 03/12/18 Psych: If Risperdal seems to be effective in calming patient, plan to increase to 0.5mg PO BID and taper Depakote. 03/13/18 Psych note- Continue current care 03/14/18 Psych note- Pt improved. Continue current care. 03/15/18 Psych: Increase Risperdal to 0.5mg PO BID. Nursing to give catch-up dose after agitation this AM. 03/16/18 Psych: Will change timing of Risperdal (total dose increased yesterday) to AM and 1730 prior to shift change. Will also start Lexapro 10mg PO daily to target irritability. 03/18 Continue psychiatric cares per Dr. Ramirez and team. Continue to monitor blood sugars, fasting sugar this morning was 132. Patient on home metformin 500 twice a day. Patient was previously. Additionally is on home Amaryl 2 milligrams daily. NSAIDS as needed for Right wrist/hand inflammation, suspect gout continues to improve after 1-time dose of colchicine. Senna plus as needed for bowel motivation 03/19/18 Psych: Continue current care; awaiting finalization of plans for safe discharge as patient cannot safely return home with his . 03/20/18 Psych: Patient doing well overall. Plan to discharge to placement on 03/22.
[2018-03-20] MEDS: ASPIRIN *EC* 81 MG TABLET PO SCH ×2 (18:35→21:56)
[2018-03-20] MEDS: FINASTERIDE 5 MG TABLET PO SCH ×2 (18:36→21:56)
[2018-03-21] MEDS: RisperiDONE 0.5 MG TABLET PO SCH ×2 (08:50→17:53)
[2018-03-21] MEDS: CYANOCOBALAMIN (B-12) 500mcg TABLET PO SCH (08:51)
[2018-03-21] MEDS: AMLODIPINE 5 MG TABLET PO SCH (08:51)
[2018-03-21] MEDS: METFORMIN 500 MG TABLET PO SCH ×2 (08:51→17:53)
[2018-03-21] MEDS: DIVALPROEX SPRINKLE 125 MG CAPSULE PO SCH ×3 (08:51→22:32)
--- NOTE | 2018-03-21 14:28 | Neuropsych Progress Note ---
[facility] Subjective Date: 03/21/18 - Sujective/Severity of Illness Medications: Acetaminophen (Tylenol) 325 - 650 mg PO Q5H PRN PRN Reason: Discomfort Last Admin: 03/20/18 06:17 Dose: 650 mg Amlodipine Besylate (Norvasc) 5 mg PO DAILY [facility] Last Admin: 03/21/18 08:51 Dose: 5 mg Aspirin (Ecotrin) 81 mg PO HS [facility] Last Admin: 03/20/18 21:56 Dose: Not Given Bisacodyl (Dulcolax) 10 mg RECTALLY DAILY PRN PRN Reason: Constipation Last Admin: 03/14/18 12:22 Dose: 10 mg Cyanocobalamin (Vit. B-12) 1,000 mcg PO DAILY [facility] Last Admin: 03/21/18 08:51 Dose: 1,000 mcg Dextrose (D50%W) 20 ml IVP PRN PRN PRN Reason: Hypoglycemia Divalproex Sodium (Depakote Sprinkle) 250 mg PO BID [facility] Last Admin: 03/21/18 08:51 Dose: 250 mg Finasteride (Proscar) [address] [facility] Last Admin: 03/20/18 21:56 Dose: Not Given Glucose (Glutose 15) 37.5 gm PO PRN PRN PRN Reason: Hypoglycemia Haloperidol (Haldol) 0.5 mg PO Q6H PRN Haloperidol Lactate (Haldol) 0.5 mg IM Q6H PRN Ibuprofen (Motrin) 600 mg PO Q8H PRN PRN Reason: Pain Last Admin: 03/20/18 11:58 Dose: 600 mg Lorazepam (Ativan) 0.5 mg PO Q6H PRN Lorazepam (Ativan Inj) 0.5 mg IM Q6H PRN Last Admin: 03/09/18 15:45 Dose: 0.5 mg Lorazepam (Ativan Intensol) 0.5 mg PO Q6H PRN Last Admin: 03/13/18 11:51 Dose: 0.5 mg Magnesium Hydroxide (Mom) 30 ml PO DAILY PRN PRN Reason: Constipation Last Admin: 03/13/18 08:20 Dose: 30 ml Metformin [facility] (Glucophage) [facility] [place] Last Admin: 03/21/18 08:51 Dose: 500 mg Risperidone (Risperdal) 0.5 mg PO 0900,1730 [facility] Last Admin: 03/21/18 08:50 Dose: 0.5 mg Senna/Docusate Sodium (Senna Plus Tablet) 1 tab PO BID PRN PRN Reason: Constipation Last Admin: 03/12/18 10:48 Dose: 1 tab Sodium Chloride (Iv Flush) 10 - 80 ml IVF PRN PRN PRN Reason: Flushing Subjective: Patient seen and chart reviewed. Case discussed with treatment team. Patient reports that his mood is "good" but he is a bit gruff, though not outright inappropriate/irritable. He has poverty of thought and often chuckles to himself when spoken to. Nursing staff report patient has not had significant behaviors otherwise in the past 24 hours. Patient slept 9 hours overnight. VSS. Patient is eating well. Psychotropic PRNs required in the past 24 hours: none. Start Time: 09:40 Stop Time: 10:00 Mental Status Exam Vitals: Last Vital Signs Temp 97.2 F 03/21/18 08:00 Pulse 84 03/21/18 08:00 Resp 16 03/21/18 08:00 BP 124/79 03/21/18 08:00 Pulse Ox 97 03/21/18 08:00 Height: 1.6 m Weight: 57.9 kg - Mental Status Exam Muscle Strength/Tone: Weak Dressing: Casual Grooming: Disheveled Attitude: Cooperative Motor Activity: Retardation Eye Contact: Good Speech: Slowed Volume: Soft Rhythm: Paucity of Language Orientation: Disoriented to time, Disoriented to place, Disoriented to situation , Oriented to person Mood: Euthymic Affect: Relaxed Rate of Thoughts: Delayed Thought Organization: [place], Confused Associations: Illogical Abstract Reasoning: Impaired, concrete Computation: Poor Computation Thought Content: Other (Poverty of thought) Perception/Psychotic: Perception Normal Language: Naming Impaired Fund of Knowledge: Poor fund of knowledge Memory: Poor-immediate, Poor-recent, Poor-remote Suicidal Ideation: None Homicidal Ideation: None Insight: Impaired Judgement: Impaired Impulse Control: Fair - Laboratory Result Diagrams: 03/15/18 07:08 03/15/18 07:08 Laboratory Results - last 24 hr 03/20/18 03/21/18 03/21/18 20:47 06:08 11:45 Glucometer 152 131 164 Assessment and Plan (1) Major neurocognitive disorder Problem details: Moderate, etiology unknown at this point, with behavioral disturbance Current visit: Yes Status: Acute Plan to discharge to memory care at [facility] on 03/22. Hospital Course Summary Disclaimer: The visit summary below is not to be considered part of the above Progress Note. Hospital Course: 03/04/18 Agree with admission to [facility]. Previous imaging studies were reviewed. No acute fracture of right wrist over area of tenderness to distal radius. HTN - HCTZ was discontinued while on acute. Monitor BP and may consider restarting a different agent to minimize risk for dehydration, if BP are consistently elevated. DM2 - Metformin 500 mg BID and Amaryl 2 mg daily were discontinued while on acute. Monitor sugars and may restart Metformin and monitor response. Vit B12 low-normal and methylmalonic acid is pending. 03/04/18 Psych: Start Depakote DR 250mg PO daily at dinnertime to target HS agitation. 03/05/18 Psych: Continue Depakote DR as above as patient did well last night. Will also order Vitamin B12 1000mg IM x 3 days. 03/06/18 psych note- Continue current care 03/07/18 Psych note- Continue current care 03/08/18 Psych: Will continue current care, file MHP as patient has now received medications against his will for aggression. 03/08/18: Homocysteine and MMA levels were WNL. Hgb A1c 7.7%. Several glucose readings >200. Restarted Metformin 500 mg BID on - monitor response. Pt also used to take Amaryl 2 mg daily at home. Right wrist/hand inflammation, suspect gout - improving after 1-time dose of colchicine. Continue ibuprofen. Appreciate orthopedic's assistance. Start amlodipine 5 mg daily for HTN. 03/09/18 Psych: Have filed MHP and requested emergency guardianship. Will increase Depakote to 250mg PO BID and monitor response. May need to switch to antipsychotic instead. 03/10/18 Psych: Continue Depakote as above; may still need antipsychotic for aggression. 03/11/18 Psych: Will start Risperdal 0.25mg PO BID; if antipsychotic is effective may be able to d/c Depakote. PLAN - 03/11/18 Patient continues to have episodes of agitation and physical aggression. Continue psychiatric cares per Dr. Ramirez and team. Homocysteine and MMA levels were WNL. Hgb A1c 7.7%. Several glucose readings >200. Restarted Metformin 500 mg BID on with some improvement in blood sugars. Pt also used to take Amaryl 2 mg daily at home which may need to be restarted. Continue to monitor blood sugars closely. Right wrist/hand inflammation, suspect gout continues to improve after 1-time dose of colchicine. Continue ibuprofen. Appreciate orthopedic's assistance. Hyperkalemia resolved. Labs stable. 03/12/18 Psych: If Risperdal seems to be effective in calming patient, plan to increase to 0.5mg PO BID and taper Depakote. 03/13/18 Psych note- Continue current care 03/14/18 Psych note- Pt improved. Continue current care. 03/15/18 Psych: Increase Risperdal to 0.5mg PO BID. Nursing to give catch-up dose after agitation this AM. 03/16/18 Psych: Will change timing of Risperdal (total dose increased yesterday) to AM and 1730 prior to shift change. Will also start Lexapro 10mg PO daily to target irritability. 03/18 Continue psychiatric cares per Dr. Ramirez and team. Continue to monitor blood sugars, fasting sugar this morning was 132. Patient on home metformin 500 twice a day. Patient was previously. Additionally is on home Amaryl 2 milligrams daily. NSAIDS as needed for Right wrist/hand inflammation, suspect gout continues to improve after 1-time dose of colchicine. Senna plus as needed for bowel motivation 03/19/18 Psych: Continue current care; awaiting finalization of plans for safe discharge as patient cannot safely return home with his . 03/20/18 Psych: Patient doing well overall. Plan to discharge to placement on 03/22. 03/22/18 Psych: Plan to discharge to memory care at [facility] on 03/22. Guardianship assignment pending.
--- NOTE | 2018-03-21 14:54 | Extended Care Facility Orders ---
Admission Orders Admit to:: [facility] Allergies/Adverse Reactions: Allergies No Known Drug Allergies Allergy (Unknown, Verified 02/15/18 10:14) Admitting Diagnosis: Demntia with behavioral disturbance Admitting Physician: Daniela Ramirez MD Attending Physician: Daniela Ramirez MD Code Status: Full Code Anticiapted Length of Stay: greater than 30 days Rehab Potential: fair Rehab Prognosis: fair Diet: 03/03/18 Breakfast Consistent Carbohydrate Diet [DIET] Calorie Level: 1999 May use Facility Protocol or Standing Orders: Yes May have flu vaccine: Yes Evaluations/Treatment: Psychiatric [facility] Certification: I certify that SNF services are required to be given on an Inpatient basis because of the patients need for snf care on a continuing basis for the condition(s) for which he/she received inpatient hospital services prior to his/her transfer to the SNF. SNF inpatient care is necessary for the following reasons Indication for [facility]: Not Applicable - Additional Information In Event of Arrest: Start CPR,call 911,send patient to the ER Resident is Aware of Diagnosis: No (due to dementia) Referrals: Shannon Arce MD [Physician] - (Dr. Ariana Arce will see patient on rounds at the facility for Hosp. follow-up. . [facility] will manage Mental Health needs at this time.) Additional Orders: We have requested guardian/conservator through [facility] and this is pending. Once finalized, may discuss code status with that person.
[2018-03-21] MEDS: ASPIRIN *EC* 81 MG TABLET PO SCH ×2 (19:29→22:31)
[2018-03-21] MEDS: FINASTERIDE 5 MG TABLET PO SCH ×2 (19:30→22:32)
[2018-03-22] MEDS: METFORMIN 500 MG TABLET PO SCH (09:35)
[2018-03-22] MEDS: RisperiDONE 0.5 MG TABLET PO SCH (09:36)
[2018-03-22] MEDS: AMLODIPINE 5 MG TABLET PO SCH (09:36)
[2018-03-22] MEDS: DIVALPROEX SPRINKLE 125 MG CAPSULE PO SCH (09:36)
[2018-03-22] MEDS: CYANOCOBALAMIN (B-12) 500mcg TABLET PO SCH (09:36)
[2018-03-22 09:50] VITALS: BP 141/72; PULSE 88; RESP 16; TEMP 97.1; O2SAT 100
--- NOTE | 2018-03-23 22:59 | Neuropsychiatric Disch Summary ---
Discharge Information Date of admission: 03/03/18 18:55 Anticipated date of discharge: 03/22/18 Attending Physician: Daniela Ramirez MD Primary care physician: Liang Landry MD Consults: 03/03/18 20:34 Case Management Consult [CONS] Routine Reason For Exam: help with placement 03/03/18 20:35 Case Management Consult [CONS] Routine Reason For Exam: Medical comorbidities Physician Consult [CONS] Routine Consulting Provider: Can Avila Reason For Exam: Medical comorbidities Ordering Provider has Notified Manual Lathe Machinist: No Comment: Nursing - please notify 03/04/18 20:32 Physician Consult [CONS] Routine Consulting Provider: Brennon Saravia Reason For Exam: right wrist pain and swelling Ordering Provider has Notified Manual Lathe Machinist: No Comment: please notify in the morning - Discharge Diagnosis (1) Major neurocognitive disorder Status: Acute Major neurocognitive disorder, mixed etiology (Alzheimer's + vascular), moderate , with behavioral disturbance Other medical conditions: Type 2 diabetes mellitus Hypertension Presumed BPH OA Unequal pupils, likely secondary to cataract surgery Mild normocytic anemia; Low Vitamin B12 - Laboratory Labs: 03/15/18 07:08 03/15/18 07:08 Date of Admission: 03/03/18 18:55 History of Present Illness: Patient is a 77 y/o , retired male who was admitted to [facility] on due to concerns for safety. After ensuring medical stabilization, patient was then admitted to [facility] on 03/03/18 for psychiatric evaluation and stabilization. He has previously been diagnosed with dementia. He also has a past hx of DMI and HTN but has been refusing his medications. He has been cursing at staff and verbally aggressive at times since admission. Patient has been living at home with his , who feels she is no longer able to safely care for him. He has been wandering from the home even in the heat, and she has not been able to redirect him to come back home with her. Per hospitalist: "Multiple imaging studies were obtained: films of right wrist/ hand revealed chronic deformity of distal radius and questionable ulnar styloid fx; CT head/c-spine were neg for acute findings. Labs were stable with the exception of mild normocytic anemia. Vit B12 was low-normal and methylmalonic acid was ordered, pending. HCTZ was held on admit d/t concern about dehydration. Hb A1c was 7.8%. Metformin and Amaryl were held d/t well- controlled blood sugars." Patient does not have a DPOA. He was willing to sign himself in to the unit and APS has been contacted re: emergency guardianship. Will file MHP if patient attempts to leave or receives medications against his will. Hospital Course This is a general summary of the patient's hospital course. For more details refer to the complete medical record. Hospital course: 03/04/18 Agree with admission to [facility]. Previous imaging studies were reviewed. No acute fracture of right wrist over area of tenderness to distal radius. HTN - HCTZ was discontinued while on acute. Monitor BP and may consider restarting a different agent to minimize risk for dehydration, if BP are consistently elevated. DM2 - Metformin 500 mg BID and Amaryl 2 mg daily were discontinued while on acute. Monitor sugars and may restart Metformin and monitor response. Vit B12 low-normal and methylmalonic acid is pending. 03/04/18 Psych: Start Depakote DR 250mg PO daily at dinnertime to target HS agitation. 03/05/18 Psych: Continue Depakote DR as above as patient did well last night. Will also order Vitamin B12 1000mg IM x 3 days. 03/06/18 psych note- Continue current care 03/07/18 Psych note- Continue current care 03/08/18 Psych: Will continue current care, file MHP as patient has now received medications against his will for aggression. 03/08/18: Homocysteine and MMA levels were WNL. Hgb A1c 7.7%. Several glucose readings >200. Restarted Metformin 500 mg BID on - monitor response. Pt also used to take Amaryl 2 mg daily at home. Right wrist/hand inflammation, suspect gout - improving after 1-time dose of colchicine. Continue ibuprofen. Appreciate orthopedic's assistance. Start amlodipine 5 mg daily for HTN. 03/09/18 Psych: Have filed MHP and requested emergency guardianship. Will increase Depakote to 250mg PO BID and monitor response. May need to switch to antipsychotic instead. 03/10/18 Psych: Continue Depakote as above; may still need antipsychotic for aggression. 03/11/18 Psych: Will start Risperdal 0.25mg PO BID; if antipsychotic is effective may be able to d/c Depakote. PLAN - 03/11/18 Patient continues to have episodes of agitation and physical aggression. Continue psychiatric cares per Dr. Ramirez and team. Homocysteine and MMA levels were WNL. Hgb A1c 7.7%. Several glucose readings >200. Restarted Metformin 500 mg BID on with some improvement in blood sugars. Pt also used to take Amaryl 2 mg daily at home which may need to be restarted. Continue to monitor blood sugars closely. Right wrist/hand inflammation, suspect gout continues to improve after 1-time dose of colchicine. Continue ibuprofen. Appreciate orthopedic's assistance. Hyperkalemia resolved. Labs stable. 03/12/18 Psych: If Risperdal seems to be effective in calming patient, plan to increase to 0.5mg PO BID and taper Depakote. 03/13/18 Psych note- Continue current care 03/14/18 Psych note- Pt improved. Continue current care. 03/15/18 Psych: Increase Risperdal to 0.5mg PO BID. Nursing to give catch-up dose after agitation this AM. 03/16/18 Psych: Will change timing of Risperdal (total dose increased yesterday) to AM and 1730 prior to shift change. Will also start Lexapro 10mg PO daily to target irritability. 03/18 Continue psychiatric cares per Dr. Ramirez and team. Continue to monitor blood sugars, fasting sugar this morning was 132. Patient on home metformin 500 twice a day. Patient was previously. Additionally is on home Amaryl 2 milligrams daily. NSAIDS as needed for Right wrist/hand inflammation, suspect gout continues to improve after 1-time dose of colchicine. Senna plus as needed for bowel motivation 03/19/18 Psych: Continue current care; awaiting finalization of plans for safe discharge as patient cannot safely return home with his . 03/20/18 Psych: Patient doing well overall. Plan to discharge to placement on 03/22. 03/22/18 Psych: Plan to discharge to memory care at [facility] on 03/22. Guardianship assignment pending. Resuscitation Status: Full Code Discharge Plan - Med Rec/Dispo Referrals/Follow Up: Shannon Arce MD [Physician] - (Dr. Ariana Arce will see patient on rounds at the facility for Hosp. follow-up. . Script Supervisor will manage Mental Health needs at this time.) Additional Instructions: Discharge Diagnosis: Major neurocognitive disorder, Alzheimer's type, moderate, with behavioral disturbance Reasons for Admission: Increased verbal/physical aggression, depression, and increased confusion. IN CASE OF PSYCHIATRIC EMERGENCY, CONTACT [facility] AT [phone] ( available 24 hrs daily) Prescriptions: New Divalproex Sprinkle [Depakote Sprinkle] 250 mg PO BID 30 Days #60 cap RisperiDONE [RisperDAL] 0.5 mg PO 0900,1730 30 Days #60 tab Amlodipine [Norvasc] 5 mg PO DAILY tab Metformin [Glucophage] 500 mg PO BIDWM tab Continue Finasteride [Proscar] 5 mg PO HS Aspirin [Aspirin EC] 81 mg PO HS Discontinued Donepezil [Aricept 10 mg] 10 mg PO HS - Disposition 04 To [facility] Home/Facility - Dismissal Complete Discharge Instructions are:: Complete
== END 2018-03-22 10:10 | DRG 57 ==
LOC: GEN 18:55
PROVIDERS: ADMIT Psychiatry & Neurology Psychiatry; ATTEND Psychiatry & Neurology Psychiatry